=== PATIENT | female | born 2005 | race Caucasian/White ===

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

== ENCOUNTER → 2023-01-13 | Outpatient (CLI) | payer OTHER, SELFPAY ==
[2023-01-15 22:06] LABS: Chlamydia By Nucleic Acid AMP Negative (Negative); Gonococcus By Nucleic Acid AMP Negative (Negative)
== END | disposition home or self-care (01) ==
LOC: LABSPEC 16:55
PROVIDERS: PCP Pediatrics; Referring Provider Registered Nurse; Visit Provider Registered Nurse
DX: Z11.3 Encounter for screening for infections with a predominantly sexual mode of transmission (principal)
CPT/HCPCS: 87491; 87591

== ENCOUNTER → 2023-06-30 | Outpatient (CLI) | payer OTHER, SELFPAY ==
[2023-06-30 18:19] LABS: Absolute Lymphocyte Count 2.79 X10^3/uL (0.83-4.51); Absolute Neutrophil Count 5.4 X10^3/uL (2.0-7.7); Basophil# 0.02 X10^3/uL; Basophil% 0.2 % (0-1); Eosinophil# 0.02 X10^3/uL; Eosinophils% 0.2 % (0-5); Hematocrit 41.2 % (37-47); Hemoglobin 13.7 g/dL (12.0-15.0); Lymphocyte # 2.79 X10^3/ul (0.83-4.51); Lymphocyte % 32.4 % (19-41); Mean Corp Hgb Conc 33.3 g/dL (32-36); Mean Corpuscular Hgb 28.1 pg (27.0-32.0); Mean Corpuscular Volume 84.4 fL (81-99); Mean Platelet Vol. 9.2 fl (6.2-12.0); Monocyte# 0.38 X10^3/uL; Monocyte% 4.4 % (0-10); NRBC Flagged by Analyzer 0 % (0-5); Neutrophil # 5.37 X10^3/uL (2.7-7.7); Neutrophil % 62.6 % (47-70); Platelet Count 373 K/mm3 (150-450); RBC Distribution Width CV 13.7 % (11.6-14.6); RBC Distribution Width SD 42.1 fl (35.1-43.9); Red Blood Count 4.88 M/mm3 (4.2-5.4); White Blood Count 8.6 K/mm3 (4.4-11.0)
[2023-06-30 18:39] LABS: Vitamin B12 352 pg/mL (211-911); Vitamin D,25 Hydroxy 32.5 ng/mL
[2023-06-30 18:41] LABS: ALB/GLOB Ratio 0.9 RATIO (0.9-2.4); AST(SGOT) 11 U/L (15-37); Alanine Aminotransfer ALT/SGPT 14 U/L (13-56); Albumin, Serum 3.8 g/dL (3.2-5.0); Alkaline Phosphatase 48 U/L (45-117); Anion Gap 8 (5-15); BUN 13 mg/dL (7-18); BUN/Creat Ratio 18.2 RATIO (10-20); CRP 4.33 mg/L (0.0-3.0); Calcium,Total 9.2 mg/dL (8.5-10.1); Chloride 104 mmol/L (98-107); Creatinine, Serum 0.72 mg/dL (0.55-1.02); EST Glomerular Filtration Rate 110 mL/min (>60); Est Glom Filt Rate - Afr Amer 133 mL/min (>60); Ferritin 40 ng/mL (8-252); Globulin 4.1 g/dL (2.2-4.2); Glucose 89 mg/dL (74-106); Potassium 4.3 mmol/L (3.5-5.1); Protein, Total 7.9 g/dL (6.4-8.2); Rheumatoid Factor < 10.0 IU/mL (<15); Sodium Level 138 mmol/L (136-145); Thyroid Stim Hormone (TSH) 1.68 uIU/mL (0.358-3.74); Uric Acid 4.2 mg/dL (2.6-6.0)
[2023-06-30 18:44] LABS: Erythrocyte Sedimentation Rate 7 mm/hr (0-30)
[2023-07-02 12:09] LABS: ANTINUCLEAR ANTIBODIES DIRECT Negative (Negative)
== END | disposition home or self-care (01) ==
LOC: MTLAB 15:16
PROVIDERS: PCP Family Medicine; Referring Provider Family Medicine; Visit Provider Family Medicine
DX: M79.10 Myalgia, unspecified site (principal)
CPT/HCPCS: 36415; 80053; 82306; 82607; 82728; 83735; 84443; 84550; 85025; 85652; 86038; 86140; 86431

== ENCOUNTER → 2023-07-22 | Outpatient (CLI) | payer OTHER, SELFPAY ==
[2023-07-22 08:36] VITALS: PULSE 102; PULSE 103; PULSE 106; PULSE 108; PULSE 109; PULSE 110; PULSE 84; O2SAT 96; O2SAT 97; O2SAT 98
--- NOTE | 2023-07-23 13:16 | PCM.PSN.6M ---
PSN 6 Minute Walk Test 6 Minute Walk Test 6 Minute Walk Test: 6 Minute Walk Test PSN:6-Minute Walk Test Start: 07/22/23 08:36 Freq: Status: Active Protocol: [id number] Document 07/22/23 08:36 EW (Rec: 07/22/23 08:38 EW Desktop) 6 Minute Walk Test Date Performed 07/22/23 Time Performed 08:15 Height 5 ft 3 in Weight: 127 lb Weight in Pounds 127.0 lbs Assistive device used: None Pre-test Oxygen Delivery Method Room Air Pulse Ox 98 Pulse Rate (60-100) 84 Dyspnea Shirin Scale (0-10) 0 Exertion Shirin Scale (6-20) 6 1st minute Oxygen Delivery Method Room Air Pulse Ox 97 Pulse Rate (60-100) 109 H 2nd minute Oxygen Delivery Method Room Air Pulse Ox 96 Pulse Rate (60-100) 110 H 3rd minute Oxygen Delivery Method Room Air Pulse Ox 96 Pulse Rate (60-100) 106 H 4th minute Oxygen Delivery Method Room Air Pulse Ox 98 Pulse Rate (60-100) 102 H 5th minute Oxygen Delivery Method Room Air Pulse Ox 97 Pulse Rate (60-100) 108 H 6th minute Oxygen Delivery Method Room Air Pulse Ox 97 Pulse Rate (60-100) 109 H Post-test Oxygen Delivery Method Room Air Pulse Ox 98 Pulse Rate (60-100) 103 H Dyspnea Shirin Scale (0-10) 2 Exertion Shirin Scale (6-20) 7 Full Laps Walked 21 Partial Lap, Number of Tiles Walked 0 Total Distance Walked (ft) 1239 Interpretation Interpretation: The patient ambulated 1239 feet over the course of 6 minutes beginning on room air without assistive devices. Pretesting oxygen saturation was noted to be 98% on room air. With ambulation, the karin oxygen saturation was 96%. There was no significant exertional oxygen desaturation. Recommendations Recommendations: There is no indication for the use of supplemental oxygen at this time.
== END | disposition home or self-care (01) ==
LOC: PSN 08:18
PROVIDERS: PCP Family Medicine; Referring Provider Nurse Practitioner Acute Care; Visit Provider Nurse Practitioner Acute Care
DX: R06.02 Shortness of breath (principal)
CPT/HCPCS: 94618

== ENCOUNTER → 2023-07-24 | Outpatient (CLI) | payer OTHER, SELFPAY ==
--- NOTE | 2023-07-24 12:57 | PFT ---
INTRODUCTION: The patient is a 18-year-old female who presents for pulmonary function studies secondary to a diagnosis of shortness of breath. Respiratory therapy reported good patient effort. Bronchodilators were used during testing. INTERPRETATION: Forced expiration spirometry demonstrates no evidence of a large airways obstructive ventilatory defect. There was no significant response to aerosolized bronchodilators. Body plethysmography was performed and revealed lung volumes to be within normal limits. Diffusing capacity by single breath CO is also within normal limits. IMPRESSION: Grossly normal pulmonary function studies.
== END | disposition home or self-care (01) ==
LOC: SL 10:39
PROVIDERS: PCP Family Medicine; Referring Provider Nurse Practitioner Acute Care; Visit Provider Nurse Practitioner Acute Care
DX: G47.10 Hypersomnia, unspecified (principal); R06.02 Shortness of breath
CPT/HCPCS: 94060; 94726; 94729; 95810

== ENCOUNTER → 2023-12-05 | Outpatient (CLI) | payer OTHER, SELFPAY | END | disposition home or self-care (01) | PROVIDERS: PCP Family Medicine; Referring Provider Nurse Practitioner; Visit Provider Nurse Practitioner | DX: N39.0 Urinary tract infection, site not specified (principal) | CPT/HCPCS: 87086; 87088 ==

== ENCOUNTER → 2023-12-12 | Outpatient (CLI) | payer OTHER, SELFPAY | END | disposition home or self-care (01) | LOC: LAB 14:06 | PROVIDERS: Referring Provider Otolaryngology; Visit Provider Otolaryngology | DX: T78.40XA Allergy, unspecified, initial encounter (principal) | CPT/HCPCS: 36415; 82785; 86003 ==

== ENCOUNTER 2024-01-27 05:02 | Emergency (ER) | payer OTHER, SELFPAY ==
[2024-01-27 05:04] VITALS: BP 130/97; PULSE 89; RESP 25; TEMP 36.3; O2SAT 98; BMI 23.6
--- NOTE | 2024-01-27 05:24 | RAD_ITS ---
INDICATION: cough EXAMINATION/TECHNIQUE: X-RAY - XR Chest 2 Views COMPARISON: 09/26/2018 FINDINGS: LINES/DEVICES: None. LUNGS: No consolidation. No pneumothorax. MEDIASTINUM: Unremarkable. CARDIAC SILHOUETTE: Not enlarged. BONES AND SOFT TISSUES: No acute abnormalities. RAD/Chest PA and Lateral IMPRESSION: No evidence of active intrathoracic disease. Electronically Signed: Rola Daley MD at 7:14 EDT ,
[2024-01-27 05:40] LABS: Absolute Lymphocyte Count 3.47 X10^3/uL (0.83-4.51); Absolute Neutrophil Count 4.8 X10^3/uL (2.0-7.7); Basophil# 0.02 X10^3/uL; Basophil% 0.2 % (0-1); Eosinophil# 0.16 X10^3/uL; Eosinophils% 1.7 % (0-5); Hematocrit 35.6 % (37-47); Hemoglobin 11.9 g/dL (12.0-15.0); Lymphocyte # 3.47 X10^3/ul (0.83-4.51); Lymphocyte % 37.4 % (19-41); Mean Corp Hgb Conc 33.4 g/dL (32-36); Mean Corpuscular Hgb 27.3 pg (27.0-32.0); Mean Corpuscular Volume 81.7 fL (81-99); Mean Platelet Vol. 8.7 fl (6.2-12.0); Monocyte# 0.85 X10^3/uL; Monocyte% 9.1 % (0-10); NRBC Flagged by Analyzer 0 % (0-5); Neutrophil # 4.77 X10^3/uL (2.7-7.7); Neutrophil % 51.4 % (47-70); Platelet Count 300 K/mm3 (150-450); RBC Distribution Width CV 13.2 % (11.6-14.6); RBC Distribution Width SD 39.3 fl (35.1-43.9); Red Blood Count 4.36 M/mm3 (4.2-5.4); White Blood Count 9.3 K/mm3 (4.4-11.0)
[2024-01-27 05:57] LABS: Anion Gap 9 (5-15); BUN 9 mg/dL (7-18); BUN/Creat Ratio 14.1 RATIO (10-20); Calcium,Total 9.5 mg/dL (8.5-10.1); Chloride 105 mmol/L (98-107); Creatinine, Serum 0.64 mg/dL (0.55-1.02); EST Glomerular Filtration Rate 125 mL/min (>60); Est Glom Filt Rate - Afr Amer 151 mL/min (>60); Estimated Creatinine Clearance 115.99 ml/min; Glucose 106 mg/dL (74-106); Magnesium 1.6 mg/dL (1.6-2.6); Potassium 3.5 mmol/L (3.5-5.1); Sodium Level 136 mmol/L (136-145)
[2024-01-27] MEDS: dexAMETHasone 10 MG/ML Vial IV (06:10)
[2024-01-27] MEDS: 0.9% Normal Saline (1000mL) 1,000 ML 999 ML IV (06:10)
[2024-01-27] MEDS: Ketorolac 30 MG/ML Syringe IV (06:11)
[2024-01-27] MEDS: Orphenadrine 60 MG/2 ML Ampul IV (06:12)
--- NOTE | 2024-01-27 06:23 | EX.ED.DYSGE1 ---
HPI History of Present Illness Chief Complaint: Cough Informant: patient and family Narrative Narrative: Patient is a 18-year-old female with past medical history of asthma and anxiety. She states her asthma is relatively well-controlled with just an occasional albuterol inhaler and she states she was only admitted 1 time in her life and that was when she was a young child almost 19 years ago. 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 She reports over the last 3 days she has had nasal congestion with sore throat cough and shortness of breath sensation. She states that she feels symptoms are worsening and secondary to this comes in for evaluation [facility] Medical History ADHD Generalized anxiety disorder Depression BPPV (benign paroxysmal positional vertigo) Angioedema Earache, left Contraceptive management Sinusitis, acute, maxillary Acute otitis media, right Nausea & vomiting Abdominal pain URI (upper respiratory infection) Encounter for screening for COVID-19 GERD (gastroesophageal reflux disease) Anxiety Asthma Environmental allergies Home Medications ?Medication ?Instructions ?Recorded ?Last Taken ?Type ondansetron HCl 8 mg tablet 8 mg PO Q8H PRN nausea and 04/18/23 Unknown Rx vomiting #30 tabs clonazepam 0.5 mg tablet 0.5 mg PO DAILY PRN anxiety 07/17/23 Unknown History albuterol 90 mcg-budesonide 80 2 inh inhalation ONCE #10.7 grams 11/11/23 Unknown Rx mcg/actuation HFA aerosol inhaler (Airsupra) pantoprazole 40 mg tablet,delayed 40 mg PO BID 11/11/23 Unknown History release propranolol 20 mg tablet 20 mg PO BID 11/11/23 Unknown History sucralfate 1 gram tablet 1 g PO TID 11/11/23 Unknown History fluconazole 150 mg tablet 150 mg PO ONCE #1 TAB 12/05/23 Unknown Rx escitalopram oxalate 20 mg tablet 20 mg PO DAILY 30 days #30 tabs 12/22/23 Unknown Rx azelastine 137 mcg (0.1 %) nasal 2 spray intranasal BID #30 mL 01/27/24 Unknown Rx spray hydrocodone-homatropine 5 mg-1.5 5 ml PO 4X/DAY PRN cough 7 days 01/27/24 Unknown Rx mg/5 mL (5 mL) oral syrup (Hycodan) #140 mL prednisone 20 mg tablet 40 mg (2 x 20 mg) PO DAILY 5 days 01/27/24 Unknown Rx #10 tabs Allergy/AdvReac Type Severity Reaction Status Date / Time cyclobenzaprine (From Allergy Hives Verified 01/27/24 05:08 Flexeril) sulfamethoxazole (From Allergy Hives Verified 01/27/24 05:08 Bactrim) trimethoprim (From Bactrim) Allergy Hives Verified 01/27/24 05:08 amoxicillin (From Augmentin) AdvReac Diarrhea Verified 01/27/24 05:08 clavulanic acid (From AdvReac Diarrhea Verified 01/27/24 05:08 Augmentin) Family History Other Breast cancer Hypertension Thyroid disorder Social History Smoking Status: Never smoker alcohol intake: never substance use type: does not use what type of physical activity do you participate in: none ROS ROS ED Constitutional Constitutional ED: Reports chills, fever(s) and subjective Eyes Eyes: Denies change in vision ENT ENT ED: Reports rhinorrhea and sore throat; Denies ear pain Cardiovascular Cardiovascular: Denies chest pain Respiratory/Chest Respiratory/Chest: Reports cough and dyspnea Gastrointestinal Gastrointestinal: Denies abdominal pain, diarrhea, nausea or vomiting Genitourinary Genitourinary ED: Denies dysuria Musculoskeletal Musculoskeletal: Reports myalgias Integumentary Denies rash Neurologic Neurologic: Reports headache(s) Psychiatric Psychiatric: Reports anxiety Hematologic/Lymphatic Hematologic/Lymphatic: Denies easy bleeding or easy bruising Allergic/Immunologic Allergic/Immunologic ED: Denies mouth swelling, tongue swelling or urticaria EXAM Physical Exam Const Vital Signs: 01/27/24 05:04 01/27/24 05:08 01/27/24 07:04 Temperature 97.3 F L Temperature Source Temporal Pulse Rate 89 85 Respiratory Rate 25 H 20 H Respiratory Effort Normal Blood Pressure 130/97 H 124/91 H Blood Pressure Mean 108 102 Pulse Ox 98 98 Oxygen Delivery Method Room Air Positive well nourished and well developed General Appearance ED: well developed; Negative for pallor HEENT Reports moist mucous membranes HEENT Narrative: No tongue or lip swelling no oral lesions no airway edema or compromise Nasal mucosa is hyperemic and boggy There is cobblestoning noted in the posterior pharynx consistent with sinus drainage Eyes PERRL and EOMs intact bilaterally General Eye ED: Negative for scleral icterus Neck supple Neck Narrative: No nuchal rigidity or meningeal signs Chest Wall Chest Narrative: No bony deformity or crepitance of the chest wall but patient does have diffuse chest wall pain on palpation that she states is the same pain she has been experiencing Resp normal respiratory effort Resp Narrative: Breath sounds are slight diminished throughout with faint rhonchi in the lower lobes without nasal flaring retractions tachypnea or accessory muscle use Cardio regular rate and regular rhythm Rate: other Other Details: Heart is regular rate and rhythm without murmurs rubs or gallops Radial and carotid pulses are equal and symmetric GI normal to inspection, nondistended, normoactive bowel sounds, non-tender, non-distended and no masses Auscultation: normoactive bowel sounds Palpation: soft Extremity normal to inspection Extremity Narrative: No asymmetric edema no pitting edema negative Homans' sign bilaterally Neuro oriented x3, CN's II-XII intact bilaterally and no sensory deficits noted Sensorium / Orientation: alert Motor Exam: strength 5/5 throughout Psych Psych Narrative: Patient has a nervous/anxious affect Skin no rashes or lesions noted and no wounds General Skin Exam: Negative for jaundice or pallor MDM MDM MDM Narrative Medical decision making narrative: Patient arrived to the ER mildly tachypneic and hypertensive but was sobbing and emotional. Once her anxiety was under control her blood pressure and breathing rate improved. Differential diagnosis is for upper respiratory tract infection versus pneumonia versus pneumothorax versus acute blood loss anemia versus electrolyte abnormality. Secondary to this a chest x-ray and basic blood work was obtained. Labs revealed no clinically significant findings and chest x-ray revealed no acute lung pathology such as pneumonia pneumothorax or pneumomediastinum. After she was hydrated and given Toradol and Norflex as well as Robitussin AC she did have moderate improvement of her symptoms and vitals were improved. As she is not requiring supplemental oxygen and she is not in respiratory distress and workup does not reveal any clinically significant findings I feel she can be placed on symptomatic medication and is otherwise safe for discharge History & Record Review Discussion w/independent historian: Patient and Family Lab Data Attestation: I reviewed the patient's lab results. Labs: Laboratory Results - last 24 hr 01/27/24 05:35 WBC 9.3 RBC 4.36 Hgb 11.9 L Hct 35.6 L MCV 81.7 MCH 27.3 MCHC 33.4 RDW Std Deviation 39.3 RDW Coeff of Rene 13.2 Plt Count 300 MPV 8.7 Immature Gran % (Auto) 0.200 Neut % (Auto) 51.4 Lymph % (Auto) 37.4 [place] % (Auto) 9.1 Eos % (Auto) 1.7 Baso % (Auto) 0.2 Absolute Neuts (auto) 4.8 Absolute Lymphs (auto) 3.47 Nucleated RBC % 0 Sodium 136 Potassium 3.5 Chloride 105 Carbon Dioxide 22.0 Anion Gap 9 BUN 9 Creatinine 0.64 Estim Creat Clear Calc 115.99 Est GFR (MDRD) Af Amer 151 Est GFR (MDRD) Non-Af 125 BUN/Creatinine Ratio 14.1 Glucose 106 Calcium 9.5 Magnesium 1.6 Radiography Diagnostic Testing: Clinical Impression(s) from Imaging Studies Chest X-Ray 01/27/24 05:24 IMPRESSION: No evidence of active intrathoracic disease. Electronically Signed: Rola Daley MD at 7:14 EDT , 2 view chest x-ray as interpreted by the emergency medicine physician reveals no acute infiltrate pneumothorax or pleural effusion Discharge Plan Triage Chief Complaint: Cough ED Provider: Rafael Juárez Dx/Rx/DC Orders Clinical Impression: Viral upper respiratory tract infection with cough, Generalized anxiety disorder Instructions: ED URI, Viral, No Abx (Adult) Prescriptions: New prednisone 20 mg tablet 40 mg PO DAILY 5 Days Qty: 10 0RF azelastine 137 mcg (0.1 %) spray,non-aerosol 2 spray intranasal BID Qty: 30 0RF Rx Instructions: administer into each nostril hydrocodone-homatropine [Hycodan] 5-1.5 mg/5 mL (5 mL) syrup 5 ml PO 4X/DAY PRN (Reason: cough) 7 Days Qty: 140 0RF No Action clonazepam 0.5 mg tablet 0.5 mg PO DAILY PRN (Reason: anxiety) propranolol 20 mg tablet 20 mg PO BID sucralfate 1 gram tablet 1 g PO TID pantoprazole 40 mg tablet,delayed release (DR/EC) 40 mg PO BID Airsupra 90-80 mcg/actuation HFA aerosol inhaler 2 inh inhalation ONCE Qty: 10.7 11RF Rx Instructions: as a single dose; may repeat up to 6 doses per day (12 inhalations) escitalopram oxalate 20 mg tablet 20 mg PO DAILY 30 Days Qty: 30 2RF fluconazole 150 mg tablet 150 mg PO ONCE Qty: 1 0RF Rx Instructions: as a single dose ondansetron HCl 8 mg tablet 8 mg PO Q8H PRN (Reason: nausea and vomiting) Qty: 30 0RF Stand Alone Forms: ED Work / School Excuse Primary Care Provider: Lynda Pepper Referrals: [facility] Lynda Ramos [Primary Care Provider] - Activity Restrictions/Additional Instructions: Your symptoms are consistent with a viral upper respiratory tract infection which will take on average 2 to 3 weeks to resolve. Take the medication as directed to control symptoms and return to the ER should you have any further concerns Print Language: Slovak Disposition Disposition: Home, Self Care
[2024-01-27] MEDS: guaiFENesin/Codeine 5 ML UDC 10 ML PO (07:03)
[2024-01-27 07:04] VITALS: BP 124/91; PULSE 85; RESP 20; O2SAT 98
== END 2024-01-27 07:37 | disposition home or self-care (01) ==
PROVIDERS: Emergency Provider Emergency Medicine; Visit Provider Emergency Medicine
DX: J06.9 Acute upper respiratory infection, unspecified (principal); F41.1 Generalized anxiety disorder; R05.9 Cough, unspecified; K21.9 Gastro-esophageal reflux disease without esophagitis; F32.A Depression, unspecified; Z79.899 Other long term (current) drug therapy
CPT/HCPCS: 71046; 80048; 83735; 85025; 96361; 96374; 96375; 99282; A4216

== ENCOUNTER → 2024-03-16 | Outpatient (CLI) | payer OTHER, SELFPAY ==
--- NOTE | 2024-03-16 13:50 | RAD_ITS ---
STUDY: X-RAY - LEFT FOOT CLINICAL: Female, 19 years old. Medial foot pain with bruising and swelling. TECHNIQUE: 3 view(s) of the foot. COMPARISON: None. FINDINGS: Normal talus, calcaneus, and tarsal bones. Normal visualized subtalar, talonavicular, calcaneocuboid, tarsal and tarsometatarsal articulations. Normal metatarsi. Normal metatarsophalangeal joint of the great toe. Normal tibial and fibular sesamoid bones. Normal interphalangeal joint of the great toe. Normal phalanges of the great toe. Normal second through fifth metatarsophalangeal joints. Normal interphalangeal joints and phalanges of the lesser toes. The soft tissue structures are unremarkable. RAD/Foot min 3 Views IMPRESSION: Normal x-ray examination of the foot. Electronically Signed: Ellis Jurado MD at 14:58 EDT ,
--- NOTE | 2024-03-16 13:50 | RAD_ITS ---
STUDY: X-RAY - LEFT ANKLE REASON FOR EXAM: Female, 19 years old. Pain and swelling. No known injury. TECHNIQUE: 3 view(s) of the ankle. COMPARISON: None. FINDINGS: Normal visualized distal tibia and fibula. Normal medial and lateral malleoli. Normal tibiotalar articulation and ankle mortise. Normal visualized talus and calcaneus. The visualized subtalar, talonavicular, calcaneocuboid and tarsal articulations are normal. The soft tissue structures are unremarkable. RAD/Ankle min 3 Views IMPRESSION: Normal x-ray examination of the ankle. Electronically Signed: Ellis Jurado MD at 14:58 EDT ,
== END | disposition home or self-care (01) ==
LOC: MTRAD 13:50
PROVIDERS: Referring Provider Physician Assistant; Visit Provider Physician Assistant
DX: T14.8XXA Other injury of unspecified body region, initial encounter (principal)
CPT/HCPCS: 73610; 73630

== ENCOUNTER → 2024-03-25 | Outpatient (CLI) | payer OTHER, SELFPAY ==
[2024-03-29 03:06] LABS: Chlamydia By Nucleic Acid AMP Negative (Negative); Gonococcus By Nucleic Acid AMP Negative (Negative)
[2024-03-31 16:26] LABS: HPV Reflexed? NOT INDICATED
== END | disposition home or self-care (01) ==
LOC: LABSPEC 15:35
PROVIDERS: Referring Provider Nurse Practitioner Family; Visit Provider Nurse Practitioner Family
DX: Z12.4 Encounter for screening for malignant neoplasm of cervix (principal); N89.8 Other specified noninflammatory disorders of vagina; Z20.2 Contact with and (suspected) exposure to infections with a predominantly sexual mode of transmission; N91.2 Amenorrhea, unspecified
CPT/HCPCS: 87070; 87205; 87491; 87591; 88175; G0145

== ENCOUNTER → 2024-04-06 | Outpatient (CLI) | payer OTHER, SELFPAY ==
--- NOTE | 2024-04-06 14:58 | US_ITS ---
STUDY: ULTRASOUND OF THE FEMALE PELVIS - COMPLETE REASON FOR EXAM: Female, 19 years old. pelvic pain LMP: 02/28/2024 TECHNIQUE: Transabdominal and Transvaginal TECHNICAL QUALITY: Adequate. COMPARISON: None. FINDINGS: The uterus is retroflexed and is in a midline position. The uterus measures 6.8 x 4.5 x 3.4 cm. Normal uterine cervix. The endometrium measures 10 mm in thickness, and is hyperechoic. There is no demonstrated endometrial mass. There is no demonstrated myometrial mass. I.U.D. - The patient does not have an I.U.D. The right ovary is visualized. The right ovary measures 2.2 x 1.8 x 1.9 cm. There is no right ovarian cyst or ovarian mass. There is no visualized right adnexal mass or complex lesion. There is normal arterial and normal venous vascularity. The left ovary is visualized. The left ovary measures 1.4 x 1.2 x 2.7 cm. There is no left ovarian cyst or ovarian mass. There is no visualized left adnexal mass or complex lesion. There is normal arterial and normal venous vascularity. There is no fluid in the cul-de-sac. The pre void volume of the bladder was 383 ml. Polycystic ovary disease: No. US/Pelvic w/ Transvaginal IMPRESSION: Normal female pelvis. Electronically Signed: Danny Zurita MD at 22:46 EDT ,
== END | disposition home or self-care (01) ==
LOC: US 14:56
PROVIDERS: Referring Provider Obstetrics & Gynecology; Visit Provider Obstetrics & Gynecology
DX: R10.2 Pelvic and perineal pain (principal)
CPT/HCPCS: 76830; 76856

== ENCOUNTER 2024-07-07 15:37 | Emergency (ER) | payer OTHER, SELFPAY ==
[2024-07-07 15:37] VITALS: BP 144/113; PULSE 113; RESP 20; TEMP 37.3; O2SAT 99; BMI 26.4
--- NOTE | 2024-07-07 16:02 | US_ITS ---
EXAM: US PELVIS TRANSABDOMINAL, COMPLETE CLINICAL INDICATION: RLQ pain, hx of cyst TECHNIQUE: Transabdominal pelvic ultrasound was performed with grayscale and color Doppler imaging. COMPARISON: April 06, 2024. FINDINGS: UTERUS/CERVIX: 8 cm x 4.7 cm x 2.4 cm. Anteverted. There is no uterine mass. Normal 1.6 mm endometrial stripe thickness. RIGHT OVARY: Unremarkable. 2.7 cm x 1.8 cm x 2.2 cm. Non-enlarged, normal echogenicity. Blood flow is present in the right ovary. LEFT OVARY: Unremarkable. 3.7 cm x 2.3 cm x 1.5 cm Non-enlarged, normal echogenicity. Blood flow is present in the left ovary. FREE FLUID: None. BLADDER: Unremarkable as visualized. 9.3 cm x 7.6 cm x 9.1 cm. Wall is normal thickness for degree of distention. Calculated volume 337 cc. US/Pelvic (Non ) IMPRESSION: Unremarkable pelvic ultrasound. Electronically Signed: Mariah Griffin MD at 17:15 EST ,
--- NOTE | 2024-07-07 16:09 | EDS_ITS ---
HPI History of Present Illness Chief Complaint: Nausea/Vomiting Informant: patient Narrative Narrative: Patient is a 19-year-old female with history of generalized anxiety disorder, ADHD and GERD presenting for abdominal pain. Patient states that started rather suddenly about an hour ago. She states for she had pain in her epigastric region but it quickly radiated down her right lower quadrant. She notes that she was drinking a smoothie when this started. She notes it radiates slightly from her right lower quadrant to her suprapubic region. She had a bowel movement about 40 minutes ago that was diarrhea. She thought that maybe she had a bowel movement her pain would help but it is not. The pain has been constant but oscillates in intensity. She notes it is worse if she sits upright or takes a deep breath. She does have a history of ovarian cysts and is also been having abnormal menstrual cycles. She states has been having menstrual bleeding for the past 4 weeks. She states she follows with [facility] and they wanted to do a repeat pelvic ultrasound but she has not done it. She states she did vomit twice and it looked like brown mashed potatoes. She is worried there is blood in there. She has previously been on Protonix but ran out about 3 weeks ago has not been taking it. She denies any black or blood in her stool. She notes that she did just get the medication refilled today. Did not take any of her symptoms prior to arrival. No other complaints or concerns reported at this time. She has had prior endoscopy but never had any abdominal surgeries. 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 She denies any GI bugs going around at this time. She denies any sick contacts. [facility] Medical History URI (upper respiratory infection) Sprain of left foot Left ankle sprain ADHD Generalized anxiety disorder Depression BPPV (benign paroxysmal positional vertigo) Angioedema Earache, left Contraceptive management Sinusitis, acute, maxillary Acute otitis media, right Abdominal pain Encounter for screening for COVID-19 GERD (gastroesophageal reflux disease) Anxiety Asthma Environmental allergies Home Medications ?Medication ?Instructions ?Recorded ?Last Taken ?Type clonazepam 0.5 mg tablet 0.5 mg PO DAILY PRN anxiety 07/17/23 Unknown History pantoprazole 40 mg tablet,delayed 40 mg PO BID 11/11/23 Unknown History release propranolol 20 mg tablet 20 mg PO BID 11/11/23 Unknown History escitalopram oxalate 20 mg tablet 20 mg PO DAILY 30 days #30 tabs 02/25/24 Unknown Rx diphenhydramine HCl 25 mg capsule 25 mg PO TID PRN 03/25/24 Unknown History (Benadryl) viloxazine 200 mg capsule,extended 200 mg PO DAILY #30 caps 04/13/24 Unknown Rx release 24 hr drospirenone 3 mg-ethinyl 1 tab PO QDAY #84 tabs 06/07/24 Unknown Rx estradiol 0.02 mg tablet (Jaimie (28)) dicyclomine 10 mg capsule 20 mg (2 x 10 mg) PO TID PRN 07/07/24 Unknown Rx abdominal discomfort #20 CAPSULES doxepin 10 mg capsule 10 mg PO QHS PRN sleep #30 caps 07/07/24 Unknown Rx ondansetron 4 mg disintegrating 4 mg PO Q8H PRN PRN Nausea #15 tabs 07/07/24 Unknown Rx tablet polyethylene glycol 3350 17 17 g PO DAILY #119 grams 07/07/24 Unknown Rx gram/dose oral powder (Miralax) sennosides 8.6 mg capsule (senna) 8.6 mg PO BID PRN constipation #10 07/07/24 Unknown Rx caps simethicone 80 mg chewable tablet 80 mg PO TID PRN abdominal 07/07/24 Unknown Rx distention #20 tabs Allergy/AdvReac Type Severity Reaction Status Date / Time cyclobenzaprine (From Allergy Hives Verified 07/07/24 15:37 Flexeril) Sulfa (Sulfonamide Allergy Hives Verified 07/07/24 15:37 Antibiotics) sulfamethoxazole (From Allergy Hives Verified 07/07/24 15:37 Bactrim) trimethoprim (From Bactrim) Allergy Hives Verified 07/07/24 15:37 amoxicillin (From Augmentin) AdvReac Diarrhea Verified 07/07/24 15:37 clavulanic acid (From AdvReac Diarrhea Verified 07/07/24 15:37 Augmentin) Family History Father Afib Other Breast cancer Hypertension Thyroid disorder Social History Smoking Status: Never smoker alcohol intake: current alcohol intake frequency: a few times a week Alcohol type: wine substance use type: does not use what type of physical activity do you participate in: none ROS ROS ED Constitutional Constitutional ED: Denies chills or fever(s) Cardiovascular Cardiovascular: Denies chest pain Respiratory/Chest Respiratory/Chest: Denies cough or dyspnea Gastrointestinal Gastrointestinal: Reports abdominal pain, diarrhea, nausea and vomiting Genitourinary Genitourinary ED: Reports other Details: Abnormal vaginal bleeding ; Denies dysuria, hematuria or urinary frequency Musculoskeletal Musculoskeletal: Denies arthralgias, back pain or myalgias Integumentary Denies rash Neurologic Neurologic: Denies headache(s) Psychiatric Psychiatric: Reports anxiety Hematologic/Lymphatic Hematologic/Lymphatic: Denies easy bleeding or easy bruising EXAM Physical Exam Const Vital Signs: 07/07/24 15:37 07/07/24 17:37 07/07/24 19:00 Temperature 99.1 F Temperature Source Oral Pulse Rate 113 H 94 69 Respiratory Rate 20 H 18 16 Blood Pressure 144/113 H 138/99 H 112/78 Blood Pressure Mean 123 112 89 Pulse Ox 99 95 99 Oxygen Delivery Method Room Air Room Air 07/07/24 20:38 Temperature 97.9 F Temperature Source Pulse Rate 70 Respiratory Rate 18 Blood Pressure 110/60 Blood Pressure Mean 76 Pulse Ox 98 Oxygen Delivery Method Positive well nourished and well developed General Appearance ED: well developed and NAD HEENT Reports moist mucous membranes Eyes PERRL Neck supple Chest Wall inspection of chest normal and palpation of chest normal Resp normal respiratory effort and clear to auscultation bilaterally Cardio regular rate and regular rhythm GI Inspection: Negative for abdominal distention Auscultation: normoactive bowel sounds Palpation: soft and tender RLQ and suprapubic; Negative for guarding Extremity normal to inspection Neuro oriented x3 Sensorium / Orientation: alert Motor Exam: Negative for general weakness Psych Mood & Affect: anxious and tearful Skin no rashes or lesions noted and no wounds MDM MDM MDM Narrative Medical decision making narrative: Patient evaluated for sudden onset of abdominal pain that quickly localized to the right lower quadrant. Patient is quite anxious upon arrival. She reports associated vomiting and episode of diarrhea. Vital signs are significant for low-grade temperature by 9.1, tachycardia with a heart rate of 113 and mild hypertension with a blood pressure of 144/113. Differential includes acute appendicitis, colitis, small bowel obstruction, volvulus, intussusception, renal colic, ovarian torsion and ruptured ovarian cyst Patient is given a dose of IV Haldol she is incredibly anxious as well as nauseous and a dose of morphine for pain control. Will reevaluate for response. Patient does have improvement. She did start to complain of more pain and is given Toradol. Her lab work is incredibly normal with a normal white blood cell count, normal lactate, normal CMP and normal urinalysis. Serum is negative. Pelvic ultrasound is obtained which does not show any acute abnormali ty. Given her normal lab work and workup so far but continued pain we discussed further imaging, x-ray versus CT abdomen and pelvis. Shared decision making used and we will perform an x-ray as I do question of this could be more constipation or gas pains causing her symptoms. She is given simethicone in the emergency room. Abdominal x-ray viewed by myself as well as radiology shows moderate colonic gas but no abnormal dilation or concern for air-fluid levels. Patient does feel further improved on repeat evaluation. Is comfortable discharge home. Is given return precautions. Is given prescription for senna as well as MiraLAX for constipation, simethicone and Bentyl for abdominal pain and also prescription for Zofran. Given return precautions. Patient and her mother verbalized agreement understand this plan. Patient discharged home in stable and improved condition. Lab Data Attestation: I reviewed the patient's lab results. Labs: Laboratory Results - last 24 hr 07/07/24 07/07/24 16:11 17:00 WBC 9.0 RBC 4.57 Hgb 12.2 Hct 37.7 MCV 82.5 MCH 26.7 L MCHC 32.4 RDW Std Deviation 42.5 RDW Coeff of Rene 14.0 Plt Count 343 MPV 8.8 Immature Gran % (Auto) 0.300 Neut % (Auto) 56.5 Lymph % (Auto) 36.3 Scott % (Auto) 5.9 Eos % (Auto) 0.7 Baso % (Auto) 0.3 Absolute Neuts (auto) 5.1 Absolute Lymphs (auto) 3.27 Nucleated RBC % 0 Sodium 138 Potassium 3.5 Chloride 106 Carbon Dioxide 26.0 Anion Gap 6 BUN 13 Creatinine 0.64 Estim Creat Clear Calc 123.57 Est GFR (MDRD) Af Amer 150 Est GFR (MDRD) Non-Af 124 BUN/Creatinine Ratio 20.2 H Glucose 95 Lactic Acid 1.8 Calcium 9.1 Total Bilirubin 0.60 AST 14 L ALT 18 Alkaline Phosphatase 63 Total Protein 7.4 Albumin 3.6 Globulin 3.8 Albumin/Globulin Ratio 0.9 Serum , Qual NEGATIVE Urine Color Straw Urine Clarity Clear Urine pH 7.0 Ur Specific [place] 1.010 Urine Protein Negative Urine Glucose (UA) Normal Urine Ketones Negative Urine Occult Blood 10 H Urine Nitrite Negative Urine Bilirubin Negative Urine Urobilinogen Normal Ur Leukocyte Esterase Negative Urine RBC 0 SEEN Urine WBC 0 SEEN Ur Squamous Epith Cells 0-5 SEEN Urine Bacteria 0 SEEN Urine Mucus 0 SEEN Radiography Diagnostic Testing: Clinical Impression(s) from Imaging Studies Pelvis Ultrasound 07/07/24 16:02 IMPRESSION: Unremarkable pelvic ultrasound. Electronically Signed: Mariah Griffin MD at 17:15 EST Reading Location ID and State: [facility] / [place] Tel , Service support , Abdomen X-Ray 07/07/24 17:54 IMPRESSION: Nonspecific findings. Moderate colon gas. No suspicious dilated small bowel. Electronically Signed: Mariah Griffin MD at 20:01 EST Reading Location ID and State: [facility] / [place] Tel , Service support , Discharge Plan Triage Chief Complaint: Nausea/Vomiting ED Provider: Monserrat Baeza Dx/Rx/DC Orders Clinical Impression: Abdominal pain, Constipation Instructions: ED Abdominal Pain Unkn Cause Fem, ED Constipation (Adult) Prescriptions: New ondansetron 4 mg tablet,disintegrating 4 mg PO Q8H PRN PRN (Reason: Nausea) Qty: 15 0RF dicyclomine 10 mg capsule 20 mg PO TID PRN (Reason: abdominal discomfort) Qty: 20 0RF simethicone 80 mg tablet,chewable 80 mg PO TID PRN (Reason: abdominal distention) Qty: 20 0RF senna 8.6 mg capsule 8.6 mg PO BID PRN (Reason: constipation) Qty: 10 0RF polyethylene glycol 3350 [Miralax] 17 gram/dose powder 17 g PO DAILY Qty: 119 0RF No Action clonazepam 0.5 mg tablet 0.5 mg PO DAILY PRN (Reason: anxiety) propranolol 20 mg tablet 20 mg PO BID pantoprazole 40 mg tablet,delayed release (DR/EC) 40 mg PO BID escitalopram oxalate 20 mg tablet 20 mg PO DAILY 30 Days Qty: 30 2RF viloxazine 200 mg capsule,extended release 24hr 200 mg PO DAILY Qty: 30 2RF diphenhydramine HCl [Benadryl] 25 mg capsule 25 mg PO TID PRN drospirenone-ethinyl estradiol [Jaimie (28)] 3-0.02 mg tablet 1 tab PO QDAY Qty: 84 1RF Rx Instructions: BINH- Brand only no generic. doxepin 10 mg capsule 10 mg PO QHS PRN (Reason: sleep) Qty: 30 0RF Stand Alone Forms: ED Work / School Excuse Primary Care Provider: Gini Rodríguez Referrals: Gini Rodríguez, DO [Primary Care Provider] - Activity Restrictions/Additional Instructions: Your lab work was normal today. Your ultrasound was normal. Your x-ray showed a decent amount of stool and I suspect your pain is constipation/gas pain related. You been prescribed medications to help with this. You may alternate ibuprofen and Tylenol for pain control. If you develop fever, worsening pain or worsening vomiting please return the emergency room for repeat evaluation Print Language: Hebrew Disposition Disposition: Home, Self Care Discharge Date/Time: 07/07/24 20:38
[2024-07-07] MEDS: Haloperidol Lactate 5 MG/ML Vial 1 MG IV (16:11)
[2024-07-07] MEDS: Morphine 4 MG/ML Syringe IV (16:12)
[2024-07-07 16:21] LABS: Absolute Lymphocyte Count 3.27 X10^3/uL (0.83-4.51); Absolute Neutrophil Count 5.1 X10^3/uL (2.0-7.7); Basophil# 0.03 X10^3/uL; Basophil% 0.3 % (0-1); Eosinophil# 0.06 X10^3/uL; Eosinophils% 0.7 % (0-5); Hematocrit 37.7 % (37-47); Hemoglobin 12.2 g/dL (12.0-15.0); Lymphocyte # 3.27 X10^3/ul (0.83-4.51); Lymphocyte % 36.3 % (19-41); Mean Corp Hgb Conc 32.4 g/dL (32-36); Mean Corpuscular Hgb 26.7 pg (27.0-32.0); Mean Corpuscular Volume 82.5 fL (81-99); Mean Platelet Vol. 8.8 fl (6.2-12.0); Monocyte# 0.53 X10^3/uL; Monocyte% 5.9 % (0-10); NRBC Flagged by Analyzer 0 % (0-5); Neutrophil % 56.5 % (47-70); Platelet Count 343 K/mm3 (150-450); RBC Distribution Width SD 42.5 fl (35.1-43.9); Red Blood Count 4.57 M/mm3 (4.2-5.4)
[2024-07-07 16:36] LABS: Internal QC Validated? YES +Cl - CLEAR BKGD; Pregnancy, Serum, hCG Quali. NEGATIVE Negative
[2024-07-07 16:45] LABS: ALB/GLOB Ratio 0.9 RATIO (0.9-2.4); AST(SGOT) 14 U/L (15-37); Alanine Aminotransfer ALT/SGPT 18 U/L (13-56); Albumin, Serum 3.6 g/dL (3.2-5.0); Alkaline Phosphatase 63 U/L (45-117); Anion Gap 6 (5-15); BUN 13 mg/dL (7-18); BUN/Creat Ratio 20.2 RATIO (10-20); Calcium,Total 9.1 mg/dL (8.5-10.1); Chloride 106 mmol/L (98-107); Creatinine, Serum 0.64 mg/dL (0.55-1.02); EST Glomerular Filtration Rate 124 mL/min (>60); Est Glom Filt Rate - Afr Amer 150 mL/min (>60); Estimated Creatinine Clearance 123.57 ml/min; Globulin 3.8 g/dL (2.2-4.2); Glucose 95 mg/dL (74-106); Potassium 3.5 mmol/L (3.5-5.1); Protein, Total 7.4 g/dL (6.4-8.2); Sodium Level 138 mmol/L (136-145)
[2024-07-07 16:48] LABS: Lactic Acid 1.8 mmol/L (0.4-1.9)
[2024-07-07 17:07] LABS: Bacteria 0 SEEN /hpf (None Seen); Mucous, Urine 0 SEEN /hpf (<or=2+); Red Blood Cells-Urine 0 SEEN /hpf (0-5); White Blood Cells 0 SEEN /hpf (0-5)
[2024-07-07 17:37] VITALS: BP 138/99; PULSE 94; RESP 18; O2SAT 95
[2024-07-07 17:37] LABS: Color, Urine Straw (Yellow); Glucose, Dipstick Normal (Normal); Ketone-Dipstick Negative (Negative); Leukocyte Esterase-Dipstick Negative /ul (Negative); Nitrite-Dipstick Negative (Negative); Occult Blood-Urine 10 /ul (Negative); Protein-Dipstick Negative (Negative); Urine Bilirubin Dipstick Negative (Negative); Urine Clarity Clear (Clear); Urine Urobilinogen Normal (Normal)
--- NOTE | 2024-07-07 17:54 | RAD_ITS ---
EXAM: XR ABDOMEN, 2 VIEWS CLINICAL INDICATION: abd pain TECHNIQUE: Frontal view of the abdomen/pelvis with upright view of the abdomen. COMPARISON: January 27, 2024 chest radiograph. FINDINGS: LOWER THORAX: No acute pathology. INTRAPERITONEAL SPACE: No free air. GASTROINTESTINAL TRACT: Moderate gas in the colon. Mild gastric air bubble. Minimal if any small bowel gas. Mild intracolonic stool. Non-obstructive. No bowel or stomach distention. ORGANS: Unremarkable as visualized. No organomegaly. No abnormal calcifications. BONES/JOINTS: A lucency consistent with tampon is noted over the lower pelvis. SOFT TISSUES: No acute pathology. OTHER FINDINGS: No visible appendicolith. RAD/Abd Inc Decub and/or Erect IMPRESSION: Nonspecific findings. Moderate colon gas. No suspicious dilated small bowel. Electronically Signed: Mariah Griffin MD at 20:01 EST ,
[2024-07-07 18:09] LABS: Squamous Epithelial Cells - UA 0-5 SEEN /hpf (5-10)
[2024-07-07 19:00] VITALS: BP 112/78; PULSE 69; RESP 16; O2SAT 99
[2024-07-07] MEDS: Ketorolac 15 MG/ML Vial IV (19:11)
[2024-07-07] MEDS: SimETHICONE 80 MG Chewable Tablet PO (19:12)
[2024-07-07 20:38] VITALS: BP 110/60; PULSE 70; RESP 18; TEMP 36.6; O2SAT 98
== END 2024-07-07 20:38 | disposition home or self-care (01) ==
PROVIDERS: Emergency Provider Emergency Medicine; PCP Family Medicine; Visit Provider Emergency Medicine
DX: R10.9 Unspecified abdominal pain (principal); K59.00 Constipation, unspecified; I10 Essential (primary) hypertension; R11.2 Nausea with vomiting, unspecified; K21.9 Gastro-esophageal reflux disease without esophagitis; J45.909 Unspecified asthma, uncomplicated
CPT/HCPCS: 74019; 76856; 80053; 81001; 83605; 84703; 85025; 93976; 96374; 96375; 99282; A4216

== ENCOUNTER → 2024-08-17 | Outpatient (CLI) | payer OTHER, SELFPAY | END | disposition home or self-care (01) | LOC: RAD 13:04 | PROVIDERS: PCP Family Medicine; Referring Provider Nurse Practitioner Acute Care; Visit Provider Nurse Practitioner Acute Care | DX: K59.00 Constipation, unspecified (principal); R13.10 Dysphagia, unspecified; K21.9 Gastro-esophageal reflux disease without esophagitis; R10.84 Generalized abdominal pain | CPT/HCPCS: 74230 ==

== ENCOUNTER → 2024-08-23 | Outpatient (CLI) | payer OTHER, SELFPAY ==
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
--- NOTE | 2024-08-23 09:08 | RAD_ITS ---
STUDY: X-RAY - ESOPHAGUS (BARIUM SWALLOW) WITH FLUOROSCOPY REASON FOR EXAM: Female, 19 years old. Dysphagia, choking TECHNIQUE: 66 fluoroscopic view(s) of the esophagus were obtained following swallowing of barium. FLUOROSCOPY TIME (if supplied): (32 seconds) minutes/seconds. 34 mGy. COMPARISON: None. FINDINGS: There is no demonstrated esophageal foreign body. There is no demonstrated stricture or mucosal abnormality. Normal gastroesophageal junction, without a demonstrated hiatal hernia. The patient ingested a 12 mm tablet of barium without any difficulty. Normal visualized aortic arch and descending thoracic aorta. Normal visualized pulmonary parenchyma. Normal visualized osseous structures of the thorax. RAD/Esophagus Dual Contrast IMPRESSION: Normal plain film x-ray examination (barium swallow) of the esophagus. Electronically Signed: Ellis Jurado MD at 12:12 EST ,
== END | disposition home or self-care (01) ==
LOC: RAD 09:04
PROVIDERS: PCP Family Medicine; Referring Provider Nurse Practitioner Acute Care; Visit Provider Nurse Practitioner Acute Care
DX: K59.00 Constipation, unspecified (principal); R13.10 Dysphagia, unspecified; K21.9 Gastro-esophageal reflux disease without esophagitis; R10.84 Generalized abdominal pain

== ENCOUNTER 2024-09-16 10:03 | Day surgery (SDC) | payer OTHER, SELFPAY ==
[2024-09-16] VITALS (9 sets, daily range): BP systolic 98–177; BP diastolic 66–153; PULSE 74–96; RESP 16–18; TEMP 36.4–36.8; O2SAT 95–100; BMI 24.5
[2024-09-16 10:40] LABS: Internal QC Validated? YES +Cl - CLEAR BKGD; Pregnancy, Urine Negative Negative
--- NOTE | 2024-09-16 10:48 | PRE.ANES_ITS ---
ASA Classification* ASA Classification ASA Classification: 2 Assessment & Plan Anesthesia* Anesthesia Assessment Anesthesia Assessment: Discussed sedation and/or anesthesia options, risks, benefits, and alternatives with patient/parents/legal guardian/POA. Questions invited. The patient/parents/legal guardian/POA seems to understand and agrees to proceed with anesthesia plan. Reviewed the physical assessment, medical history, allergy history and patient home medications list prior to surgery/procedure/anesthetic and documented any changes. Performed airway and anesthesia risk assessments. Anesthesia Type Anesthesia Type: MAC History Source History Obtained from:: Patient and Chart Anesthesia Focused Assessment* Temperature: 97.5 F Pulse Rate: 96 Blood Pressure: 121/91 Respiratory Rate: 18 Pulse Ox: 98 Oxygen Delivery Method: Room Air Airway Assessment Mouth opens: >3 cm Mallampati Score: II Teeth Condition: Intact Neck Range of motion (ROM): Full ROM Focused Labs Anesthesia Preop lab: CBC WBC 9.0 K/mm3 (4.4-11.0) 07/07/24 16:11 07/07/24 RBC 4.57 M/mm3 (4.2-5.4) 07/07/24 16:11 07/07/24 Hgb 12.2 g/dL (12.0-15.0) 07/07/24 16:11 07/07/24 Hct 37.7 % (37-47) 07/07/24 16:11 07/07/24 Plt Count 343 K/mm3 (150-450) 07/07/24 16:11 07/07/24 CHEMISTRY Potassium 3.5 mmol/L (3.5-5.1) 07/07/24 16:11 07/07/24 Sodium 138 mmol/L (136-145) 07/07/24 16:11 07/07/24 Magnesium 1.6 mg/dL (1.6-2.6) 01/27/24 05:35 01/27/24 BUN 13 mg/dL (7-18) 07/07/24 16:11 07/07/24 Creatinine 0.64 mg/dL (0.55-1.02) 07/07/24 16:11 07/07/24 Glucose 95 mg/dL (74-106) 07/07/24 16:11 07/07/24 TSH 1.68 uIU/mL (0.358-3.74) 06/30/23 15:18 COAG Urine Test Negative Negative 09/16/24 10:15 09/16/24 Tst Clinic Negative 03/25/24 14:32 03/25/24 Pre-Assessment Diagnosis/Proposed Procedure Planned Operative Procedure(s): COLONOSCOPY Anesthesia History Anesthesia History - travel occupational therapist: Anesthesia History - travel occupational therapist Hx Hospitalization No 09/15/24 12:41 Any Problems With Anesthesia No 09/15/24 12:41 Cholinesterase deficiency No 09/15/24 12:41 You/Your Family Experience No 09/15/24 12:41 fever (hyperthermia) with Relationship Recent Exposure to Contagious Yes 09/16/24 10:28 Disease Does patient have nerve No 09/15/24 12:41 stimulator Patient instructed to have device shut off --Does patient have Pacemaker No 09/16/24 10:28 or ICD? When Was Last Pacemaker Check QUESTION #4 FULL TEXT: You/Your Family Experience fever (hyperthermia) with Anesthesia Last Oral Intake Last Oral intake: Last Oral Intake NPO since 05:00 09/16/24 10:28 Meds taken in AM with sips of No 09/16/24 10:28 water? Meds patient instructed to take am of surgery Any additional information?: Yes NPO since: 05:00 (Patient had water at 5 AM.) PONV PONV - travel occupational therapist: PONV - travel occupational therapist Female Yes 09/15/24 12:41 HX of Motion Sickness No 09/15/24 12:41 HX of N/V After Surgery No 09/15/24 12:41 Non-Smoker Yes 09/15/24 12:41 Duration of Surgery greater No 09/15/24 12:41 than 60 minutes Number of Risk Factors 2 09/15/24 12:41 PONV Score Moderate Risk 09/15/24 12:41 Height & Weight Height & Weight: Anesthesia: Height & Weight Height 5 ft 2 in 09/16/24 10:28 Weight: 61 kg 09/16/24 10:28 Body Mass Index (BMI) 24.5 09/16/24 10:28 Respiratory Assessment Respiratory Assessment - travel occupational therapist: Respiratory Tract Infection Hx - travel occupational therapist Hx Respiratory Tract Infection No 09/15/24 12:41 STOP Sleep Apnea STOP Sleep Apnea - travel occupational therapist: STOP Sleep Apnea - travel occupational therapist Hx Hypertension No 09/15/24 12:41 Hx Sleep Apnea No 09/15/24 12:41 CPAP BIPAP Do you snore loudly (louder No 09/15/24 12:41 than talking or can be heard Do you often feel tired/ No 09/15/24 12:41 fatigued/ sleepy during daytime? Has anyone observed you stop No 09/15/24 12:41 breathing during sleep? STOP Results Negative 09/15/24 12:41 QUESTION #5 FULL TEXT : Do you snore loudly (louder than talking or can be heard through closed doors)? 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 Specify any problems Hx of Preganancy in last 3 No 09/15/24 12:41 Months Nurse Filling Out Transfusion [facility] 09/15/24 12:41 & Questions: Date: 09/15/24 09/15/24 12:41 Time: 12:50 09/15/24 12:41 Patient unable to answer at this time (ie. confused, unrespo /Reproduction History /Reproductive History - travel occupational therapist: /Reproductive Hx- travel occupational therapist Hx Now No 09/15/24 12:41 Gestational Age (in weeks): EDC: Hx Hx Para Hx Section SAB No 09/15/24 12:41 PFSH Medical History Wears glasses ADHD Depression Anxiety Migraine headache Gastric reflux Non-smoker Asthma History of Holter monitoring Hypertension Sprain of left foot Left ankle sprain ADHD Generalized anxiety disorder Depression BPPV (benign paroxysmal positional vertigo) Angioedema Earache, left Contraceptive management Constipation Sinusitis, acute, maxillary Acute otitis media, right Abdominal pain URI (upper respiratory infection) Encounter for screening for COVID-19 GERD (gastroesophageal reflux disease) Anxiety Asthma Environmental allergies Home Medications ?Medication ?Instructions ?Recorded ?Last Taken ?Type clonazepam 0.5 mg tablet 0.5 mg PO DAILY PRN anxiety 07/17/23 09/15/24 History propranolol 20 mg tablet 20 mg PO BID 11/11/23 History diphenhydramine HCl 25 mg capsule 25 mg PO TID PRN itc missy 03/25/24 Unknown History (Benadryl) drospirenone 3 mg-ethinyl 1 tab PO QDAY #84 tabs 06/07 Unknown Rx estradiol 0.02 mg tablet (Jaimie (28)) ondansetron 4 mg disintegrating 4 mg PO Q8H PRN PRN Na usea #15 tabs 07/07/24 Unknown Rx tablet linaclotide 145 mcg capsule 145 mcg PO .COMPLEX #90 ca ps 07/15/24 Unknown Rx (Linzess) dextroamphetamine-amphetamine 5 mg 5 mg PO BID 30 days #60 tabs 09/07/24 09/15/24 Rx tablet (Adderall) escitalopram oxalate 20 mg tablet 20 mg PO DAILY 30 da ys #30 tabs 09/07/24 Unknown Rx Allergy/AdvReac Type Severity Reaction Status Date / Time cyclobenzaprine (From Allergy Hives Verified 09/16/24 10:26 Flexeril) pineapple Allergy Hives Verified 09/16/24 10:26 Sulfa (Sulfonamide Allergy Hives Verified 09/16/24 10:26 Antibiotics) sulfamethoxazole (From Allergy Hives Verified 09/16/24 10:26 Bactrim) trimethoprim (From Bactrim) Allergy Hives Verified 09/16/24 10:26 amoxicillin (From Augmentin) AdvReac Diarrhea Verified 09/16/24 10:26 clavulanic acid (From AdvReac Diarrhea Verified 09/16/24 10:26 Augmentin) Family History Father Afib Other Breast cancer Hypertension Thyroid disorder Surgical History History of esophagogastroduodenoscopy (EGD) Social History Smoking Status: Never smoker alcohol intake: current alcohol intake frequency: a few times a week Alcohol type: wine substance use type: does not use what type of physical activity do you participate in: none Review of Systems (Anesthesia) ROS Narrative System reviewed and no additional complaints, except as documented.
--- NOTE | 2024-09-16 11:02 | PCM.HP.STD ---
HPI - General General Date of Admission: 09/16/24 Date of Service: 09/16/24 Chief Complaint: abdominal pain and diarrhea HPI Narrative CHER ANTONIO, is a 19 F who presents for endoscopic evaluation of abdominal pain and diarrhea - seen in the office with mom today - pain was sharp and stabbing, sudden onset, generalized, but started in lower abdomen- changed to dull stabbing pain in ED - constant pain - she was having diarrhea prior to pain - this is unusual for her - she took a magnesium liquid liquid yesterday - took all night to work - finds that she has to take something to have a BM - denies any family h/o IBD - reports a family h/o IBS - she is seen in the office today with her mom - reports she wakes up every day and something else wrong - she has quite a bit of anxiety - c/o chronic fatigue - reports everyone thinks it is all in her head - feels like providers do not listen to her - reports she has been suffering with pain since she was a child - c/o pain every where, joints ache constantly - has never seen rheumatology - reports she breaks out in hives after every meal and they itch terribly - food allergy panel - negative but reports she knows she is allergic to pineapple - she is not taking Senna - ED prescribed Ondansetron, dicyclomine, miralax, senna - she is not taking miralax or senna - rpeorts they do not work - carafate TID and pantoprazole BID - reports reflux is an issue - reports she is unable to belch - has a fear of vomiting - has been on PPI BID for a while - EGD 5-6 years ago - normal - BM fluctuate - longest she has gone up to 2 weeks without a BM - bowels can change with dietary changes - denies any bleeding - skin prick as a child negative per patient - hives itching all over after eating - weight is fluctuating - currently in a gaining spiral B: coffee with cream L: yogurt bowl, chick-marlon-a D: rice, protein, vegetable - very little water intake - very little fiber intake [facility] Medical History Wears glasses ADHD Depression Anxiety Migraine headache Gastric reflux Non-smoker Asthma History of Holter monitoring Hypertension Sprain of left foot Left ankle sprain ADHD Generalized anxiety disorder Depression BPPV (benign paroxysmal positional vertigo) Angioedema Earache, left Contraceptive management Constipation Sinusitis, acute, maxillary Acute otitis media, right Abdominal pain URI (upper respiratory infection) Encounter for screening for COVID-19 GERD (gastroesophageal reflux disease) Anxiety Asthma Environmental allergies Home Medications ?Medication ?Instructions ?Recorded ?Last Taken ?Type clonazepam 0.5 mg tablet 0.5 mg PO DAILY PRN anxiety 07/17/23 09/15/24 History propranolol 20 mg tablet 20 mg PO BID 11/11/23 09/15/24 History diphenhydramine HCl 25 mg capsule 25 mg PO TID PRN itching 03/25/24 Unknown History (Benadryl) drospirenone 3 mg-ethinyl 1 tab PO QDAY #84 tabs 06/07/24 Unknown Rx estradiol 0.02 mg tablet (Jaimie (28)) ondansetron 4 mg disintegrating 4 mg PO Q8H PRN PRN Nausea #15 tabs 07/07/24 Unknown Rx tablet linaclotide 145 mcg capsule 145 mcg PO .COMPLEX #90 caps 07/15/24 Unknown Rx (Linzess) dextroamphetamine-amphetamine 5 mg 5 mg PO BID 30 days #60 tabs 09/07/24 09/15/24 Rx tablet (Adderall) escitalopram oxalate 20 mg tablet 20 mg PO DAILY 30 days #30 tabs 09/07/24 Unknown Rx Allergy/AdvReac Type Severity Reaction Status Date / Time cyclobenzaprine (From Allergy Hives Verified 09/16/24 10:26 Flexeril) pineapple Allergy Hives Verified 09/16/24 10:26 Sulfa (Sulfonamide Allergy Hives Verified 09/16/24 10:26 Antibiotics) sulfamethoxazole (From Allergy Hives Verified 09/16/24 10:26 Bactrim) trimethoprim (From Bactrim) Allergy Hives Verified 09/16/24 10:26 amoxicillin (From Augmentin) AdvReac Diarrhea Verified 09/16/24 10:26 clavulanic acid (From AdvReac Diarrhea Verified 09/16/24 10:26 Augmentin) Family History Father Afib Other Breast cancer Hypertension Thyroid disorder Surgical History History of esophagogastroduodenoscopy (EGD) Social History Smoking Status: Never smoker alcohol intake: current alcohol intake frequency: a few times a week Alcohol type: wine substance use type: does not use what type of physical activity do you participate in: none ROS Constitutional Constitutional: Denies fatigue, fever(s), poor appetite, weight gain or weight loss Gastrointestinal Gastrointestinal: Denies belching, bloating, change in bowel habits, change in stool character, chewing difficulty, coffee ground emesis, constipation, cramping, diarrhea, dyspepsia, dysphagia, early satiety, excessive flatus, fecal incontinence, heartburn, hematemesis, hematochezia, hemorrhoids, loose stools, melena, nausea, odynophagia, rectal bleeding, tenesmus, vomiting or weight changes Vital Signs Vital Signs Vital Signs: 09/16/24 10:28 09/16/24 10:28 09/16/24 10:55 Temperature 97.5 F L 97.5 F L Temperature Source Temporal Pulse Rate 96 96 Respiratory Rate 18 18 Respiratory Pattern Normal Blood Pressure 121/91 H 121/91 H Blood Pressure Mean 101 Blood Pressure Source Monitor Blood Pressure Position Semi-Fowlers Blood Pressure Location Right Arm Pulse Ox 98 98 Oxygen Delivery Method Room Air Room Air Weight Weight: 134 lb 7.712 oz Body Mass Index (BMI) 24.5 Physical Exam Const alert, oriented x3, no apparent distress and healthy appearing General Appearance: cooperative GI normal to inspection, nondistended, normoactive bowel sounds, soft to palpation, non-tender and non-distended Percussion: normal to percussion Rectal Exam: deferred Results Lab / Micro Data Labs: Laboratory Results - last 24 hr 09/16/24 10:15: Urine Test Negative Assessment & Plan Assessment/Plan (1) Dysphagia: (2) Constipation: (3) Diarrhea: PLAN: Plan Assessment and Plan Assessment and Plan (1) Constipation: Status: Acute (2) GERD (gastroesophageal reflux disease): Status: Acute (3) Abdominal pain: Status: Acute Qualifiers: Abdominal location: generalized Qualified Code(s): R10.84 - Generalized abdominal pain (4) Dysphagia: Status: Acute Orders: Orders Esophagus Dual Contrast 07/15/24 K21.9 - Gastro-esophageal reflux disease without esophagitis, K59.00 - Constipation, unspecified, R10.84 - Generalized abdominal pain, R13.10 - Dysphagia, unspecified Swallowing Function w/Video 07/15/24 K21.9 - Gastro-esophageal reflux disease without esophagitis, K59.00 - Constipation, unspecified, R10.84 - Generalized abdominal pain, R13.10 - Dysphagia, unspecified Colonoscopy 6 Weeks K21.9 - Gastro-esophageal reflux disease without esophagitis, K59.00 - Constipation, unspecified, R10.84 - Generalized abdominal pain, R13.10 - Dysphagia, unspecified Medications: New sucralfate (Carafate) 1 g orally dissolve in 5cc of water and drink once a daily before lunch; 90 tabs 1RF vonoprazan (Voquezna) 20 mg PO QDAY 30 tabs 3RF sod sulf-pot chloride-mag sulf 1.479-0.188- 0.225 gram (Sutab) orally Take as directed for split dose bowel prep. DO NOT follow instructions on box; PO PER PKG DIR 24 tabs 0RF linaclotide (Linzess) 145 mcg orally once daily 30 minutes before breakfast; 90 caps 2RF K59.00 - Constipation, unspecified Discontinued pantoprazole Discontinued Reason: Order Changed 40 mg PO BID sucralfate (Carafate) Discontinued Reason: Order Changed 1 g PO QAC Plan 19y/o female presents for initial consultation with complaints of abdominal pain and constipation. She was seen in the ED on 07/07/2024. CBC. CMP and UA were unremarkable in the ED. ABD x-ray revealed moderate gas. Pelvic US was unremarkable. She has quite a bit of anxiety and reports chronic generalized pain with negatiuve work-up, hives with any PO intake with previous negative allergy testing, reflux despite BID PPI and TID sucralfate, dysphagia, belching, and emetophobia. She reports a family history of IBS, denies any family h/o IBD. She reports an EGD revealed gastritis 5-6 years ago. I have made recommendations as outlined below. She will follow-up in the office post procedure. 1. Increase water intake 2. Start a probiotic (Align, Culturelle or [facility]) 3. Dissolve Carafate in 5cc of water and take 30 minutes before lunch 4. Discontinue pantoprazole 5. Start Voquezna 20mg once daily with our without food (samples provided and RX sent to [facility]) 6. Start Linzess 145mcg once daily, take on an empty stomach 30 minute before breakfast every day. Call with symptom update in 3 weeks 7. Increase dietary fiber 8. Start daily fiber supplement either Benefiber 2tsp once daily or Fibercon tablets 2 tablets once daily. 9. Follow-up with PCP for rheumatology referral 10. Schedule Cookie Swallow, Esophagram and Colonoscopy 11. Follow-up in office 2 weeks post procedure MODIFIED BOWEL PREP --WHAT YOU NEED: Mirlax 7 dose bottle, Dulcolax laxative tablets (2 tablets), Gas-X (4 tablets), Sutab prep (sent to pharmacy) 2 days before your procedure You may have a light breakfast and light lunch At 1 pm start a clear liquid diet and take 2 Gas-X tablets At 130pm take 2 Dulcolax tablets and Mix 7 dose bottle of Miralax with 32 ounces of Gatorade and put in fridge to chill At 5pm take 2 Gas-X and begin drinking Miralax at a rat eof 8 ounces every 30 minutes until gone You may continue clear liquids until bed DAY PRIOR to your procedure - follow instructions as outlined on Sutab prep instructions provided today Patient Instructions: 1. Increase water intake 2. Start a probiotic (Align, Culturelle or [facility] [facility]) 3. Dissolve Carafate in 5cc of water and take 30 minutes before lunch 4. Discontinue pantoprazole 5. Start Voquezna 20mg once daily with or without food (samples provided and RX sent to [facility]) 6. Start Linzess 145mcg once daily, take on an empty stomach 30 minute before breakfast every day. Call with symptom update in 3 weeks 7. Increase dietary fiber 8. Start daily fiber supplement either Benefiber 2tsp once daily or Fibercon tablets 2 tablets once daily. 9. Follow-up with PCP for rheumatology referral 10. Schedule Cookie Swallow, Esophagram and Colonoscopy 11. Follow-up in office 2 weeks post procedure MODIFIED BOWEL PREP --WHAT YOU NEED: Mirlax 7 dose bottle, Dulcolax laxative tablets (2 tablets), Gas-X (4 tablets), Sutab prep (sent to pharmacy) 2 days before your procedure You may have a light breakfast and light lunch At 1 pm start a clear liquid diet and take 2 Gas-X tablets At 130pm take 2 Dulcolax tablets and Mix 7 dose bottle of Miralax with 32 ounces of Gatorade and put in fridge to chill At 5pm take 2 Gas-X and begin drinking Miralax at a rat eof 8 ounces every 30 minutes until gone You may continue clear liquids until bed DAY PRIOR to your procedure - follow instructions as outlined on Sutab prep instructions provided today Plan Details Follow Up: 6 Weeks
--- NOTE | 2024-09-16 11:15 | COLBX_PTH ---
PATIENT: CHER ANTONIO LOC: EN U#:[id number] AGE/SX: 19/F ROOM: RE09/16/[address]: Dr. Colt Jackson DO : 2005 BED: DIS: 09/16/2024 SPEC #: [id number] RECD: 09/16/24 13:35 STATUS: KEANU SMITH #: [id number] AKASH: 09/16/24 11:[address]: Colt Jackson DEPT: SURGICAL PATHOLOGY RECD BY: Amish Perez ENTERED: 09/16/24 13:51 SP TYPE: COLON BX OTHR DR: Gini Rodríguez, [facility], DO Tissues: A - Ileum, NOS B - COLON BIOPSY Procedures: Surgery Specimen Level IV HEADER OPERATION: Colonoscopy, biopsy PRE-OP DIAGNOSIS: Dysphagia, constipation, diarrhea TISSUE SUBMITTED: A- Terminal ileum biopsy, B- Random colonic biopsy MICROSCOPIC DIAGNOSIS A. Terminal ileum, biopsy: Fragments of small intestinal mucosa, no pathologic diagnosis. B. 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 SJ.mr 09/17/2024 MICROSCOPIC DESCRIPTION Slides are reviewed. GROSS DESCRIPTION A. Received in fixative is one container labeled with the patient's name and designated Terminal ileum biopsy. The specimen consists of one irregular fragment of light young soft tissue that measures 0.5 x 0.3 x 0.1 cm. The specimen is totally submitted in one cassette. B. Received in fixative is one container labeled with the patient's name and designated Random colonic biopsy. The specimen consists of multiple irregular fragments of light young soft tissue that in aggregate measure 1.5 x 0.5 x 0.1 cm. The specimen is totally submitted in one cassette. mr 09/16/2024 [id number]
--- NOTE | 2024-09-16 11:31 | OP.COLON_ITS ---
Patient Name: Nona Brownlee Procedure Date: 09/16/2024 11:05 AM Date of : 2005 Age: 19 Procedure: Colonoscopy Indications: Abdominal pain in the left lower quadrant, Periumbilical abdominal pain, Abdominal pain in the right lower quadrant, Suspected irritable bowel syndrome Providers: Colt Jackson DO Referring MD: Gini Rodríguez Do Medicines: Monitored Anesthesia Care Patient Profile: This is a 19 year old female. Refer to note in patient chart for documentation of history and physical. Last Colonoscopy: none. The patient's first colonoscopy is today. Complications: No immediate complications. Procedure: Pre-Anesthesia Assessment: - Prior to the procedure, a History and Physical was performed, and patient medications and allergies were reviewed. The patient is competent. The risks and benefits of the procedure and the sedation options and risks were discussed with the patient. All questions were answered and informed consent was obtained. Patient identification and proposed procedure were verified by the physician in the pre-procedure area. Mental Status Examination: alert and oriented. Airway Examination: normal oropharyngeal airway and neck mobility. Respiratory Examination: clear to auscultation. CV Examination: normal. Prophylactic Antibiotics: The patient does not require prophylactic antibiotics. Prior Anticoagulants: The patient has taken no anticoagulant or antiplatelet agents except for NSAID medication. ASA Grade Assessment: II - A patient with mild systemic disease. After reviewing the risks and benefits, the patient was deemed in satisfactory condition to undergo the procedure. The anesthesia plan was to use monitored anesthesia care (MAC). Immediately prior to administration of medications, the patient was re-assessed for adequacy to receive sedatives. The heart rate, respiratory rate, oxygen saturations, blood pressure, adequacy of pulmonary ventilation, and response to care were monitored throughout the procedure. The physical status of the patient was re-assessed after the procedure. After I obtained informed consent, the scope was passed under direct vision. Throughout the procedure, the patient's blood pressure, pulse, and oxygen saturations were monitored continuously. The Colonoscope was introduced through the anus and advanced to the cecum, identified by appendiceal orifice and ileocecal valve. The colonoscopy was performed without difficulty. The patient tolerated the procedure well. The quality of the bowel preparation was adequate. The terminal ileum, ileocecal valve, appendiceal orifice, and rectum were photographed. Scope In: 11:14:51 AM Scope Withdrawal Time 0 hours 6 minutes 47 seconds Scope Out: 11:28:13 AM Total Procedure Duration Time 0 hours 13 minutes 22 seconds Findings: The perianal and digital rectal examinations were normal. The colon (entire examined portion) appeared normal. Biopsies were taken with a cold forceps for histology. Verification of patient identification for the specimen was done. Estimated blood loss was minimal. The terminal ileum appeared normal. Biopsies were taken with a cold forceps for histology. Verification of patient identification for the specimen was done. Estimated blood loss was minimal. Impression: - The entire examined colon is normal. Biopsied. - The examined portion of the ileum was normal. Biopsied. Recommendation: - Discharge patient to home. - Resume previous diet. - Continue present medications. - Await pathology results. - Repeat colonoscopy at age 43 for screening purposes. Procedure Code(s): --- Professional --- 41999, Colonoscopy, flexible; with biopsy, single or multiple CPT copyright 2021 [employer]. All rights reserved. The codes documented in this report are preliminary and upon medical insurance coder review may be revised to meet current compliance requirements. Colt Jackosn DO 09/16/2024 11:31:10 AM This report has been signed electronically. Number of Addenda: 0 Note Initiated On: 09/16/2024 11:05 AM
--- NOTE | 2024-09-16 11:32 | OP.CCLET_ITS ---
09/16/2024 Gini Rodríguez Do Re : Colonoscopy procedure for Nona Brownlee Dear Marcos This procedure was performed on September. My impressions and recommendations are as follows: Impressions : - The entire examined colon is normal. Biopsied. - The examined portion of the ileum was normal. Biopsied. Recommendations : - Discharge patient to home. - Resume previous diet. - Continue present medications. - Await pathology results. - Repeat colonoscopy at age 43 for screening purposes. My findings are described in the full procedure note, which is enclosed. If I can be of further assistance, please feel free to contact me at . Sincerely, Colt Jackson DO 09/16/2024 11:31:10 AM This report has been signed electronically.
--- NOTE | 2024-09-16 11:34 | PCM.POST.ANE ---
Anesthesia: Postop Eval I Current Vital Signs Temperature: 98.2 F Pulse Rate: 80 Blood Pressure: 112/68 Respiratory Rate: 16 Pulse Ox: 100 Oxygen Delivery Method: Room Air Assessment Airway patent: Yes Spontaneous unlabored respirations: Yes Mental status: Asleep nausea: No Vomiting: No Anesthesia Complication: No Fluid Hydration Crystalloid volume administer (ml): 10 Total IV fluid infused: 10 Progress Note Anesthesia document: Postop Eval 1 completed: Yes
--- NOTE | 2024-09-16 11:51 | POSTOPAN2_ITS ---
Anesthesia Postop Eval I Sum Postop Eval Completion status Anesthesia document: Postop Eval 1 completed: Yes Anesthesia Postop Eval I Summary Anesthesia Postop Eval I Summary: Anesthesia Postop Eval I: Assessment Summary Airway patent Yes 09/16/24 11:36 PLASTIC SHEETING CUTTER.[email or web address] Spontaneous unlabored Yes 09/16/24 11:36 PLASTIC SHEETING CUTTER.JSWI respirations Mental status Asleep 09/16/24 11:36 PLASTIC SHEETING CUTTER.JSWI nausea No 09/16/24 11:36 PLASTIC SHEETING CUTTER.JSWI Vomiting No 09/16/24 11:36 PLASTIC SHEETING CUTTER.JSWI Anesthesia Postop Eval I: Fluid Summary Crystalloid volume administer 10 09/16/24 11:36 PLASTIC SHEETING CUTTER.JSWI (ml) Colloids volume administered ( ml) Blood Product volume administered (ml) Total IV fluid infused 10 09/16/24 11:36 PLASTIC SHEETING CUTTER.JSWI Anesthesia Postop Eval I: Summary Notes Anesthesia Complication No 09/16/24 11:36 PLASTIC SHEETING CUTTER.JSWI Anesthesia Complication Comment: Post-operative progress note Anesthesia: Postop Eval II Evaluation Mental status: Calm and Asleep Pain Level: 0 nausea: No Vomiting: No
--- NOTE | 2024-09-16 11:51 | PCM.POSTANE2 ---
Anesthesia Postop Eval I Sum Postop Eval Completion status Anesthesia document: Postop Eval 1 completed: Yes Anesthesia Postop Eval I Summary Anesthesia Postop Eval I Summary: Anesthesia Postop Eval I: Assessment Summary Airway patent Yes 09/16/24 11:36 SPONGE PACKER.[email or web address] Spontaneous unlabored Yes 09/16/24 11:36 SPONGE PACKER.JSWI respirations Mental status Asleep 09/16/24 11:36 SPONGE PACKER.JSWI nausea No 09/16/24 11:36 SPONGE PACKER.JSWI Vomiting No 09/16/24 11:36 SPONGE PACKER.JSWI Anesthesia Postop Eval I: Fluid Summary Crystalloid volume administer 10 09/16/24 11:36 SPONGE PACKER.JSWI (ml) Colloids volume administered ( ml) Blood Product volume administered (ml) Total IV fluid infused 10 09/16/24 11:36 SPONGE PACKER.JSWI Anesthesia Postop Eval I: Summary Notes Anesthesia Complication No 09/16/24 11:36 SPONGE PACKER.JSWI Anesthesia Complication Comment: Post-operative progress note Anesthesia: Postop Eval II Evaluation Mental status: Calm and Asleep Pain Level: 0 nausea: No Vomiting: No
--- NOTE | 2024-09-16 15:39 | POSTOPAN2_ITS ---
Anesthesia Postop Eval I Sum Postop Eval Completion status Anesthesia document: Postop Eval 1 completed: Yes Anesthesia Postop Eval I Summary Anesthesia Postop Eval I Summary: Anesthesia Postop Eval I: Assessment Summary Airway patent Yes 09/16/24 11:36 CREDENTIALING MANAGER.JSWI Spontaneous unlabored Yes 09/16/24 11:36 CREDENTIALING MANAGER.JSWI respirations Mental status Calm,Asleep 09/16/24 11:51 CREDENTIALING MANAGER.CSIR nausea No 09/16/24 11:51 CREDENTIALING MANAGER.CSIR Vomiting No 09/16/24 11:51 CREDENTIALING MANAGER.CSIR Anesthesia Postop Eval I: Fluid Summary Crystalloid volume administer 10 09/16/24 11:36 CREDENTIALING MANAGER.JSWI (ml) Colloids volume administered ( ml) Blood Product volume administered (ml) Total IV fluid infused 10 09/16/24 11:36 CREDENTIALING MANAGER.JSWI Anesthesia Postop Eval I: Summary Notes Anesthesia Complication No 09/16/24 11:36 CREDENTIALING MANAGER.JSWI Anesthesia Complication Comment: Post-operative progress note Anesthesia: Postop Eval II Evaluation Mental status: Awake and Calm Pain Level: 0 nausea: No Vomiting: No Complications Anesthesia Complication: No
--- NOTE | 2024-09-16 15:39 | PCM.POSTANE2 ---
Anesthesia Postop Eval I Sum Postop Eval Completion status Anesthesia document: Postop Eval 1 completed: Yes Anesthesia Postop Eval I Summary Anesthesia Postop Eval I Summary: Anesthesia Postop Eval I: Assessment Summary Airway patent Yes 09/16/24 11:36 WORDPRESS DEVELOPER.[email or web address] Spontaneous unlabored Yes 09/16/24 11:36 WORDPRESS DEVELOPER.JSWI respirations Mental status Calm,Asleep 09/16/24 11:51 WORDPRESS DEVELOPER.CSIR nausea No 09/16/24 11:51 WORDPRESS DEVELOPER.CSIR Vomiting No 09/16/24 11:51 WORDPRESS DEVELOPER.CSIR Anesthesia Postop Eval I: Fluid Summary Crystalloid volume administer 10 09/16/24 11:36 WORDPRESS DEVELOPER.JSWI (ml) Colloids volume administered ( ml) Blood Product volume administered (ml) Total IV fluid infused 10 09/16/24 11:36 WORDPRESS DEVELOPER.JSWI Anesthesia Postop Eval I: Summary Notes Anesthesia Complication No 09/16/24 11:36 WORDPRESS DEVELOPER.JSWI Anesthesia Complication Comment: Post-operative progress note Anesthesia: Postop Eval II Evaluation Mental status: Awake and Calm Pain Level: 0 nausea: No Vomiting: No Complications Anesthesia Complication: No
== END 2024-09-16 12:32 | disposition home or self-care (01) ==
LOC: EN 10:03 → AC 10:04
PROVIDERS: Anesthesiology; PCP Family Medicine; Referring Provider Family Medicine; Visit Provider Internal Medicine Gastroenterology
PROC: 0DJD8ZZ Inspection of Lower Intestinal Tract, Via Natural or Artificial Opening Endoscopic (ICD-10-PCS; CPT 45378; principal; 2024-09-16 11:10)
DX: K59.00 Constipation, unspecified (principal); R10.84 Generalized abdominal pain; K21.9 Gastro-esophageal reflux disease without esophagitis; R19.7 Diarrhea, unspecified; I10 Essential (primary) hypertension; R13.10 Dysphagia, unspecified; Z79.899 Other long term (current) drug therapy; F90.9 Attention-deficit hyperactivity disorder, unspecified type; F32.A Depression, unspecified
CPT/HCPCS: 45380; 81025; 88305; A4216

== ENCOUNTER → 2025-02-01 | Outpatient (CLI) | payer OTHER, SELFPAY ==
[2025-02-01 12:33] LABS: Erythrocyte Sedimentation Rate 11 mm/hr (0-30)
[2025-02-01 12:36] LABS: Absolute Lymphocyte Count 3.16 X10^3/uL (0.83-4.51); Basophil# 0.04 X10^3/uL; Basophil% 0.5 % (0-1); Eosinophil# 0.12 X10^3/uL; Eosinophils% 1.4 % (0-5); Hematocrit 36.8 % (37-47); Hemoglobin 12.7 g/dL (12.0-15.0); Lymphocyte # 3.16 X10^3/ul (0.83-4.51); Lymphocyte % 35.8 % (19-41); Mean Corp Hgb Conc 34.5 g/dL (32-36); Mean Corpuscular Hgb 28.3 pg (27.0-32.0); Mean Corpuscular Volume 82.1 fL (81-99); Mean Platelet Vol. 9.5 fl (6.2-12.0); Monocyte# 0.46 X10^3/uL; Monocyte% 5.2 % (0-10); NRBC Flagged by Analyzer 0 % (0-5); Neutrophil # 5.03 X10^3/uL (2.7-7.7); Neutrophil % 56.9 % (47-70); Platelet Count 372 K/mm3 (150-450); RBC Distribution Width CV 14.2 % (11.6-14.6); Red Blood Count 4.48 M/mm3 (4.2-5.4); White Blood Count 8.8 K/mm3 (4.4-11.0)
[2025-02-01 12:54] LABS: Hemoglobin A1c 5.1 % (<=5.6)
[2025-02-01 13:32] LABS: ALB/GLOB Ratio 1.3 RATIO (0.9-2.4); AST(SGOT) 13 U/L (<=31); Alanine Aminotransfer ALT/SGPT 7 U/L (<=34); Alkaline Phosphatase 58 U/L (35-104); Anion Gap 13 (5-15); BUN 13 mg/dL (4-19); BUN/Creat Ratio 21.4 RATIO (10-20); CRP 6.37 mg/L (0.0-3.0); Calcium,Total 9.3 mg/dL (7.6-11.0); Carbon Dioxide 20.9 mmol/L (21.0-32.0); Chloride 104 mmol/L (98-108); EST Glomerular Filtration Rate 130 (>60); Ferritin 38 ng/mL (22-378); Globulin 3.1 g/dL (2.2-4.2); Glucose 92 mg/dL (70-99); Magnesium 1.9 mg/dL (1.5-2.2); Potassium 3.9 mmol/L (3.3-5.1); Sodium Level 137 mmol/L (133-145); Vitamin B12 661 pg/mL (180-914)
[2025-02-02 10:08] LABS: ANTINUCLEAR ANTIBODIES DIRECT Negative (Negative)
== END | disposition home or self-care (01) ==
LOC: VSLAB 08:52
PROVIDERS: PCP Family Medicine; Visit Provider Family Medicine
DX: R73.09 Other abnormal glucose (principal); M79.10 Myalgia, unspecified site
CPT/HCPCS: 36415; 80053; 81374; 82306; 82533; 82607; 82728; 83036; 83525; 83735; 84439; 84443; 85025; 85652; 86038; 86140

== ENCOUNTER → 2025-02-02 | Outpatient (CLI) | payer OTHER, SELFPAY ==
--- NOTE | 2025-02-02 07:59 | NM_ITS ---
PROCEDURE: GASTRIC EMPTYING STUDY - 4 HR 02/02/2025 REASON FOR EXAM: NAUSEA, ABDOMINAL PAIN TECHNIQUE: The patient ingested a standard meal of 1 ache sandwich with butter and water.. There was no vomiting postprandially. Anterior and posterior planar images of the upper abdomen were obtained for 1 minute immediately following the meal at 1h, 2h and 4h if more than 10% of the activity persisted within the stomach. Regions of interest were drawn, and a geometric mean was used to calculate a [id number]. RADIOPHARMACEUTICAL: Sulfur colloid DOSE 1.2mCi FINDINGS: Percent activity remaining in stomach: 1 hour 100 % (normal 37-90%) 2 hours: 73 % (normal 30-60%) 4 hours: 1 % (normal 0-10%) NM/Gastric Emptying Study - 4 HR IMPRESSION: Normal delayed gastric emptying examination. Reading Location: [id number]
== END | disposition home or self-care (01) ==
LOC: NM 07:57
PROVIDERS: PCP Family Medicine; Referring Provider Nurse Practitioner Acute Care; Visit Provider Nurse Practitioner Acute Care
DX: K58.9 Irritable bowel syndrome, unspecified (principal); K59.04 Chronic idiopathic constipation; R11.0 Nausea
CPT/HCPCS: 78264; A9541

== ENCOUNTER → 2025-03-28 | Outpatient (CLI) | payer OTHER, SELFPAY ==
--- NOTE | 2025-03-28 09:02 | NM_ITS ---
PROCEDURE: HEPATOBILLIARY IMG W/PHARM INT 03/28/2025 REASON FOR EXAM: NAUSEA, ABD PAIN TECHNIQUE: Intravenous Choletec with planar imaging of the abdomen. RADIOPHARMACEUTICAL: Intravenous administration of 5.6 mCi technetium 99 M mebrofenin. Following this, for gallbladder ejection fraction, intravenous administration of 1.2 mcg cholecystokinin was also administered. COMPARISON: Ultrasound examination 03/28/2025 FINDINGS: There is satisfactory hepatic uptake and excretion.. Normal gallbladder visualization with the gallbladder identified by 10 minutes. Small bowel activity is not seen on the initial 60 minutes, presumably due to preferential filling of the gallbladder. Small bowel activity is seen by 10 minutes following cholecystokinin administration. Following cholecystokinin administration, a normal gallbladder ejection fraction of 57% is seen at 30 minutes. NM/Hepatobilliary Img w/Pharm Int IMPRESSION: 1. Negative hepatobiliary scan. 2. Normal gallbladder ejection fraction of 57% at 30 minutes. Reading Location: [place] [id number]
--- NOTE | 2025-03-28 09:02 | US_ITS ---
PROCEDURE: ABDOMEN LIMITED 03/28/2025 REASON FOR EXAM: ABD PAIN, NAUSEA COMPARISON: None FINDINGS: Liver: Grossly normal size and echotexture. Gallbladder: No stones, sludge, wall thickening or tenderness. Common bile duct: Normal measuring 4 mm . Pancreas: Normal Other: Visualized portions of the right kidney are unremarkable. No right upper quadrant ascites. US/Abdomen Limited IMPRESSION: NORMAL RIGHT UPPER QUADRANT ULTRASOUND. Reading Location: [id number]
== END | disposition home or self-care (01) ==
PROVIDERS: PCP Family Medicine; Referring Provider Nurse Practitioner Acute Care; Visit Provider Nurse Practitioner Acute Care
DX: R11.0 Nausea (principal); R10.84 Generalized abdominal pain
CPT/HCPCS: 76705; 78227; A9537; J2805

== ENCOUNTER 2025-04-08 05:35 | Day surgery (SDC) | payer OTHER, SELFPAY ==
--- NOTE | 2025-04-07 16:00 | PAT.ANESEVAL ---
Pre-Assessment Diagnosis/Proposed Procedure Planned Operative Procedure(s): egd Anesthesia History Anesthesia History - stockroom helper: Anesthesia History - stockroom helper Hx Hospitalization No 04/07/25 12:37 Any Problems With Anesthesia No 04/07/25 12:37 Cholinesterase deficiency No 04/07/25 12:37 You/Your Family Experience No 04/07/25 12:37 fever (hyperthermia) with Relationship Recent Exposure to Contagious Yes 09/16/24 10:28 Disease Does patient have nerve No 04/07/25 12:37 stimulator Patient instructed to have device shut off --Does patient have Pacemaker or ICD? When Was Last Pacemaker Check QUESTION #4 FULL TEXT: You/Your Family Experience fever (hyperthermia) with Anesthesia Last Oral Intake Last Oral intake: Last Oral Intake NPO since Meds taken in AM with sips of water? Meds patient instructed to take am of surgery PONV PONV - stockroom helper: PONV - stockroom helper Female Yes 04/07/25 12:37 HX of Motion Sickness No 04/07/25 12:37 HX of N/V After Surgery No 04/07/25 12:37 Non-Smoker Yes 04/07/25 12:37 Duration of Surgery greater No 04/07/25 12:37 than 60 minutes Number of Risk Factors 2 04/07/25 12:37 PONV Score Moderate Risk 04/07/25 12:37 Height & Weight Height & Weight: Anesthesia: Height & Weight Height 5 ft 2 in 01/06/25 07:02 Respiratory Assessment Respiratory Assessment - stockroom helper: Respiratory Tract Infection Hx - stockroom helper Hx Respiratory Tract Infection No 04/07/25 12:37 STOP Sleep Apnea STOP Sleep Apnea - stockroom helper: STOP Sleep Apnea - stockroom helper Hx Hypertension No 04/07/25 12:37 Hx Sleep Apnea No 04/07/25 12:37 CPAP BIPAP Do you snore loudly (louder No 04/07/25 12:37 than talking or can be heard Do you often feel tired/ No 04/07/25 12:37 fatigued/ sleepy during daytime? Has anyone observed you stop No 04/07/25 12:37 breathing during sleep? STOP Results Negative 04/07/25 12:37 QUESTION #5 FULL TEXT : Do you snore loudly (louder than talking or can be heard through closed doors)? Tobacco Use History Tobacco Use History - stockroom helper: Tobacco Use History - stockroom helper Tobacco Use Smoking Status Never smoker 04/07/25 12:37 Hx Tobacco Use No 04/07/25 12:37 Years Smoking Packs Smoked per Day Smoking Cessation Date was within the last 15 years Hx Smoking Cessation Date Hx Smoking Cessation Counseling Hematologic Medial History Hematologic Hx - stockroom helper: Hematologic Medical Hx - materials management supervisor Hx of Blood Transfusion No 04/07/25 12:37 Hx of Transfusion in last 3 No 04/07/25 12:37 Months Date of Last Transfusion (if within last 3 months) Ever experience any problems No 04/07/25 12:37 with transfusion(s)? Specify any problems Hx of Preganancy in last 3 No 04/07/25 12:37 Months Nurse Filling Out Transfusion JZOLLINGE 04/07/25 12:37 & Questions: Date: 04/07/25 04/07/25 12:37 Time: 12:38 04/07/25 12:37 Patient unable to answer at this time (ie. confused, unrespo /Reproduction History /Reproductive History - stockroom helper: /Reproductive Hx- stockroom helper Hx Now No 04/07/25 12:37 Gestational Age (in weeks): EDC: Hx Hx Para Hx Section SAB No 04/07/25 12:37 [facility] Medical History (Updated 04/07/25 @ 12:37 by Jocelyne Browne) Alcohol use Wears glasses ADHD Depression Anxiety Migraine headache Gastric reflux Non-smoker History of Holter monitoring Hypertension Sprain of left foot Left ankle sprain ADHD Generalized anxiety disorder Depression BPPV (benign paroxysmal positional vertigo) Angioedema Earache, left Contraceptive management Constipation Sinusitis, acute, maxillary Acute otitis media, right Abdominal pain URI (upper respiratory infection) Encounter for screening for COVID-19 GERD (gastroesophageal reflux disease) Anxiety Environmental allergies Home Medications ?Medication ?Instructions ?Recorded ?Last Taken ?Type linaclotide 145 mcg capsule 145 mcg PO .qd PRN constipation 09/30/24 Unknown History (Linzess) propranolol 20 mg tablet 20 mg PO .QD 09/30/24 Unknown History escitalopram oxalate 20 mg tablet 30 mg (1.5 x 20 mg) PO DAILY 30 01/06/25 Unknown Rx days #45 tabs clonazepam 0.5 mg tablet 0.5 mg PO DAILY PRN anxiety #30 02/15/25 Unknown Rx tabs famotidine 40 mg tablet (Pepcid) 40 mg PO QHS #90 tabs 02/16/25 Unknown Rx ondansetron 4 mg disintegrating 4 mg PO Q8H PRN PRN Nausea #30 tabs 02/16/25 Unknown Rx tablet pantoprazole 40 mg tablet,delayed 40 mg PO QDAY #90 tabs 02/16/25 Unknown Rx release drospirenone 3 mg-ethinyl 1 tab PO QDAY #84 tabs 03/31/25 Unknown Rx estradiol 0.02 mg tablet (Jaimie (28)) dextroamphetamine-amphetamine 5 mg 10 mg PO .qd 04/07/25 Unknown History tablet Allergy/AdvReac Type Severity Reaction Status Date / Time cyclobenzaprine (From Allergy Hives Verified 04/07/25 08:25 Flexeril) pineapple Allergy Hives Verified 04/07/25 08:25 Sulfa (Sulfonamide Allergy Hives Verified 04/07/25 08:25 Antibiotics) sulfamethoxazole (From Allergy Hives Verified 04/07/25 08:25 Bactrim) trimethoprim (From Bactrim) Allergy Hives Verified 04/07/25 08:25 amoxicillin (From Augmentin) AdvReac Diarrhea Verified 04/07/25 08:25 clavulanic acid (From AdvReac Diarrhea Verified 04/07/25 08:25 Augmentin) Family History Father Afib Other Breast cancer Hypertension Thyroid disorder Surgical History (Updated 04/07/25 @ 12:37 by Jocelyne Browne) Hx of colonoscopy History of esophagogastroduodenoscopy (EGD) Social History Smoking Status: Never smoker alcohol intake: current alcohol intake frequency: a few times a week Alcohol type: wine substance use type: does not use what type of physical activity do you participate in: none Audit: Pertinent Findings Pertinent Findings Additional pertinent findings: Holter monitor. 11/08/2022. Baseline heart rate was normal sinus rhythm. 3 PSVC's. No runs. No atrial fibrillation. Patient kept a diary with multiple symptoms of feeling shortness of breath or out of breath, which did not correlate with the scan. She did note symptom of feeling rapid heart rate which did correlate with a heart rate of 90-103. Recommendation Anesthesia Recommendation Anesthesia recommendation: OPTIMIZED for anesthesia
[2025-04-08] VITALS (8 sets, daily range): BP systolic 100–110; BP diastolic 61–74; PULSE 61–73; RESP 16–18; TEMP 36.2–37; O2SAT 99–100; BMI 24.0
--- OUTSIDE RECORDS SUMMARY | 2025-04-08 05:40 | XMS RPT_ITS | CCD ---
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 Micky Gamino Primary Care Provider Dr. Micky Gamino Referring Provider Dr. Saloni Roberts Attending Provider [phone] Dr. José nAtonio Feliciano Referring Provider Dr. José Antonio Feliciano Emergency Provider [phone] DAY Dotson Attending Provider DANILO Wadsworth Attending Provider Dr. Micky Gamino Primary Care Provider Dr. Micky Gamino Referring Provider Eligio ESTATE AND TRUST TAX PRINCIPAL, ESTATE AND TRUST TAX PRINCIPAL-C Rosana Castanon Attending Provider Micky Gamino MD Primary Care Provider Dr. Micky Gamino Primary Care Provider Dr. Micky Gamino Referring Provider Eligio ESTATE AND TRUST TAX PRINCIPAL, ESTATE AND TRUST TAX PRINCIPAL-C Rosana Castanon Attending Provider [phone] JESUS Newberry Attending Provider Dr. Samantha Gutierrez Attending Provider DANILO Wyman Attending Provider [phone] Micky Gamino Primary Care Provider Dr. Micky Gamino Referring Provider [phone] MICKY GAMINO Primary Care Unavailable MICKY GAMINO Referring Unavailable HANNY, MICKY Mcbride Primary Care Unavailable MICKY GAMINO Attending Unavailable HANNY, MICKY Mcbride Primary Care Unavailable MICKY GAMINO Referring Unavailable HANNY, MICKY Mcbride Primary Care Unavailable MICKY GAMINO Attending Unavailable Dr. Micky Gamino Primary Care Provider Dr. Micky Gamino Referring Provider [phone] Samantha Gutierrez Attending Provider [phone] DANILO Wyman Attending Provider Hanny LOYA, Micky Mcbride Primary Care Provider MICKY GAMINO Primary Care Unavailable EVER MAGANA Attending Unavailable Kevin Ang NP Attending Unavailable [facility], [facility] Referring Unavailable [facility], [facility] Primary Care Unavailable Santi Jensen Attending Unavailable [facility], [facility] Primary Care Unavailable Lo Couch Attending Unavailabl e Marcos VSC, Gini Primary Care Unavailable [facility] Referring Unavailable Ileana Hess Referring Unavailable Ileana Hess Attending Unavailable Marcos VSC, Gini Primary Care Unavailable Marcos VSC, Gini Referring Unavailable Lo Goode Attending Unavailable Marcos VSC, Gini Primary Care Unavailable Lo Goode Attending Unavailable Marcos VSC, Gini Primary Care Unavailable Urssel Lo Referring Unavailable RusselLo kraft Attending Unavailable Marcos VSC, Gini Primary Care Unavailable Russel Lo Referring Unavailable Marcos VSC, Gini Referring Unavailable Colt Jackson Attending Unavailable Marcos VSC, Gini Primary Care Unavailable Samantha Gutierrez Referring Unavailable Samantha Gutierrez Attending Unavailable [facility], [facility] Primary Care Unavailable Marcos VSC, Gini Attending Unavailable Marcos VSC, Gini Primary Care Unavailable Santi Jensen Attending Unavailable Marcos VSC, Gini Primary Care Unavailable Marcos VSC, Gini Referring Unavailable Lo Goode Attending Unavailable Marcos VSC, Gini Primary Care Unavailable Marcos VSC, Gini Referring Unavailable Ileana Hess Attending Unavailable Marcos VS, Gini Primary Care Unavailable Marcos VS, Gini Primary Care Unavailable Santi Jensen Attending Unavailable Marcos VS, Gini Primary Care Unavailable Marcos VS, Gini Referring Unavailable FriendColt Attending Unavailable Friend, Colt Consulting Unavailable Marcos VS, Gini Primary Care Unavailable Santi Jensen Attending Unavailable Marcos VS, Gini Primary Care Unavailable Santi Jensen Attending Unavailable Lo Goode Referring Unavailable Marcos VS, Gini Primary Care Unavailable Lo Goode Attending Unavailable Monserrat Baeza Attending Unavailable Marcos VS, Gini Primary Care Unavailable Lo Goode Referring Unavailable Marcos VS, Gini Primary Care Unavailable Lo Goode [facility] Referring Unavailable FriendColt Attending Un[facility] Unavailable Marcos [facility], Gini Referring Unavailable Marcos [facility], Gini Primary Care Unavailable Lo Goode Attending Unavailable Allergies Allergy Classification Reported Allergen(s) Allergy Type Date of Onset Reaction(s) Facility (4 sources) amoxicillin / clavulanate Drug Allergy diarrhea [facility] Now Clinic Work Phone: (6 sources) Amoxicillin Drug Allergy 2 Diarrhea [facility] (6 sources) Clavulanate Drug Allergy 2 Diarrhea [facility] (13 sources) cyclobenzaprine; Translations: [CYCLOBENZAPRINE] Drug Allergy 0 [facility] (13 sources) Sulfamethoxazole; Translations: [SULFAMETHOXAZOLE] Drug Allergy 0 [facility] (6 sources) Trimethoprim Drug Allergy 2 [facility] (7 sources) Amoxicillin / Clavulanate; Translations: [AMOXICILLIN-POT CLAVULANATE] Drug Allergy 8 Diarrhea [facility] (1 source) Amoxicillin Drug Allergy 5 [facility] (1 source) Clavulanate Drug Allergy 5 [facility] (1 source) cyclobenzaprine Drug Allergy 5 [facility] (1 source) Sulfamethoxazole Drug Allergy 5 [facility] (1 source) Sulfonamides (Antibiotic) Drug allergy (disorder) 5 [facility] (1 source) Trimethoprim Drug Allergy 5 [facility] (1 source) pineapple Drug allergy (disorder) 5 [facility] Medications Current Medications Medication Drug Class(es) Dates Sig (Normalized) Sig (Original) 24 hr buPROPion hydrochloride 150 mg extended release oral tablet (7 sources) Aminoketone Start: 08-22-2022 take 1 tablet by mouth once daily in the morning Bupropion Hcl (Wellbutrin Xl) 150 mg tablet extended release 24 hr Active 150 MG PO EVERY MORNING August 22, 2022 1:00am Start: 11-16-2019 buPROPion XL ( WELLBUTRIN XL) 150 mg 24 hr tablet 150 tablets. 11/16/2019 Active Comment on above: 150 tablets. Esomeprazole (5 sources) Proton Pump Inhibitor esomeprazo le magnesium (NEXIUM 24HR ORAL) Take by mouth once daily. Active esomeprazole mag nesium (NEXIUM 24HR ORAL) Take by mouth once daily. 0 Active Comment on above: Take by mouth once d aily. predniSONE 20 mg oral tablet (1 source) Start: 07-12-2022 End: 07-15-2022 take 2 tablets by mouth once daily predniSONE (DELTASONE) 20 mg tablet Take 2 tablets by mouth once daily for 3 days. 6 tablet 0 07/12/2022 07/15/2022 Active Comment on above: Take 2 tablets by [facility] once daily for 3 days. sertraline 100 mg oral tablet (20 sources) Serotonin Reuptake Inhibitor Start: 08-17-2019 take 100 mg by mouth once daily Sertraline Active 100 MG PO DAILY August 17, 2019 1:00am Start: 08-17-2019 take 50 mg by mouth once daily Sertraline Active 50 MG PO DAILY August 17, 2019 1:00am Start: 09-23-2016 ZOLOFT TABS as directed SERTRALINE HCL TABS [id number] Laure Whelan LPN End: 10-16-2022 sertraline (ZOLOFT) 100 mg t ablet Take 1.5 mg by mouth. 150 mg 0 10/16/2022 Discontinued Comment on above: Take 1.5 mg by mouth . 150 mg tiZANidine 2 mg oral capsule (1 source) Central alpha-2 Adrenergic Agonist Start: 09-20-2022 take 1 capsule by mouth every eight hours Tizanidine (Zanaflex) 2 mg capsule Active 2 MG PO Q8H September 20, 2022 1:00am Completed/Discontinued Medications Medication Drug Class(es) Dates Sig (Normalized) Sig (Original) [id number] 200 actuat albuterol 0.09 mg/actuat metered dose inhaler (4 sources) beta2-Adrenergic Agonist Start: 07-09-2022 End: 10-16-2022 take 2 puff(s) by inhalation every four hours as needed for wheezing albuterol HFA (PROVENTIL HFA, VENTOLIN HFA) 90 mcg/actuation inhaler Inhale 2 Puffs as instructed every 4 hours as needed for wheezing/shortness of breath. 1 Each 0 07/09/2022 10/16/2022 Discontinued Comment on above: Inhale 2 Puffs as in structed every 4 hours as needed for wheezing/shortness of breath. amoxicillin 500 mg oral capsule (14 sources) Penicillin-class Antibacterial Start: 01-09-2020 End: 02-07-2020 take 500 mg by mouth twice daily Amoxicillin Discontinued 500 MG PO TWICE A DAY January 09, 2020 12:00am February 07, 2020 9:27am Start: 08-03-2018 End: 08-13-2018 take 500 mg by mouth twice daily Amoxicillin Discontinued 500 MG PO TWICE A DAY 30 05August 03, 2018 1:00am August 13, 2018 1:10am Start: 06-10-2017 End: 06-20-2017 AMOXICILLIN 500 MG TABS Take two tab every 12 hours AMOXICILLIN [id number] Dane CARRASCO azithromycin 250 mg oral tablet (20 sources) Macrolide Antimicrobial Start: 12-13-2021 End: 03-22-2022 Azithromycin Discontinued 250 MG PO daily December 13, 2021 12:00am March 22, 2022 4:08pm 2 tablets today, then 1 tablet daily on days 2 through 5 Start: 09-28-2018 End: 12-22-2018 Azithromycin Discontinued 0 PO .COMPLEX 6 September 28, 2018 1:00am December 22, 2018 9:56am take 500 mg today (day 1), then 250 mg for 4 days (days 2-5) PO Start: 10-18-2016 End: 10-23-2016 ZITHROMAX Z-JAMES 250 MG TABS per package instructions AZITHROMYCIN [id number] Dane CARRASCO Start: 09-23-2016 ZITHROMAX Z-PA K 250 MG TABS per package instructions AZITHROMYCIN [id number] Santi CARRASCO clindamycin 150 mg oral capsule (6 sources) Lincosamide Antibacterial Start: 03-05-2019 End: 06-22-2019 take 300 mg by mouth three times daily Clindamycin Hcl Discontinued 300 MG PO THREE TIMES A DAY 60 March 05, 2019 12:00am June 22, 2019 11:04am clomiPRAMINE hydrochloride 50 mg oral capsule (1 source) Tricyclic Antidepressant Start: 09-26-2018 End: 10-16-2022 clomiPRAMINE (ANAFRANIL) 50 mg capsule 125 mg. 0 09/26/2018 10/16/2022 Discontinued Comment on above: 125 mg. clonazePAM 0.5 mg oral tablet (17 sources) Benzodiazepine Start: 08-17-2019 End: 05-31-2022 take 0.5 mg by mouth once daily as needed Clonazepam Discontinued 0.5 MG PO DAILY NEEDED August 17, 2019 1:00am May 31, 2022 9:53am Start: 09-26-2018 End: 06-22-2019 Clonazepam Discontinued 0.5 MG PO NEEDED September 26, 2018 1:00am June 22, 2019 11:04am take 1 tablet by rios every twelve hours as needed clonazePAM (KLONOPIN) 0.5 mg tablet Take 0.5 mg by mouth twice daily as needed. can take 1-2 tablets Active Comment on above: Take 0.5 mg by mouth twice daily as needed. can take 1-2 tablets dexmethylphenidate hydrochloride 10 mg oral tablet (8 sources) Central Nervous System Stimulant Start: 015 End: 017 FOCALIN 10 MG TABS twice daily DEXMETHYLPHENIDATE HCL [id number] Laure Wehlan LPN doxycycline hyclate 100 mg oral capsule (6 sources) Tetracycline-cla ss Drug Start: End: take 100 mg by mouth twice daily Doxycycline Hyclate Discontinued 100 MG PO TWICE A DAY 30 05February 07, 2020 12:00am February 17, 2020 12:02am 168 hr ethinyl estradiol 0.30121 mg/hr / norelgestromin 0.90078 mg/hr transdermal system (3 sources) Progestin, Estrogen Start: XULANE 150-35 mcg/24 hr patch Start: 08-22-2022 Norelgestromin -Ethin.Estradiol (Xulane) 150-35 mcg/24 hr patch weekly Active 1 PATCH TD Q7D August 22, 2022 1:00am Etonogestrel (Nexplanon) 68 mg implant (4 sources) Start: 06-07-2022 End: 08-22-2022 Etonogestrel (Nexplanon) 68 mg implant Discontinued 1 IMPLANT subdermal ONCE June 07, 2022 12:00am August 22, 2022 3:21pm as a single dose Start: 06-07-2022 End: 08-22-2022 Etonogestrel (Nexplanon) 68 mg implant Discontinued 1 IMPLANT subdermal ONCE June 06, 2022 11:00pm August 22, 2022 2:21pm as a single dose Start: 06-07-2022 Etonogestrel ( Nexplanon) 68 mg implant Active 1 IMPLANT subdermal ONCE June 06, 2022 11:00pm as a single dose 60 actuat fluticasone propionate 0.1 mg/actuat dry powder inhaler (8 sources) Corticosteroid Start: 05-24-2015 End: 09-23-2016 FLOVENT DISKUS 100 MCG/BLIST AEPB daily FLUTICASONE PROPIONATE (INHAL) [id number] Chalino Fuentes 24 hr guanFACINE 2 mg extended release oral tablet (13 sources) Central alpha-2 Adrenergic Agonist Start: 06-22-2019 End: 08-22-2022 take 1 tablet by mouth once daily Guanfacine (Intuniv Er) 2 mg tablet extended release 24 hr Discontinued 4 MG PO DAILY June 22, 2019 1:00am August 22, 2022 3:21pm Start: 09-26-2018 End: 06-22-2019 take 2 mg by mouth once daily Guanfacine Discontinued 2 MG PO DAILY September 26, 2018 1:00am June 22, 2019 11:04am End: 07-09-2022 take 1 tablet by mouth once daily guanFACINE (INTUNIV) 1 mg ER 24 hr tablet(s) Take 2 mg by mouth once daily. 0 07/09/2022 Discontinued Comment on above: Take 2 mg by mouth o nce daily. levalbuterol 0.103 mg/ml inhalant solution (8 sources) beta2-Adrenergic Agonist Start : 05-24 End: 09-23 XOPENEX 0.31 MG/3ML NEBU as needed LEVALBUTEROL HCL [id number] Laure Whelan [employer] meclizine hydrochloride 12.5 mg oral tablet (7 sources) Antiemetic Start : 05-23 End: 10-16 take 12.5 mg by mouth three times daily Meclizine Discontinued 12.5 MG PO THREE TIMES A DAY May 23, 2021 12:00am August 22, 2022 3:21pm Comment on above: Take 12.5 mg by mout h. methylPREDNISolone 4 mg oral tablet (1 source) Corticosteroid Start : 09-20 End: 09-26 take 1 tablet by mouth once Methylprednisolone (Medrol (James)) 4 mg tablets,dose pack Discontinued 4 MG PO per package directions 29 01September 20, 2022 1:00am September 26, 2022 1:04am nitrofurantoin, macrocrystals 25 mg / nitrofurantoin, monohydrate 75 mg oral capsule (11 sources) Nitrofuran Antibacterial Start : 04-30 End: 06-07 take 1 capsule by mouth twice daily at mealtime Nitrofurantoin Monohyd/M-Cryst (Macrobid) 100 mg capsule Discontinued 100 MG PO TWICE A DAY April 30, 2022 12:00am June 07, 2022 12:02pm must administer with a meal/food Start: 10-04-2020 End: 10-09-2020 take 1 capsule by mouth every twelve hours at mealtime Nitrofurantoin Monohyd/M-Cryst (Macrobid) 100 mg capsule Discontinued 100 MG PO Q12H 10 October 04, 2020 1:00am October 09, 2020 1:03am must administer with a meal/food ondansetron 4 mg disintegrating oral tablet (6 sources) Serotonin-3 Receptor Antagonist Start: 10-16-2021 End: 06-07-2022 take 4 mg by mouth every eight hours Ondansetron Discontinued 4 MG PO Q8H October 16, 2021 1:00am June 07, 2022 12:02pm oseltamivir 75 mg oral capsule (6 sources) Neuraminidase Inhibitor Start: 10-13-2019 End: 10-18-2019 take 75 mg by mouth twice daily Oseltamivir Discontinued 75 MG PO TWICE A DAY 05 15October 13, 2019 1:00am October 18, 2019 12:09am sulfamethoxazole 800 mg / trimethoprim 160 mg oral tablet (6 sources) Dihydrofolate Reductase Inhibitor Antibacterial, Sulfonamide Antimicrobial Start: 12-22-2018 End: 12-29-2018 take 1 tablet by mouth every twelve hours Sulfamethoxazole- Trimethoprim (Bactrim Ds) 800-160 mg tablet Discontinued 1 TABLET PO Q12H 14 December 22, 2018 12:00am December 29, 2018 12:06am traZODone hydrochloride 50 mg oral tablet (4 sources) Serotonin Reuptake Inhibitor Start: 05-24-2015 TRAZODONE HCL 50 MG TABS every night TRAZODONE HCL [id number] Chalino Fuentes Problems Active Problems Problem Classification Problem Date Documented Da te Episodic/Chronic Acute bronchitis (6 sources) Acute bronchitis; Translations: [Acute bronchitis, unspecified] 09-28-2018 Episodic Allergic reactions (6 sources) Allergic disorder of skin; Translations: [Allergic contact dermatitis, unspecified cause] 08-17-2019 Episodic Anxiety disorders (6 sources) Anxiety neurosis ; Translations: [Generalized anxiety disorder] Onset: 8 06-17-2018 Chronic Attention-deficit, conduct, and disruptive behavior disorders (5 sources) Attention deficit hyperactivity disorder; Translations: [Attention-deficit hyperactivity disorder, unspecified type] Onset: 2 11-28-2011 Chronic Attention-deficit, conduct, and disruptive behavior disorders (1 source) Attention-deficit hyperactivity disorder, unspecified type; Translations: [Attention-deficit hyperactivity disorder, unspecified type] Onset: 5 Chronic Cardiac dysrhythmias (2 sources) Tachycardia; Translations: [Tachycardia, unspecified] Onset: 3 Episodic Diabetes mellitus without complication (1 source) Other abnormal glucose; Translations: [Other abnormal glucose] Onset: 5 Episodic Disorders of teeth and jaw (6 sources) Temporomandibular joint disorder; Translations: [Unspecified temporomandibular joint disorder, unspecified side] 08-17-2019 Episodic Esophageal disorders (1 source) Gastro-esophageal reflux disease without esophagitis; Translations: [Gastro-esophageal reflux disease without esophagitis] Onset: 4 Chronic Headache; including migraine (1 source) Headache; including migraine; Translations: [Acute nonintractable headache, unspecified headache type] Onset: 5 Immunizations and screening for infectious disease (20 sources) Patient encounter status; Translations: [Encounter for screening for COVID-19] Episodic Influenza (13 sources) Influenza; Translations: [Influenza due to unidentified influenza virus with other respiratory manifestations] Episodic Intracranial injury (1 source) Concussion without loss of consciousness, initial encounter; Translations: [Concussion without loss of consciousness, initial encounter] Onset: 5 Episodic Lymphadenitis (2 sources) Finding of lymph node; Translations: [Enlarged lymph nodes, unspecified] Onset: 3 Episodic Malaise and fatigue (8 sources) Fatigue; Translations: [Other fatigue] Episodic Nausea and vomiting (10 sources) Nausea and vomiting; Translations: [Nausea with vomiting, unspecified] Onset: 5 Episodic Other bone disease and musculoskeletal deformities (20 sources) Segmental and somatic dysfunction; Translations: [Segmental and somatic dysfunction of cervical region] 08-17-2019 Episodic Other bone disease and musculoskeletal deformities (1 source) Segmental and somatic dysfunction of cervical region; Translations: [Nonallopathic lesions, cervical region] Episodic Other bone disease and musculoskeletal deformities (1 source) Segmental and somatic dysfunction of lumbar region; Translations: [Nonallopathic lesions, lumbar region] Episodic Other bone disease and musculoskeletal deformities (1 source) Segmental and somatic dysfunction of pelvic region; Translations: [Nonallopathic lesions, pelvic region] Episodic Other bone disease and musculoskeletal deformities (1 source) Segmental and somatic dysfunction of thoracic region; Translations: [Nonallopathic lesions, thoracic region] Episodic Other eye disorders (6 sources) Dilated pupil; 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-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 Other eye disorders (6 sources) Bilateral fixed dilatation of pupil; 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] 08-17-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 Other gastrointestinal disorders (1 source) Irritable bowel syndrome without diarrhea; Translations: [Irritable bowel syndrome, unspecified] Onset: 5 Chronic Other gastrointestinal disorders (1 source) Chronic idiopathic constipation; Translations: [Chronic idiopathic constipation] Onset: 5 Chronic Other injuries and conditions due to external causes (6 sources) Closed injury of head; Translations: [Unspecified injury of head, initial encounter] 08-17-2019 Episodic Other lower respiratory disease (1 source) Cough; Translations: [Acute cough] Episodic Other lower respiratory disease (1 source) Cough; Translations: [Acute cough] 07-09-2022 Episodic Other upper respiratory infections (20 sources) Acute sinusitis; Translations: [Pharyngitis] Onset: 7 10-18-2016 Episodic Otitis media and related conditions (11 sources) Otitis media; Translations: [Acute right otitis media] Onset: 7 09-23-2016 Episodic Residual codes; unclassified (5 sources) Generalized aches and pains; Translations: [Pain, unspecified] 03-22-2022 Episodic Residual codes; unclassified (3 sources) Pain, unspecified; Translations: [Generalized pain] Episodic Spondylosis; intervertebral disc disorders; other back problems (9 sources) Acute thoracic back pain; Translations: [Pain in thoracic spine] Episodic Sprains and strains (2 sources) Strain of neck muscle; Translations: [Strain of muscle, fascia and tendon at neck level, initial encounter] 09-21-2022 Episodic Urinary tract infections (5 sources) Urinary tract infectious disease; Translations: [Urinary tract infection, site not specified] 05-08-2022 Episodic Past or Other Problems Problem Classification Problem Date Documented Da te Episodic/Chronic Abdominal pain (20 sources) Abdominal pain; Translations: [Unspecified abdominal pain] Onset: 06-05-2017 06-05-2017 Episodic Contraceptive and procreative management (14 sources) Encounter for other general counseling and advice on contraception; Translations: [Other general counseling and advice on contraceptive management] Onset: 06-22-2024 Episodic Fracture of lower limb (4 sources) Salter-Reyes Type I physeal fracture of lower end of right tibia, initial encounter for closed fracture; Translations: [Salter-Reyes Type I physeal fracture of lower end of right tibia, initial encounter for closed fracture] Onset: 05-24-2015 05-28-2015 Episodic Impulse control disorders, NEC (1 source) Trichotillomania; 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: 04-01-2018 04-01-2018 Chronic Other connective tissue disease (1 source) Pain in limb; Translations: [Pain in unspecified limb] Onset: 04-13-2008 Resolved: 04-02-2021 04-02-2021 Episodic Other ear and sense organ disorders (4 sources) Otalgia, unspecified ear; Translations: [Otalgia, unspecified ear] Onset: 06-05-2017 06-05-2017 Episodic Other gastrointestinal disorders (9 sources) Constipation; Translations: [Constipation, unspecified] Onset: 06-17-2018 06-17-2018 Episodic Other gastrointestinal disorders (5 sources) Constipation, unspecified; Translations: [Constipation, unspecified] Onset: 10-01-2024 Episodic Other gastrointestinal disorders (2 sources) Dysphagia, unspecified; Translations: [Dysphagia, unspecified] Onset: 07-15-2024 Episodic Other gastrointestinal disorders (2 sources) Diarrhea, unspecified; Translations: [Diarrhea, unspecified] Onset: 07-15-2024 Episodic Other non-traumatic joint disorders (4 sources) Ankle pain; Translations: [Pain in right ankle and joints of right foot] Onset: 05-24-2015 05-24-2015 Episodic Other upper respiratory disease (4 sources) Pain in throat; Translations: [Acute pharyngitis, unspecified] Onset: 09-23-2016 09-23-2016 Episodic Results Test Name Value Interpretation Reference Range Facility [facility] Office Visit Reporton 03-31-2025 [facility] Office Visit Report [facility]'[address], [address] [place] [address] OFFICE VISIT Date of Service: 03/31/25 MR#: [id number] Acct: [id number] Name: NONA ANTONIO Rep #: [id number] [birth year] : 2005 Provider: JEANNINE Huffman Age/Sex: 20/F Location: [facility] Status: Signed Intake Vital Signs 11/04/24 07:03 01/06/25 07:02 03/31/25 08:12 03/31/25 08:12 Height 5 ft 2 in 5 ft 2 in 5 ft 2 in 5 ft 2 in Weight: 129 lb 6 oz BMI 23.6 BP 101/73 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) Chief Complaint: Annual Office Automation Clerk Required: No Is patient in pain?: No Allergies cyclobenzaprine (From Flexeril) Allergy (Verified 03/31/25 08:11) Hives pineapple Allergy (Verified 03/31/25 08:11) Hives Sulfa (Sulfonamide Antibiotics) Allergy (Verified 03/31/25 08:11) Hives sulfamethoxazole (From Bactrim) Allergy (Verified 03/31/25 08:11) Hives trimethoprim (From Bactrim) Allergy (Verified 03/31/25 08:11) Hives amoxicillin (From Augmentin) Adverse Reaction (Verified 03/31/25 08:11) Diarrhea clavulanic acid (From Augmentin) Adverse Reaction (Verified 03/31/25 08:11) Diarrhea Medications ???Medication ???Instructions ???Recorded ???Confirmed ???Type linaclotide 145 mcg capsule 145 mcg PO .COMPLEX PRN 09/30/24 0 03/31/25 History (Linzess) propranolol 20 mg tablet 20 mg PO .QD 09/30/24 03/31/25 His tory escitalopram oxalate 20 mg tablet 30 mg (1.5 x 20 mg) PO DAILY 30 0 01/06/25 03/31/25 Rx days #45 tabs clonazepam 0.5 mg tablet 0.5 mg PO DAILY PRN anxiety #30 03/31/25 Rx tabs famotidine 40 mg tablet (Pepcid) 40 mg PO QHS #90 tabs 02/16/25 Rx ondansetron 4 mg disintegrating 4 mg PO Q8H PRN PRN Nausea #30 tab s 02/16/25 03/31/25 Rx tablet pantoprazole 40 mg tablet,delayed 40 mg PO QDAY #90 tabs 02/16/25 0 03/31/25 Rx release drospirenone 3 mg-ethinyl 1 tab PO QDAY #84 tabs 03/31/25 Rx estradiol 0.02 mg tablet (Jaimie (28)) Is last menstrual period known: No Post menopausal: No Patient : No : No Control Method: OCP [facility] Medical History Wears glasses ADHD Depression Anxiety Migraine headache Gastric reflux Non-smoker Asthma History of Holter monitoring Hypertension Sprain of left foot Left ankle sprain ADHD Generalized anxiety disorder Depression BPPV (benign paroxysmal positional vertigo) Angioedema Earache, left Contraceptive management Constipation Sinusitis, acute, maxillary Acute otitis media, right Abdominal pain URI (upper respiratory infection) Encounter for screening for COVID-19 GERD (gastroesophageal reflux disease) Anxiety Asthma Environmental allergies Surgical History History of esophagogastroduodenoscopy (EGD) Family History Father Afib Other Breast cancer Hypertension Thyroid disorder Social History Smoking Status: Never smoker alcohol intake: current alcohol intake frequency: a few times a week Alcohol type: wine substance use type: does not use what type of physical activity do you participate in: none HPI Encounter for routine gynecological examination Details: NONA ANTONIO is a 20 year old who presents for annual exam. She reports she has noted bursts of emotions--missed her most recent virocytsch appt with Dr. Jensen. Patient reports she is unsure when her last period was-- last month sometime. Reports she is taking her OCP compliantly and would like a refill. Last PAP: 2023; normal History of abnormal PAP: none Last mammogram: none History of abnormal mammogram: none Colon cancer screening: Colonoscopy--2 months ago. Other preventative health care screenings: Dr. Rodríguez--Lynda Us Female Reproductive History Questions: metrorrhagia: No, sexually active: Yes, dyspareunia: No and PCB: No ROS Const Constitutional: Reports fatigue; Denies chills, fever(s), headache(s) or weight loss Eyes Eyes: Denies change in vision ENT ENT: Denies dizziness Cardio Card: Denies chest pain at rest or palpitations Resp Resp: Denies cough or dyspnea GI GI: Denies abdominal pain, constipation or nausea : Denies difficulty voiding, dysuria, hematuria, nipple discharge, pelvic pain, prolapse symptoms, urinary incontinence, vaginal discharge, vaginal dryness, vaginal odor or vaginal pruritus Skin Skin/Breast: Denies alopecia, rash, breast mass, breast pain, breast skin changes or nipple discharge Neuro Neuro: Denies dizziness Psych Psych: Reports other (tearful last night. ); Denies anxiety, depression, homicidal ideati (more content not included)... Normal [facility] Abdomen Limitedon 03-28-2025 Abdomen [address] [facility] Imaging Services [address] [place] [id number] Abdomen Limited MR#: [id number] Acct: [id number] Name: NONA ANTONIO Rep #: [id number] : 2005 F 20 From: Ellis altman MD PCP: Gini Rodríguez DO Status: REG CLI Study: Abdomen Limited Date of Exam: 03/28/25 Exam# [id number] Ordering Dr: Lo Goode PROCEDURE: ABDOMEN LIMITED 03/28/2025 REASON FOR EXAM: ABD PAIN, NAUSEA COMPARISON: None FINDINGS: Liver: Grossly normal size and echotexture. Gallbladder: No stones, sludge, wall thickening or tenderness. Common bile duct: Normal measuring 4 mm . Pancreas: Normal Other: Visualized portions of the right kidney are unremarkable. No right upper quadrant ascites. US/Abdomen Limited IMPRESSION: NORMAL RIGHT UPPER QUADRANT ULTRASOUND. Reading Location: [id number] CC: [employer]INC[employer]AL-Reed Goode; Gini Rodríguez DO Transmission Design Engineer: Signed Normal [facility] Hepatobilliary Img w/Pharm I nton 03-28-2025 Hepatobilliary Img w/Pharm Int [facility] Imaging Services [address] [place], [place] [address] Hepatobilliary Img w/Pharm Int MR#: [id number] Acct: [id number] Name: NONA ANTONIO Rep #: [id number] : 2005 F 20 From: Anil Baum PCP: Gini Rodríguez DO Status: REG CLI Study: Hepatobilliary Img w/Pharm Int Date of Exam: 0 03/28/25 Exam# [id number] Ordering Dr: Lo Goode PROCEDURE: HEPATOBILLIARY IMG W/PHARM INT 03/28/2025 REASON FOR EXAM: NAUSEA, ABD PAIN TECHNIQUE: Intravenous Choletec with planar imaging of the abdomen. RADIOPHARMACEUTICAL: Intravenous administration of 5.6 mCi technetium 99 M mebrofenin. Following this, for gallbladder ejection fraction, intravenous administration of 1.2 mcg cholecystokinin was also administered. COMPARISON: Ultrasound examination 03/28/2025 FINDINGS: There is satisfactory hepatic uptake and excretion.. Normal gallbladder visualization with the gallbladder identified by 10 minutes. Small bowel activity is not seen on the initial 60 minutes, presumably due to preferential filling of the gallbladder. Small bowel activity is seen by 10 minutes following cholecystokinin administration. Following cholecystokinin administration, a normal gallbladder ejection fraction of 57% is seen at 30 minutes. NM/Hepatobilliary Img w/Pharm Int IMPRESSION: 1. Negative hepatobiliary scan. 2. Normal gallbladder ejection fraction of 57% at 30 minutes. Reading Location: [place] [address] CC: JEANNIEN Goode; Gini Rodríguez DO Transmission Design Engineer: Signed Normal [facility] HLA B27on 02-08-2025 HLA B27 Negative Normal . [facility] Comment on above: Result Comment: HLA- B*27 Negative B27 allele interpretation for all loci based on IMGT/HLA database version 3.58 This test was developed and its performance characteristics determined by [employer]. It has not been cleared or approved by the Food and Drug Administration. The FDA has determined that such clearance or approval is not necessary. [facility] CLIA ID Number [id number] HISTOCOMPATIBILITY SECTION DIRECTOR: Annemarie Moon, PhD, F([facility]) This test was performed using Polymerase Chain Reaction (PCR) and Sequence Specific Oligonucleotide Probes (SSOP) technique. Sequence Based Typing (SBT) may be used as a supplemental method when necessary. If you have questions, please call HLA customer service at or email at [email or web address]. Performed By: #### L 101.9900, L100.0100, L501.9985, L500.4050, L501.5200, L501.6710, L501.9520, L503.0106, L503.6550, L506.0400, L506.1001, L509.6001, L3100.5475, L3300.3500, L3410.1400 ####[facility] [address] [facility] [place], [address] Insulin Levelon 02-08-2025 INSULIN,FASTING 23.6 uIU/mL Normal 2.6-24.9 [facility] Comment on above: Result Comment: Perf ormed at: [address] [id number] Core Setter: Kayleigh Beebe PhD, Phone: [phone] Performed at: [address] [id number] Core Setter: Chris Sotelo PhD, Phone: [phone] Performed By: #### L 101.9900, L100.0100, L501.9985, L500.4050, L501.5200, L501.6710, L501.9520, L503.0106, L503.6550, L506.0400, L506.1001, L509.6001, L3100.5475, L3300.3500, L3410.1400 ####[facility] [address] [facility], [address] ANTINUCLEAR ANTIBODIES DIREC Ton 02-02-2025 INOCENTE,DIRECT Negative Normal Negative [facility] Comment on above: Result Comment: Perf ormed at: - [facility] [address] [id number] Core Setter: Chris Sotelo PhD, Phone: [phone] Performed By: #### L 101.9900, L100.0100, L501.9985, L500.4050, L501.5200, L501.6710, L501.9520, L503.0106, L503.6550, L506.0400, L506.1001, L509.6001, L3100.5475, L3300.3500, L3410.1400 ####[facility] [address] [facility] [place], [address] Gastric Emptying Study - 4 H Sean 02-02-2025 Gastric Emptying Study - 4 HR [facility] Imaging Services [address] [place], [place] [address] Gastric Emptying Study - 4 HR MR#: [id number] Acct: [id number] Name: NONA ANTONIO Rep #: [id number] : 2005 F 20 From: Ellis altman MD PCP: Gini Rodríguez DO Status: REG CLI Study: Gastric Emptying Study - 4 HR Date of Exam: Exam# [id number] Ordering Dr: Lo Goode [employer]INC[employer]AL- C PROCEDURE: GASTRIC EMPTYING STUDY - 4 HR 02/02/2025 REASON FOR EXAM: NAUSEA, ABDOMINAL PAIN TECHNIQUE: The patient ingested a standard meal of 1 ache sandwich with butter and water.. There was no vomiting postprandially. Anterior and posterior planar images of the upper abdomen were obtained for 1 minute immediately following the meal at 1h, 2h and 4h if more than 10% of the activity persisted within the stomach. Regions of interest were drawn, and a geometric mean was used to calculate a qqjz-ggdsdmwa-zlwey. RADIOPHARMACEUTICAL: Sulfur colloid DOSE 1.2mCi FINDINGS: Percent activity remaining in stomach: 1 hour 100 % (normal 37-90%) 2 hours: 73 % (normal 30-60%) 4 hours: 1 % (normal 0-10%) NM/Gastric Emptying Study - 4 HR IMPRESSION: Normal delayed gastric emptying examination. Reading Location: [id number] CC: JEANNINE Goode; Gini Rodríguez DO Transmission Design Engineer: Signed Normal [facility] CBC W/Diff, Automatedon 01-10 Absolute Lymph 3.16 X10 3/uL Normal 0.83-4.51 [facility] Comment on above: Performed By: #### L 101.9900, L100.0100, L501.9985, L500.4050, L501.5200, L501.6710, L501.9520, L503.0106, L503.6550, L506.0400, L506.1001, L509.6001, L3100.5475, L3300.3500, L3410.1400 ####[facility] [address] [place], [place], [id number] Absolute Neut 5.0 X10 3/uL Normal 2.0-7.7 [facility] Comment on above: Performed By: #### L 101.9900, L100.0100, L501.9985, L500.4050, L501.5200, L501.6710, L501.9520, L503.0106, L503.6550, L506.0400, L506.1001, L509.6001, L3100.5475, L3300.3500, L3410.1400 ####[facility] [address] [place], [address] Basophils/100 WBC (Bld) 0.5 % Normal 0-1 [facility] Comment on above: Performed By: #### L 101.9900, L100.0100, L501.9985, L500.4050, L501.5200, L501.6710, L501.9520, L503.0106, L503.6550, L506.0400, L506.1001, L509.6001, L3100.5475, L3300.3500, L3410.1400 ####[facility] [address] [facility]. [place], [place], [phone](407) Eosinophils/100 WBC (Bld) 1.4 % Normal 0-5 [facility] Comment on above: Performed By: #### L 101.9900, L100.0100, L501.9985, L500.4050, L501.5200, L501.6710, L501.9520, L503.0106, L503.6550, L506.0400, L506.1001, L509.6001, L3100.5475, L3300.3500, L3410.1400 ####[facility] [address] [facility]. [place], [place], [phone] Erythrocyte distribution width (RBC) [Ratio] 14.2 % Normal 11.6-14.6 [facility] Comment on above: Performed By: #### L 101.9900, L100.0100, L501.9985, L500.4050, L501.5200, L501.6710, L501.9520, L503.0106, L503.6550, L506.0400, L506.1001, L509.6001, L3100.5475, L3300.3500, L3410.1400 ####[facility] [address] [facility]. [place], [place], [phone] Hematocrit (Bld) [Volume fraction] 36.8 % Low 37-47 [facility] Comment on above: Performed By: #### L 101.9900, L100.0100, L501.9985, L500.4050, L501.5200, L501.6710, L501.9520, L503.0106, L503.6550, L506.0400, L506.1001, L509.6001, L3100.5475, L3300.3500, L3410.1400 ####[facility] [address] [facility]. [place], [place], [phone] Hemoglobin (Bld) [Mass/Vol] 12.7 g/dL Normal 12.0-15.0 [facility] Comment on above: Performed By: #### L 101.9900, L100.0100, L501.9985, L500.4050, L501.5200, L501.6710, L501.9520, L503.0106, L503.6550, L506.0400, L506.1001, L509.6001, L3100.5475, L3300.3500, L3410.1400 ####[facility] [address] [facility] [place], [address] IG% 0.200 Normal 0.0-0.9 [facility] Comment on above: Result Comment: IG% - Immature Granulocytes (promyelocytes, myelocytes and metamyelocytes) > 1% indicates that a LEFT SHIFT is Present. Performed By: #### L 101.9900, L100.0100, L501.9985, L500.4050, L501.5200, L501.6710, L501.9520, L503.0106, L503.6550, L506.0400, L506.1001, L509.6001, L3100.5475, L3300.3500, L3410.1400 ####[facility] [address] [facility], [address] Lymphocytes/100 WBC (Bld) 35.8 % Normal 19-41 [facility] Comment on above: Performed By: #### L 101.9900, L100.0100, L501.9985, L500.4050, L501.5200, L501.6710, L501.9520, L503.0106, L503.6550, L506.0400, L506.1001, L509.6001, L3100.5475, L3300.3500, L3410.1400 ####[facility] [address] [place], [address] MCH (RBC) [Entitic mass] 28.3 pg Normal 27.0-32.0 [facility] Comment on above: Performed By: #### L 101.9900, L100.0100, L501.9985, L500.4050, L501.5200, L501.6710, L501.9520, L503.0106, L503.6550, L506.0400, L506.1001, L509.6001, L3100.5475, L3300.3500, L3410.1400 ####[facility] [address] [place], [address] MCHC (RBC) [Mass/Vol] 34.5 g/dL Normal 32-36 [facility] Comment on above: Performed By: #### L 101.9900, L100.0100, L501.9985, L500.4050, L501.5200, L501.6710, L501.9520, L503.0106, L503.6550, L506.0400, L506.1001, L509.6001, L3100.5475, L3300.3500, L3410.1400 ####[facility] [address] [place], [address] MCV (RBC) [Entitic vol] 82.1 fL Normal 81-99 [facility] Comment on above: Performed By: #### L 101.9900, L100.0100, L501.9985, L500.4050, L501.5200, L501.6710, L501.9520, L503.0106, L503.6550, L506.0400, L506.1001, L509.6001, L3100.5475, L3300.3500, L3410.1400 ####[facility] [address] [place], [address] Monocytes/100 WBC (Bld) 5.2 % Normal 0-10 [facility] Comment on above: Performed By: #### L 101.9900, L100.0100, L501.9985, L500.4050, L501.5200, L501.6710, L501.9520, L503.0106, L503.6550, L506.0400, L506.1001, L509.6001, L3100.5475, L3300.3500, L3410.1400 ####[facility] [address] [place], [place], [phone](479) Neutrophils/100 WBC (Bld) 56.9 % Normal 47-70 [facility] Comment on above: Performed By: #### L 101.9900, L100.0100, L501.9985, L500.4050, L501.5200, L501.6710, L501.9520, L503.0106, L503.6550, L506.0400, L506.1001, L509.6001, L3100.5475, L3300.3500, L3410.1400 ####[facility] [address] [place], [address] Nucleated RBC (Bld) [#/Vol] 0 10*3/uL Normal 0-5 [facility] Comment on above: Performed By: #### L 101.9900, L100.0100, L501.9985, L500.4050, L501.5200, L501.6710, L501.9520, L503.0106, L503.6550, L506.0400, L506.1001, L509.6001, L3100.5475, L3300.3500, L3410.1400 ####[facility] [address] [place], [place], [phone] Platelet mean volume (Bld) [Entitic vol] 9.5 fL Normal 6.2-12.0 [facility] Comment on above: Performed By: #### L 101.9900, L100.0100, L501.9985, L500.4050, L501.5200, L501.6710, L501.9520, L503.0106, L503.6550, L506.0400, L506.1001, L509.6001, L3100.5475, L3300.3500, L3410.1400 ####[facility] [address] [place], [place], [phone](957) Platelets (Bld) [#/Vol] 372 10*3/uL Normal 150-450 [facility] Comment on above: Performed By: #### L 101.9900, L100.0100, L501.9985, L500.4050, L501.5200, L501.6710, L501.9520, L503.0106, L503.6550, L506.0400, L506.1001, L509.6001, L3100.5475, L3300.3500, L3410.1400 ####[facility] [address] [place], [place], [phone](203) RBC (Bld) [#/Vol] 4.48 10*6/uL Normal 4.2-5.4 [facility] Comment on above: Performed By: #### L 101.9900, L100.0100, L501.9985, L500.4050, L501.5200, L501.6710, L501.9520, L503.0106, L503.6550, L506.0400, L506.1001, L509.6001, L3100.5475, L3300.3500, L3410.1400 ####[facility] [address] [place], [place], [phone](749) RDW SD 42.0 fl Normal 35.1-43.9 [facility] Comment on above: Performed By: #### L 101.9900, L100.0100, L501.9985, L500.4050, L501.5200, L501.6710, L501.9520, L503.0106, L503.6550, L506.0400, L506.1001, L509.6001, L3100.5475, L3300.3500, L3410.1400 ####[facility] [address] [place], [place], [phone] WBC (Bld) [#/Vol] 8.8 10*3/uL Normal 4.4-11.0 [facility] Comment on above: Performed By: #### L 101.9900, L100.0100, L501.9985, L500.4050, L501.5200, L501.6710, L501.9520, L503.0106, L503.6550, L506.0400, L506.1001, L509.6001, L3100.5475, L3300.3500, L3410.1400 ####[facility] [address] [place], [place], [phone] CRPon 02-01-2025 C-REACTIVE PROT 6.37 mg/L High 0.0-3.0 [facility] Comment on above: Performed By: #### L 101.9900, L100.0100, L501.9985, L500.4050, L501.5200, L501.6710, L501.9520, L503.0106, L503.6550, L506.0400, L506.1001, L509.6001, L3100.5475, L3300.3500, L3410.1400 ####[facility] [address] [place], [place], [phone] Comprehensive Metabolic Prof ilon 02-01-2025 Albumin [Mass/Vol] 4.0 g/dL Normal 3.5-5.0 [facility] Comment on above: Performed By: #### L 101.9900, L100.0100, L501.9985, L500.4050, L501.5200, L501.6710, L501.9520, L503.0106, L503.6550, L506.0400, L506.1001, L509.6001, L3100.5475, L3300.3500, L3410.1400 ####[facility] [address] [place], [place], [phone] Albumin/Globulin [Mass ratio] 1.3 {ratio} Normal 0.9-2.4 [facility] Comment on above: Performed By: #### L 101.9900, L100.0100, L501.9985, L500.4050, L501.5200, L501.6710, L501.9520, L503.0106, L503.6550, L506.0400, L506.1001, L509.6001, L3100.5475, L3300.3500, L3410.1400 ####[facility] [address] [place], [place], [phone] ALK PHOS 58 U/L Normal 35-104 [facility] Comment on above: Performed By: #### L 101.9900, L100.0100, L501.9985, L500.4050, L501.5200, L501.6710, L501.9520, L503.0106, L503.6550, L506.0400, L506.1001, L509.6001, L3100.5475, L3300.3500, L3410.1400 ####[facility] [address] [place], [place], [phone] ALT [Catalytic activity/Vol] 7 U/L Normal <=34 [facility] Comment on above: Performed By: #### L 101.9900, L100.0100, L501.9985, L500.4050, L501.5200, L501.6710, L501.9520, L503.0106, L503.6550, L506.0400, L506.1001, L509.6001, L3100.5475, L3300.3500, L3410.1400 ####[facility] [address] [place], [address] AST [Catalytic activity/Vol] 13 U/L Normal <=31 [facility] Comment on above: Performed By: #### L 101.9900, L100.0100, L501.9985, L500.4050, L501.5200, L501.6710, L501.9520, L503.0106, L503.6550, L506.0400, L506.1001, L509.6001, L3100.5475, L3300.3500, L3410.1400 ####[facility] [address] [place], [place], [phone](856) Bilirubin [Mass/Vol] 0.30 mg/dL Normal 0.00-1.30 [facility] Comment on above: Performed By: #### L 101.9900, L100.0100, L501.9985, L500.4050, L501.5200, L501.6710, L501.9520, L503.0106, L503.6550, L506.0400, L506.1001, L509.6001, L3100.5475, L3300.3500, L3410.1400 ####[facility] [address] [place], [place], [phone](101) BUN/CRE 21.4 RATIO High 10-20 [facility] Comment on above: Performed By: #### L 101.9900, L100.0100, L501.9985, L500.4050, L501.5200, L501.6710, L501.9520, L503.0106, L503.6550, L506.0400, L506.1001, L509.6001, L3100.5475, L3300.3500, L3410.1400 ####[facility] [address] [place], [address] Calcium [Mass/Vol] 9.3 mg/dL Normal 7.6-11.0 [facility] Comment on above: Performed By: #### L 101.9900, L100.0100, L501.9985, L500.4050, L501.5200, L501.6710, L501.9520, L503.0106, L503.6550, L506.0400, L506.1001, L509.6001, L3100.5475, L3300.3500, L3410.1400 ####[facility] [address] [place], [place], [phone](652) Chloride [Moles/Vol] 104 mmol/L Normal 98-108 [facility] Comment on above: Performed By: #### L 101.9900, L100.0100, L501.9985, L500.4050, L501.5200, L501.6710, L501.9520, L503.0106, L503.6550, L506.0400, L506.1001, L509.6001, L3100.5475, L3300.3500, L3410.1400 ####[facility] [address] [place], [place], [phone](531) CO2 [Moles/Vol] 20.9 mmol/L Low 21.0-32.0 [facility] Comment on above: Performed By: #### L 101.9900, L100.0100, L501.9985, L500.4050, L501.5200, L501.6710, L501.9520, L503.0106, L503.6550, L506.0400, L506.1001, L509.6001, L3100.5475, L3300.3500, L3410.1400 ####[facility] [address] [place], [place], [phone](856) Creatinine [Mass/Vol] 0.60 mg/dL Low 0.70-1.20 [facility] Comment on above: Performed By: #### L 101.9900, L100.0100, L501.9985, L500.4050, L501.5200, L501.6710, L501.9520, L503.0106, L503.6550, L506.0400, L506.1001, L509.6001, L3100.5475, L3300.3500, L3410.1400 ####[facility] [address] [place], [place], [phone] GAP 13 Normal 5-15 [facility] Comment on above: Performed By: #### L 101.9900, L100.0100, L501.9985, L500.4050, L501.5200, L501.6710, L501.9520, L503.0106, L503.6550, L506.0400, L506.1001, L509.6001, L3100.5475, L3300.3500, L3410.1400 ####[facility] [address] [place], [address] GFR/1.73 sq M.predicted among non-blacks MDRD (S/P/Bld) [Vol rate/Area] 130 mL/min/{1.73_m2} Normal >60 [facility] Comment on above: Result Comment: mL/m in/1.73m2 CKD-EPI Creatinine Equation (2020) Performed By: #### L 101.9900, L100.0100, L501.9985, L500.4050, L501.5200, L501.6710, L501.9520, L503.0106, L503.6550, L506.0400, L506.1001, L509.6001, L3100.5475, L3300.3500, L3410.1400 ####[facility] [address] [place], [address] Globulin (S) [Mass/Vol] 3.1 g/dL Normal 2.2-4.2 [facility] Comment on above: Performed By: #### L 101.9900, L100.0100, L501.9985, L500.4050, L501.5200, L501.6710, L501.9520, L503.0106, L503.6550, L506.0400, L506.1001, L509.6001, L3100.5475, L3300.3500, L3410.1400 ####[facility] [address] [place], [address] Glucose [Mass/Vol] 92 mg/dL Normal 70-99 [facility] Comment on above: Performed By: #### L 101.9900, L100.0100, L501.9985, L500.4050, L501.5200, L501.6710, L501.9520, L503.0106, L503.6550, L506.0400, L506.1001, L509.6001, L3100.5475, L3300.3500, L3410.1400 ####[facility] [address] [facility], [address] Potassium [Moles/Vol] 3.9 mmol/L Normal 3.3-5.1 [facility] Comment on above: Performed By: #### L 101.9900, L100.0100, L501.9985, L500.4050, L501.5200, L501.6710, L501.9520, L503.0106, L503.6550, L506.0400, L506.1001, L509.6001, L3100.5475, L3300.3500, L3410.1400 ####[facility] [address] [place], [address] Sodium [Moles/Vol] 137 mmol/L Normal 133-145 [facility] Comment on above: Performed By: #### L 101.9900, L100.0100, L501.9985, L500.4050, L501.5200, L501.6710, L501.9520, L503.0106, L503.6550, L506.0400, L506.1001, L509.6001, L3100.5475, L3300.3500, L3410.1400 ####[facility] [address] [place], [place], [id number] T PROT 7.0 g/dL Normal 5.9-8.4 [facility] Comment on above: Performed By: #### L 101.9900, L100.0100, L501.9985, L500.4050, L501.5200, L501.6710, L501.9520, L503.0106, L503.6550, L506.0400, L506.1001, L509.6001, L3100.5475, L3300.3500, L3410.1400 ####[facility] [address] [place], [address] Urea nitrogen [Mass/Vol] 13 mg/dL Normal 4-19 [facility] Comment on above: Performed By: #### L 101.9900, L100.0100, L501.9985, L500.4050, L501.5200, L501.6710, L501.9520, L503.0106, L503.6550, L506.0400, L506.1001, L509.6001, L3100.5475, L3300.3500, L3410.1400 ####[facility] [address] [place], [place], [id number] Erythrocyte Sed Rateon 02-01 SED RATE 11 mm/hr Normal 0-30 [facility] [facility] Comment on above: Performed By: #### L 101.9900, L100.0100, L501.9985, L500.4050, L501.5200, L501.6710, L501.9520, L503.0106, L503.6550, L506.0400, L506.1001, L509.6001, L3100.5475, L3300.3500, L3410.1400 #### [facility] [address] [place], [place], [id number] Ferritinon 02-01-2025 Ferritin [Mass/Vol] 38 ng/mL Normal 22-378 [facility] Comment on above: Performed By: #### L 101.9900, L100.0100, L501.9985, L500.4050, L501.5200, L501.6710, L501.9520, L503.0106, L503.6550, L506.0400, L506.1001, L509.6001, L3100.5475, L3300.3500, L3410.1400 ####[facility] [address] [place], [place], [id number] Hemoglobin A1con 02-01-2025 HbA1c (Bld) [Mass fraction] 5.1 % Normal <=5.6 [facility] Comment on above: Result Comment: Norm al < 5.7 % Prediabetic 5.7 - 6.4 % Diabetic >or= 6.5 % Please note range changes. Performed By: #### L 101.9900, L100.0100, L501.9985, L500.4050, L501.5200, L501.6710, L501.9520, L503.0106, L503.6550, L506.0400, L506.1001, L509.6001, L3100.5475, L3300.3500, L3410.1400 ####[facility] [address] [place], [place], [address] L509.6001on 02-01-2025 CORTISOL 44.80 ug/dL High 6.02-18.40 [facility] Comment on above: Performed By: #### L 101.9900, L100.0100, L501.9985, L500.4050, L501.5200, L501.6710, L501.9520, L503.0106, L503.6550, L506.0400, L506.1001, L509.6001, L3100.5475, L3300.3500, L3410.1400 ####[facility] [address] [place], [place], [id number] Magnesiumon 02-01-2025 Magnesium [Mass/Vol] 1.9 mg/dL Normal 1.5-2.2 [facility] Comment on above: Performed By: #### L 101.9900, L100.0100, L501.9985, L500.4050, L501.5200, L501.6710, L501.9520, L503.0106, L503.6550, L506.0400, L506.1001, L509.6001, L3100.5475, L3300.3500, L3410.1400 ####[facility] [address] [facility] [place], [place], [id number] T4 Free Directon 02-01-2025 T4 FREE DIRECT 1.00 ng/dL Normal 0.76-1.46 [facility] Comment on above: Performed By: #### L 101.9900, L100.0100, L501.9985, L500.4050, L501.5200, L501.6710, L501.9520, L503.0106, L503.6550, L506.0400, L506.1001, L509.6001, L3100.5475, L3300.3500, L3410.1400 ####[facility] [address] [facility] [place], [place], [id number] Thyroid Stim Hormone (TSH)on 02-01-2025 TSH 3.580 uIU/mL Normal 0.300-4.20 0 [facility] Comment on above: Performed By: #### L 101.9900, L100.0100, L501.9985, L500.4050, L501.5200, L501.6710, L501.9520, L503.0106, L503.6550, L506.0400, L506.1001, L509.6001, L3100.5475, L3300.3500, L3410.1400 ####[facility] [address] [facility] [place], [place], [id number] Vitamin B12on 02-01-2025 Cobalamin (Vitamin B12) [Mass/Vol] 661 pg/mL Normal 180-914 [facility] Comment on above: Performed By: #### L 101.9900, L100.0100, L501.9985, L500.4050, L501.5200, L501.6710, L501.9520, L503.0106, L503.6550, L506.0400, L506.1001, L509.6001, L3100.5475, L3300.3500, L3410.1400 ####[facility] [address] [place], [place], [id number] Vitamin D,25 Hydroxyon 02-01 Vitamin D 25-OH 51.0 ng/mL Normal 30-100 [facility] Comment on above: Result Comment: Dora min D Status Deficiency: <20 ng/mL (50nmol/L) Insufficiency: 20-30 ng/mL (50-75 nmol/L) Sufficiency: 30-100 ng/mL (75-250 nmol/L) Toxicity: >100 ng/mL (>250 nmol/L) Performed By: #### L 101.9900, L100.0100, L501.9985, L500.4050, L501.5200, L501.6710, L501.9520, L503.0106, L503.6550, L506.0400, L506.1001, L509.6001, L3100.5475, L3300.3500, L3410.1400 ####[facility] [address] [place], [place], [address] MR/Carlos 01-06-2025 MR/LUISA. [address], [address] [place] [address] OFFICE VISIT Date of Service: 01/06/25 MR#: [id number] Acct: [id number] Name: NONA ANTONIO Rep #: [id number] : 2005 Provider: Dr. Santi Kerr se, DO Age/Sex: 19/F Location: [facility] [place] Status: Signed Intake Vital Signs 11/04/24 07:03 12/30/24 08:12 01/06/25 07:02 Height 5 ft 2 in 5 ft 2 in 5 ft 2 in Weight: 132 lb 2 oz BMI 24.1 BP 109/78 107/74 Blood Pressure Location Lt brachial Position Sitting Respiration 16 Pulse 73 90 Pulse Source Monitor Temp 98.5 F Pulse Oximetry (%) 95 Oxygen Delivery Method room air BP Intake Visit Reasons: 2mfu Allergies cyclobenzaprine (From Flexeril) Allergy (Verified 12/30/24 08:10) Hives pineapple Allergy (Verified 12/30/24 08:10) Hives Sulfa (Sulfonamide Antibiotics) Allergy (Verified 12/30/24 08:10) Hives sulfamethoxazole (From Bactrim) Allergy (Verified 12/30/24 08:10) Hives trimethoprim (From Bactrim) Allergy (Verified 12/30/24 08:10) Hives amoxicillin (From Augmentin) Adverse Reaction (Verified 12/30/24 08:10) Diarrhea clavulanic acid (From Augmentin) Adverse Reaction (Verified 12/30/24 08:10) Diarrhea PFSH Medical History Wears glasses ADHD Depression Anxiety Migraine headache Gastric reflux Non-smoker Asthma History of Holter monitoring Hypertension Sprain of left foot Left ankle sprain ADHD Generalized anxiety disorder Depression BPPV (benign paroxysmal positional vertigo) Angioedema Earache, left Contraceptive management Constipation Sinusitis, acute, maxillary Acute otitis media, right Abdominal pain URI (upper respiratory infection) Encounter for screening for COVID-19 GERD (gastroesophageal reflux disease) Anxiety Asthma Environmental allergies Surgical History History of esophagogastroduodenoscopy (EGD) Family History Father Afib Other Breast cancer Hypertension Thyroid disorder Social History Smoking Status: Never smoker alcohol intake: current alcohol intake frequency: a few times a week Alcohol type: wine substance use type: does not use what type of physical activity do you participate in: none HPI History of Present Illness History provided by: patient HPI: Nona Antonio is a 19 year old female who presents today for follow up evaluation. Patient reports that she will be moving to [place] tomorrow to be closer to work. Will be moving in to an apartment by herself. Is still taking the Adderall, but doesn't feel like it doesn't work at well as it had before. Unsure if the house rn has changed. Does feel like her Lexapro has been helpful but was anxious last night. Did feel like she went several months without significant anxiety. Did break up with boyfriend after he didn't get his horse and wagon driver's license. Has already started talking to someone else, however they live in [place]. Has been enjoying her job despite it being busy. Does feel like she might be slightly more irritable with Adderall, but does feel like she is much better functional. 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 Sleep has been doing well. Has not been taking doxepin. Denies SI/HI or AVH. Review of Systems Constitutional Reports: fatigue; Denies: fever(s), chills or change in weight Eyes Denies: change in vision or blurry vision Ears, Nose, Mouth, Throat Denies: throat pain, neck pain or change in hearing Cardiovascular Denies: chest pain or dyspnea Respiratory Denies: dyspnea, cough or wheezing Gastrointestinal Reports: nausea; Denies: abdominal pain, diarrhea or constipation Genitourinary Denies: dysuria or urinary frequency Musculoskeletal Reports: extremity pain and joint pain; Denies: back pain, neck pain or muscle weakness Integumentary/Breast Reports: rash and acne; Denies: new lesions Neurological Reports: headache(s); Denies: dizziness or confusion Psychiatric Reports: irritability Endocrine Reports: fatigue; Denies: excessive sweating Hematologic/Lymphatic Denies: easy bruising or easy bleeding Allergic/Immunologic Denies: wheezing Exam Mental Status Exam - Psych Appearance casually dressed Attitude cooperative Activity/Motor Behavior MSE activity/motor behavior finding no adventitious movements Speech regular rate, regular volume and regular prosody Mood OK Affect full range Thought Process linear and coherent Thought Content no delusions, no hallucinations, obsessions and compulsions Suicidal Ideation none Homicidal Ideation none Attention (more content not included)... Normal [facility] Gastroenterology Visit Repor ton 12-30-2024 Gastroenterology Visit Report [facility] Gastroenterology [address] [place] [address] OFFICE VISIT Date of Service: 12/30/24 MR#: [id number] Acct: [id number] Name: NONA ANTONIO Rep #: [id number] : 2005 Provider: JEANNINE canales Age/Sex: 19/F Location: [facility] Status: Signed Intake Vital Signs 09/30/24 08:16 11/04/24 07:03 12/30/24 08:12 Height 5 ft 2 in 5 ft 2 in 5 ft 2 in Weight: 135 lb 132 lb 2 oz BMI 24.7 24.1 BP 106/75 107/74 Respiration 18 16 Pulse 74 90 Temp 98.5 F Pulse Oximetry (%) 97 95 Oxygen Delivery Method room air room air Intake Visit Reasons: 3 M FU Chief Complaint: nausea, vomiting, constipation Office Automation Clerk Required: No Accompanied by: Self Is patient in pain?: Yes Allergies cyclobenzaprine (From Flexeril) Allergy (Verified 12/30/24 08:10) Hives pineapple Allergy (Verified 12/30/24 08:10) Hives Sulfa (Sulfonamide Antibiotics) Allergy (Verified 12/30/24 08:10) Hives sulfamethoxazole (From Bactrim) Allergy (Verified 12/30/24 08:10) Hives trimethoprim (From Bactrim) Allergy (Verified 12/30/24 08:10) Hives amoxicillin (From Augmentin) Adverse Reaction (Verified 12/30/24 08:10) Diarrhea clavulanic acid (From Augmentin) Adverse Reaction (Verified 12/30/24 08:10) Diarrhea Medications ???Medication ???Instructions ???Recorded ???Confirmed ???Type clonazepam 0.5 mg tablet 0.5 mg PO DAILY PRN anxiety 12/30/24 History linaclotide 145 mcg capsule 145 mcg PO .COMPLEX PRN 09/30/24 0 12/30/24 History (Linzess) ondansetron 4 mg disintegrating 4 mg PO Q8H PRN PRN Nausea #15 tab s 09/30/24 12/30/24 Rx tablet pantoprazole 40 mg tablet,delayed 40 mg PO QDAY #90 tabs 09/30/24 0 12/30/24 Rx release propranolol 20 mg tablet 20 mg PO .QD 09/30/24 12/30/24 His tory escitalopram oxalate 20 mg tablet 30 mg (1.5 x 20 mg) PO DAILY 30 0 11/04/24 12/30/24 Rx days #45 tabs drospirenone 3 mg-ethinyl 1 tab PO QDAY #84 tabs 12/01/24 Rx estradiol 0.02 mg tablet (Jaimie (28)) dextroamphetamine-amphetamin e 20 20 mg PO BID 12/30/24 12/30/24 His tory mg tablet (Adderall) famotidine 40 mg tablet (Pepcid) 40 mg PO QHS #90 tabs 12/30/24 Rx PFSH Medical History Wears glasses ADHD Depression Anxiety Migraine headache Gastric reflux Non-smoker Asthma History of Holter monitoring Hypertension Sprain of left foot Left ankle sprain ADHD Generalized anxiety disorder Depression BPPV (benign paroxysmal positional vertigo) Angioedema Earache, left Contraceptive management Constipation Sinusitis, acute, maxillary Acute otitis media, right Abdominal pain URI (upper respiratory infection) Encounter for screening for COVID-19 GERD (gastroesophageal reflux disease) Anxiety Asthma Environmental allergies Surgical History History of esophagogastroduodenoscopy (EGD) Family History Father Afib Other Breast cancer Hypertension Thyroid disorder Social History Smoking Status: Never smoker alcohol intake: current alcohol intake frequency: a few times a week Alcohol type: wine substance use type: does not use what type of physical activity do you participate in: none HPI HPI Chief Complaint: nausea, vomiting, constipation Details: NONA ANTONIO, is a 19 F who presents to the office today for OV 09/30/2024 19y/o female presents for follow-up post procedure. Colonoscopy was unremarkable 09/16/2024, biopsies consistent with melanosis coli. She was initially seen in the office 07/19/2024 with complaints of abdominal pain and constipation. Esophagram was unremarkable. She is continuing to experience chronic nausea and occasional breakthrough reflux but has reduced use of ondansetron to once a week. She discontinued Voquezna and sucralfate, and resumed pantoprazole 20mg daily at HS. I have increased pantoprazole to 40mg daily and recommended she take every morning before breakfast. She recently started Adderall and has noted a 10lb weight loss. She reports resolution in constipation with Linzess, but has reduced dosing to QOD due to causing diarrhea. I have provided her samples of Linzess 72mcg to take daily. SHe will provide symptom update in one week and follow-up in three months. Patient Instructions: Take pantoprazole 40mg once every day in the morning 30 minutes before breakfast Linzess 72mcg samples provided, takes once daily in the morning at least 30 minutes before food Contact office in 1 week with symptom update, and will send in RX of Linzess pending update Continue daily probiotic F (more content not included)... Normal [facility] MR/BMS.BPon 11-04-2024 MR/BMS.BP [address], [address] [place] [address] OFFICE VISIT Date of Service: 11/04/24 MR#: [id number] Acct: [id number] Name: NONA ANTONIO Rep #: [id number] : 2005 Provider: Dr. Santi Kerr se, DO Age/Sex: 19/F Location: [facility] [place] Status: Signed Intake Vital Signs 09/30/24 08:16 11/04/24 07:03 Height 5 ft 2 in 5 ft 2 in Weight: 135 lb BMI 24.7 BP 106/75 109/78 Blood Pressure Location Lt brachial Position Sitting Respiration 18 Pulse 74 73 Pulse Source Monitor Pulse Oximetry (%) 97 Oxygen Delivery Method room air BP Intake Visit Reasons: Follow up Office Automation Clerk Required: No Accompanied by: Mother Is patient in pain?: Yes (body aches) Pain scale (1-10): 3 Allergies cyclobenzaprine (From Flexeril) Allergy (Verified 11/04/24 07:02) Hives pineapple Allergy (Verified 11/04/24 07:02) Hives Sulfa (Sulfonamide Antibiotics) Allergy (Verified 11/04/24 07:02) Hives sulfamethoxazole (From Bactrim) Allergy (Verified 11/04/24 07:02) Hives trimethoprim (From Bactrim) Allergy (Verified 11/04/24 07:02) Hives amoxicillin (From Augmentin) Adverse Reaction (Verified 11/04/24 07:02) Diarrhea clavulanic acid (From Augmentin) Adverse Reaction (Verified 11/04/24 07:02) Diarrhea Medications ???Medication ???Instructions ???Recorded ???Confirmed ???Type clonazepam 0.5 mg tablet 0.5 mg PO DAILY PRN anxiety 11/04/24 History drospirenone 3 mg-ethinyl 1 tab PO QDAY #84 tabs 06/07/24 Rx estradiol 0.02 mg tablet (Jaimie (28)) linaclotide 145 mcg capsule 145 mcg PO .COMPLEX PRN 09/30/24 0 11/04/24 History (Shashi) ondansetron 4 mg disintegrating 4 mg PO Q8H PRN PRN Nausea #15 tab s 09/30/24 11/04/24 Rx tablet pantoprazole 40 mg tablet,delayed 40 mg PO QDAY #90 tabs 09/30/24 0 11/04/24 Rx release propranolol 20 mg tablet 20 mg PO .QD 09/30/24 11/04/24 His tory dextroamphetamine-amphetamin e 5 mg 5 mg PO BID 14 days #28 tabs 11/04/24 Rx tablet (Adderall) dextroamphetamine-amphetamin e 10 10 mg PO BID 30 days #60 tabs 10/1011/04/24 Rx mg tablet (Adderall) escitalopram oxalate 20 mg tablet 30 mg (1.5 x 20 mg) PO DAILY 30 0 11/04/24 11/04/24 Rx days #45 tabs PFSH Medical History Wears glasses ADHD Depression Anxiety Migraine headache Gastric reflux Non-smoker Asthma History of Holter monitoring Hypertension Sprain of left foot Left ankle sprain ADHD Generalized anxiety disorder Depression BPPV (benign paroxysmal positional vertigo) Angioedema Earache, left Contraceptive management Constipation Sinusitis, acute, maxillary Acute otitis media, right Abdominal pain URI (upper respiratory infection) Encounter for screening for COVID-19 GERD (gastroesophageal reflux disease) Anxiety Asthma Environmental allergies Surgical History History of esophagogastroduodenoscopy (EGD) Family History Father Afib Other Breast cancer Hypertension Thyroid disorder Social History Smoking Status: Never smoker alcohol intake: current alcohol intake frequency: a few times a week Alcohol type: wine substance use type: does not use what type of physical activity do you participate in: none HPI History of Present Illness History provided by: patient HPI: Nona Antonio is a 19 year old female who presents today for follow up evaluation. Feels like adderall has been helpful in some degree, but feels like it does not last the entirety of the day. Does feel like she gets tired at around noon and then again around 4 which coincides which about 4 hours after she takes medication. Describes having significant anxiety in the last week where she was feeling out of her body. Has not been applying because of these symptoms. Sleep has been doing largely well. Irritability has been largely well controlled. Denies SI/HI or AVH. Review of Systems Constitutional Reports: fatigue; Denies: fever(s), chills or change in weight Eyes Denies: change in vision or blurry vision Ears, Nose, Mouth, Throat Denies: throat pain, neck pain or change in hearing Cardiovascular Reports: palpitations; Denies: chest pain or dyspnea Respiratory Denies: dyspnea, cough or wheezing Gastrointestinal Reports: nausea; Denies: abdominal pain, diarrhea or constipation Genitourinary Denies: dysuria or urinary frequency Musculoskeletal Reports: extremity pain and joint pain; Denies: back pain, neck pain or muscle weakness Integumentary/Breast Reports: rash and acne; Denies: new lesions Neurological Repo (more content not included)... Normal [facility] Gastroenterology Visit Repor ton 09-30-2024 Gastroenterology Visit Report [facility] Gastroenterology [address] [place] [address] OFFICE VISIT Date of Service: 09/30/24 MR#: [id number] Acct: [id number] Name: NONA ANTONIO Rep #: [id number] : 2005 Provider: JEANNINE canales Age/Sex: 19/F Location: [facility] [place] Status: Signed Intake Vital Signs 07/07/24 15:37 07/15/24 08:52 09/16/24 10:28 09/30/24 08:16 Height 5 ft 2 in 5 ft 2 in 5 ft 2 in 5 ft 2 in Weight: 135 lb BMI 24.7 BP 106/75 Respiration 18 Pulse 74 Pulse Oximetry (%) 97 Oxygen Delivery Method room air Intake Visit Reasons: Follow Up Chief Complaint: nausea, vomiting, constipation Office Automation Clerk Required: No Is patient in pain?: Yes Allergies cyclobenzaprine (From Flexeril) Allergy (Verified 09/30/24 08:09) Hives pineapple Allergy (Verified 09/30/24 08:09) Hives Sulfa (Sulfonamide Antibiotics) Allergy (Verified 09/30/24 08:09) Hives sulfamethoxazole (From Bactrim) Allergy (Verified 09/30/24 08:09) Hives trimethoprim (From Bactrim) Allergy (Verified 09/30/24 08:09) Hives amoxicillin (From Augmentin) Adverse Reaction (Verified 09/30/24 08:09) Diarrhea clavulanic acid (From Augmentin) Adverse Reaction (Verified 09/30/24 08:09) Diarrhea Medications ???Medication ???Instructions ???Recorded ???Confirmed ???Type clonazepam 0.5 mg tablet 0.5 mg PO DAILY PRN anxiety 09/30/24 History diphenhydramine HCl 25 mg capsule 25 mg PO TID PRN itching 03/25/24 09/30/24 History (Benadryl) drospirenone 3 mg-ethinyl 1 tab PO QDAY #84 tabs 06/07/24 Rx estradiol 0.02 mg tablet (Jaimie (28)) dextroamphetamine-amphetamin e 5 mg 5 mg PO BID 30 days #60 tabs 09/30/24 Rx tablet (Adderall) escitalopram oxalate 20 mg tablet 20 mg PO DAILY 30 days #30 tabs 0 09/07/24 09/30/24 Rx linaclotide 145 mcg capsule 145 mcg PO .COMPLEX PRN 09/30/24 History (Linzess) ondansetron 4 mg disintegrating 4 mg PO Q8H PRN PRN Nausea #15 tab s 09/30/24 09/30/24 Rx tablet pantoprazole 40 mg tablet,delayed 40 mg PO QDAY #90 tabs 09/30/24 0 09/30/24 Rx release propranolol 20 mg tablet 20 mg PO .QD 09/30/24 09/30/24 His tory PFSH Medical History Wears glasses ADHD Depression Anxiety Migraine headache Gastric reflux Non-smoker Asthma History of Holter monitoring Hypertension Sprain of left foot Left ankle sprain ADHD Generalized anxiety disorder Depression BPPV (benign paroxysmal positional vertigo) Angioedema Earache, left Contraceptive management Constipation Sinusitis, acute, maxillary Acute otitis media, right Abdominal pain URI (upper respiratory infection) Encounter for screening for COVID-19 GERD (gastroesophageal reflux disease) Anxiety Asthma Environmental allergies Surgical History History of esophagogastroduodenoscopy (EGD) Family History Father Afib Other Breast cancer Hypertension Thyroid disorder Social History Smoking Status: Never smoker alcohol intake: current alcohol intake frequency: a few times a week Alcohol type: wine substance use type: does not use what type of physical activity do you participate in: none HPI HPI Chief Complaint: nausea, vomiting, constipation Details: NONA ANTONIO, is a 19 F who presents to the office today for OV 07/19/2024 19y/o female presents for initial consultation with complaints of abdominal pain and constipation. She was seen in the ED on 07/07/2024. CBC. CMP and UA were unremarkable in the ED. ABD x-ray revealed moderate gas. Pelvic US was unremarkable. She has quite a bit of anxiety and reports chronic generalized pain with negatiuve work-up, hives with any PO intake with previous negative allergy testing, reflux despite BID PPI and TID sucralfate, dysphagia, belching, and emetophobia. She reports a family history of IBS, denies any family h/o IBD. She reports an EGD revealed gastritis 5-6 years ago. I have made recommendations as outlined below. She will follow-up in the office post procedure. 1. Increase water intake 2. Start a probiotic (Align, Culturelle or Keen IO) 3. Dissolve Carafate in 5cc of water and take 30 minutes before lunch 4. Discontinue pantoprazole 5. Start Voquezna 20mg once daily with our without food (samples provided and RX sent to [facility]) 6. Start Linzess 145mcg once daily, take on an empty stomach 30 minute before breakfast every day. Call with symptom update in 3 weeks 7. Increase dietary fiber 8. Start daily fiber supplement either Benefiber 2tsp once daily or Fibercon tablets 2 tablets once daily (more content not included)... Normal [facility] Colonoscopy Reporton 025 Colonoscopy Report [facility] Medical Records Department [address] [place] [address] Colonoscopy Report MR#: [id number] Acct: [id number] Name: NONA ANTONIO Rep #: [id number] : 2005 19 From: Colt Jackson DO PCP: Gini Rodríguez DO Status:REG [facility] [place] Patient Name: Nona Antonio Procedure Date: 09/16/2024 11:05 AM Date of : 2005 Age: 19 Procedure: Colonoscopy Indications: Abdominal pain in the left lower quadrant, Periumbilical abdominal pain, Abdominal pain in the right lower quadrant, Suspected irritable bowel syndrome Providers: Colt Jackson DO Referring MD: Gini Rodríguez Do Medicines: Monitored Anesthesia Care Patient Profile: This is a 19 year old female. Refer to note in patient chart for documentation of history and physical. Last Colonoscopy: none. The patient's first colonoscopy is today. Complications: No immediate complications. Procedure: Pre-Anesthesia Assessment: - Prior to the procedure, a History and Physical was performed, and patient medications and allergies were reviewed. The patient is competent. The risks and benefits of the procedure and the sedation options and risks were discussed with the patient. All questions were answered and informed consent was obtained. Patient identification and proposed procedure were verified by the physician in the pre-procedure area. Mental Status Examination: alert and oriented. Airway Examination: normal oropharyngeal airway and neck mobility. Respiratory Examination: clear to auscultation. CV Examination: normal. Prophylactic Antibiotics: The patient does not require prophylactic antibiotics. Prior Anticoagulants: The patient has taken no anticoagulant or antiplatelet agents except for NSAID medication. ASA Grade Assessment: II - A patient with mild systemic disease. After reviewing the risks and benefits, the patient was deemed in satisfactory condition to undergo the procedure. The anesthesia plan was to use monitored anesthesia care (MAC). Immediately prior to administration of medications, the patient was re-assessed for adequacy to receive sedatives. The heart rate, respiratory rate, oxygen saturations, blood pressure, adequacy of pulmonary ventilation, and response to care were monitored throughout the procedure. The physical status of the patient was re-assessed after the procedure. After I obtained informed consent, the scope was passed under direct vision. Throughout the procedure, the patient's blood pressure, pulse, and oxygen saturations were monitored continuously. The Colonoscope was introduced through the anus and advanced to the cecum, identified by appendiceal orifice and ileocecal valve. The colonoscopy was performed without difficulty. The patient tolerated the procedure well. The quality of the bowel preparation was adequate. The terminal ileum, ileocecal valve, appendiceal orifice, and rectum were photographed. Scope In: 11:14:51 AM Scope Withdrawal Time 0 hours 6 minutes 47 seconds Scope Out: 11:28:13 AM Total Procedure Duration Time 0 hours 13 minutes 22 seconds Findings: The perianal and digital rectal examinations were normal. The colon (entire examined portion) appeared normal. Biopsies were taken with a cold forceps for histology. Verification of patient identification for the specimen was done. Estimated blood loss was minimal. The terminal ileum appeared normal. Biopsies were taken with a cold forceps for histology. Verification of patient identification for the specimen was done. Estimated blood loss was minimal. Impression: - The entire examined colon is normal. Biopsied. - The examined portion of the ileum was normal. Biopsied. Recommendation: - Discharge patient to home. - Resume previous diet. - Continue present medications. - Await pathology results. - Repeat colonoscopy at age 43 for screening purposes. Procedure Code(s): --- Professional --- 69962, Colonoscopy, flexible; with biopsy, single or multiple CPT copyright 2021 [employer]. All rights reserved. The codes documented in this report are preliminary and upon jointer machine operator review may be revised to meet current compliance requirements. Colt Jackson DO 09/16/2024 11:31:10 AM This report has been signed electronically. Number of Addenda: 0 Note Initiated On: 09/16/2024 11:05 AM 09/16/24 1131 Date Colt Jackson DO Cosigner Signature: Date (if indicated) CC: Gini Rodríguez DO; Colt Jackson DO Date Dictated: 09/16/24 1105 Date Transcribed: Transmission Design Engineer: CHAVA Signed [facility] MR/POSTOP.[facility] 09-16-2024 MR/POSTOP.[facility] Medical Records Department [address] [place] [address] Anesthesia Postop Eval I 09/16/24 1134 MR#: [id number] Acct: [id number] Name: NONA ANTONIO Rep #: [id number] : 2005 19 From: Betty Villarreal CRNA PCP: Gini Rodríguez DO Status:REG SDC Y Race: C Location: [place] [address] Anesthesia: Postop Eval I Current Vital Signs Temperature: 98.2 F Pulse Rate: 80 Blood Pressure: 112/68 Respiratory Rate: 16 Pulse Ox: 100 Oxygen Delivery Method: Room Air Assessment Airway patent: Yes Spontaneous unlabored respirations: Yes Mental status: Asleep nausea: No Vomiting: No Anesthesia Complication: No Fluid Hydration Crystalloid volume administer (ml): 10 Total IV fluid infused: 10 Progress Note Anesthesia document: Postop Eval 1 completed: Yes 09/16/24 1136 Date Betty Villarreal CORPORATE GENERAL MANAGER Cosigner Signature: Date CC: Signed Normal [facility] MR/[id number] 09-16-2024 MR/POSTOPAN2 [facility] Medical Records Department [address] [place] [address] Anesthesia Postop Eval II 09/16/24 1539 MR#: [id number] Acct: [id number] Name: NONA ANTONIO Rep #: [id number] : 2005 19 From: Jose Hunt MD PCP: Gini Rodríguez DO Status:[facility] Y Race: C Location: [place] Anesthesia Postop Eval I Sum Postop Eval Completion status Anesthesia document: Postop Eval 1 completed: Yes Anesthesia Postop Eval I Summary Anesthesia Postop Eval I Summary: Anesthesia Postop Eval I: Assessment Summary Airway patent Yes 09/16/24 11:36 CORPORATE GENERAL MANAGER.JSWI Spontaneous unlabored Yes 09/16/24 11:36 CORPORATE GENERAL MANAGER.JSWI respirations Mental status Calm,Asleep 09/16/24 11:51 CORPORATE GENERAL MANAGER.CSIR nausea No 09/16/24 11:51 CORPORATE GENERAL MANAGER.CSIR Vomiting No 09/16/24 11:51 CORPORATE GENERAL MANAGER.CSIR Anesthesia Postop Eval I: Fluid Summary Crystalloid volume administer 10 09/16/24 11:36 CORPORATE GENERAL MANAGER.JSWI (ml) Colloids volume administered ( ml) Blood Product volume administered (ml) Total IV fluid infused 10 09/16/24 11:36 CORPORATE GENERAL MANAGER.JSWI Anesthesia Postop Eval I: Summary Notes Anesthesia Complication No 09/16/24 11:36 CORPORATE GENERAL MANAGER.JSWI Anesthesia Complication Comment: Post-operative progress note Anesthesia: Postop Eval II Evaluation Mental status: Awake and Calm Pain Level: 0 nausea: No Vomiting: No Complications Anesthesia Complication: No 09/16/24 1540 Date Jose Patiño Signature: Date CC: Signed Normal [facility] MR/POSTOPAN2 [facility] Medical Records Department [address] [place] [address] Anesthesia Postop Eval II 09/16/24 1151 MR#: [id number] Acct: [id number] Name: PACONONAVIKAS PLUNKETT Rep #: [id number] : 2005 19 From: Silvana Krishnan PCP: Gini Rodríguez DO Status:REG SDC Y Race: C Location: [place] [address] Anesthesia Postop Eval I Sum Postop Eval Completion status Anesthesia document: Postop Eval 1 completed: Yes Anesthesia Postop Eval I Summary Anesthesia Postop Eval I Summary: Anesthesia Postop Eval I: Assessment Summary Airway patent Yes 09/16/24 11:36 CORPORATE GENERAL MANAGER.JSWI Spontaneous unlabored Yes 09/16/24 11:36 CORPORATE GENERAL MANAGER.JSWI respirations Mental status Asleep 09/16/24 11:36 CORPORATE GENERAL MANAGER.JSWI nausea No 09/16/24 11:36 CORPORATE GENERAL MANAGER.JSWI Vomiting No 09/16/24 11:36 CORPORATE GENERAL MANAGER.JSWI Anesthesia Postop Eval I: Fluid Summary Crystalloid volume administer 10 09/16/24 11:36 CORPORATE GENERAL MANAGER.JSWI (ml) Colloids volume administered ( ml) Blood Product volume administered (ml) Total IV fluid infused 10 09/16/24 11:36 CORPORATE GENERAL MANAGER.JSWI Anesthesia Postop Eval I: Summary Notes Anesthesia Complication No 09/16/24 11:36 CORPORATE GENERAL MANAGER.JSWI Anesthesia Complication Comment: Post-operative progress note Anesthesia: Postop Eval II Evaluation Mental status: Calm and Asleep Pain Level: 0 nausea: No Vomiting: No 09/16/24 1152 Date Silvana Patiño Signature: Date CC: Signed Normal [facility] ,Urineon 09-16-2024 Beta HCG ( test) Ql (U) Negative Normal [facility] Comment on above: Result Comment: Very dilute urine specimens, as indicated by a low specific gravity, may not contain civil rights representative levels of hCG. If is still suspected, a first morning urine specimen should be collected 48 hours later and tested. Performed By: #### L [phone] #### [facility] [place], [address] Surgery Specimen Level Steven 09-16-2024 Surgery Specimen Level IV -------- Patient Age/Sex Location Account Attending Physician -------- NONA ANTONIO EN [id number] Colt Jackson DO -------- Specimen: [id number] Received: 09/16/24 Status: KEANU Welsh Num: [id number] Spec Type: COLON BX Subm Dr: Colt Jackson, HEADER OPERATION: Colonoscopy, biopsy PRE-OP DIAGNOSIS: Dysphagia, constipation, diarrhea TISSUE SUBMITTED: A- Terminal ileum biopsy, B- Random colonic biopsy -------- MICROSCOPIC DIAGNOSIS A. Terminal ileum, biopsy: Fragments of small intestinal mucosa, no pathologic diagnosis. B. 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 SJ. 09/17/2024 MICROSCOPIC DESCRIPTION Slides are reviewed. GROSS DESCRIPTION A. Received in fixative is one container labeled with the patient's name and designated Terminal ileum biopsy. The specimen consists of one irregular fragment of light young soft tissue that measures 0.5 x 0.3 x 0.1 cm. The specimen is totally submitted in one cassette. B. Received in fixative is one container labeled with the patient's name and designated Random colonic biopsy. The specimen consists of multiple irregular fragments of light young soft tissue that in aggregate measure 1.5 x 0.5 x 0.1 cm. The specimen is totally submitted in one cassette. . 09/16/2024 [id number] -------- Patient Age/Sex Location Account Attending Physician -------- NONA ANTONIO EN [id number] Colt Jackson DO -------- Signed (signature on file) Dr. Moris Lindsay MD 09/17/24 1158 -------- Normal [facility] Comment on above: Performed By: #### P JENNIFERIV ####[facility] [id number] [place], [address] MR/BMS.Adan 09-07-2024 MR/BMS.[address], [address] [address] OFFICE VISIT Date of Service: 09/07/24 MR#: [id number] Acct: [id number] Name: NONA ANTONIO Rep #: [id number] : 2005 Provider: Dr. Santi Kerr se, Age/Sex: 19/F Location: [facility] Status: Signed Intake Vital Signs 07/15/24 08:52 09/07/24 07:39 Height 5 ft 2 in 5 ft 2 in Weight: 139 lb BMI 25.4 BP 111/78 Blood Pressure Location Lt brachial Position Sitting Respiration 16 Pulse 70 Pulse Source Monitor BP Intake Visit Reasons: 6 M FU Accompanied by: Mother Allergies cyclobenzaprine (From Flexeril) Allergy (Verified 09/07/24 07:41) Hives Sulfa (Sulfonamide Antibiotics) Allergy (Verified 09/07/24 07:41) Hives sulfamethoxazole (From Bactrim) Allergy (Verified 09/07/24 07:41) Hives trimethoprim (From Bactrim) Allergy (Verified 09/07/24 07:41) Hives amoxicillin (From Augmentin) Adverse Reaction (Verified 09/07/24 07:41) Diarrhea clavulanic acid (From Augmentin) Adverse Reaction (Verified 09/07/24 07:41) Diarrhea Medications ???Medication ???Instructions ???Recorded ???Confirmed ???Type clonazepam 0.5 mg tablet 0.5 mg PO DAILY PRN anxiety 07/17/23 09/07/24 History propranolol 20 mg tablet 20 mg PO BID 11/11/23 09/07/24 History diphenhydramine HCl 25 mg capsule 25 mg PO TID PRN 03/25/24 09/07/24 History (Benadryl) drospirenone 3 mg-ethinyl 1 tab PO QDAY #84 tabs 06/07/24 09/07/24 Rx estradiol 0.02 mg tablet (Jaimie (28)) ondansetron 4 mg disintegrating 4 mg PO Q8H PRN PRN Nausea #15 tabs 07/07/24 09/07/24 Rx tablet linaclotide 145 mcg capsule 145 mcg PO .COMPLEX #90 caps 07/15/24 09/07/24 Rx (Linzess) dextroamphetamine-amphetamin e 5 mg 5 mg PO BID 30 days #60 tabs 01/28/25 01/28/25 Rx tablet (Adderall) escitalopram oxalate 20 mg tablet 20 mg PO DAILY 30 days #30 tabs 09/07/24 09/07/24 Rx PFSH Medical History (Updated 07/15/24 @ 08:45 by Lo Goode NP-C) Abdominal pain Constipation URI (upper respiratory infection) Sprain of left foot Left ankle sprain ADHD Generalized anxiety disorder Depression BPPV (benign paroxysmal positional vertigo) Angioedema Earache, left Contraceptive management Sinusitis, acute, maxillary Acute otitis media, right Encounter for screening for COVID-19 GERD (gastroesophageal reflux disease) Anxiety Asthma Environmental allergies Family History Father Afib Other Breast cancer Hypertension Thyroid disorder Social History Smoking Status: Never smoker alcohol intake: current alcohol intake frequency: a few times a week Alcohol type: wine substance use type: does not use what type of physical activity do you participate in: none HPI History of Present Illness History provided by: patient HPI: Nona Antonio is a 19 year old female who presents today for follow up evaluation. Patient reports that that she has been doing ok. States that a month ago she had been doing terrible and awful. 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 She lost her apartment in May and is currently living back at home. Has not been talking to her best friend of 11 years recently, because she is hanging out with people who bullied her growing up. Did recently make back up with the friend she had been living with. Has been having worsening headaches. Went to the ER last night because of migraine. Was the worst it had been yesterday. Describes some associated confusion including not spelling last name correctly. Has had sensation of Not being me elaborates that this is mildly depersonalization. Has been sleeping better in recent past. Reports to getting about 9-10 hours on average. Doesn't feel well rested. Feels like she is eating more. Denies SI/HI or AVH. Tried Qelbree and felt that it made her feel like a zombie. Continues to endorse having some significant continuation of ADHD. Continues to be spacey and make some careless mistakes when at work. Not following with Kristel Goff and felt that it was not working out. Review of Systems Constitutional Reports: fatigue; Denies: fever(s), chills or change in weight Eyes Denies: change in vision or blurry vision Ears, Nose, Mouth, Throat Denies: throat pain, neck pain or change in hearing Cardiovascular Reports: palpitations; Denies: chest pain or dyspnea Respiratory Denies: dyspnea, cough or wheezing Gastrointestinal Reports: nausea and vomiting; Denies: abdominal pain, diarrhea or constipation Genitourinary Denies: dysuria or urinary frequency Musculoskeletal Reports: extremity pain and joint pain; Denies: back pain, neck pain or muscle weakness Integumentary/Breast Reports: (more content not included)... [facility] 09-06-2024 [facility] HNO ID: [id number] Author: LORE JOYNER RT(R) Service: Radiology Author Type: Corn Press Operator Type: Allied Health Filed: 09/06/2024 15:40 Note Text: Radiology Service Progress Note PATIENT NAME: Nona Antonio DATE OF SERVICE: September 06, 2024 TIME: 3:39 PM PATIENT IDENTITY VERIFICATION COMPLETED USING TWO (2) IDENTIFIERS: Name and Date of confirmed by patient verbally. FALL SCREENING: Has the patient had 2 falls in the last year or 1 fall with injury or currently using an Ambulatory Assistive Device (Walker, Cane, Wheelchair, Crutches, etc.)? Emergency Room Patient: Screened in ED PATIENT GENDER DATA: Assigned female at . status: : No status: NO. PATIENT RELEVANT IMPLANT DATA REVIEWED: Not Applicable PATIENT PRESENTS WITH AN IMPLANTABLE OR ATTACHED DIESEL AUTOMOTIVE TECHNICIAN: No RADIOLOGY DEPARTMENT: General X-ray: Exam(s) Completed: Chest X-Ray PERIPHERAL IV DATA: Not applicable SIGNED BY: RT Emily(Kendrick) September 06, 2024 3:39 PM [facility] HNO ID: [id number] Author: SHADI HANNA RT(R) Service: Radiology Author Type: Technologist Type: Allied Health Filed: 09/06/2024 15:33 Note Text: Radiology Service Progress Note PATIENT NAME: Nona Antonio DATE OF SERVICE: September 06, 2024 TIME: 3:19 PM PATIENT IDENTITY VERIFICATION COMPLETED USING TWO (2) IDENTIFIERS: Name and Date of confirmed by patient verbally and Name and Date of confirmed by identification band. FALL SCREENING: Has the patient had 2 falls in the last year or 1 fall with injury or currently using an Ambulatory Assistive Device (Walker, Cane, Wheelchair, Crutches, etc.)? Emergency Room Patient: Screened in ED PATIENT GENDER DATA: Assigned female at . status: : No status: NO. PATIENT RELEVANT IMPLANT DATA REVIEWED: Yes PATIENT PRESENTS WITH AN IMPLANTABLE OR ATTACHED DIESEL AUTOMOTIVE TECHNICIAN: No RADIOLOGY DEPARTMENT: CT; Exam(s) Completed: Brain PERIPHERAL IV DATA: Not applicable SIGNED BY: RT Maryann(R) September 06, 2024 3:19 PM [facility] HNO ID: [id number] Author: LUL THEODORE RT(R) Service: ? Author Type: Technologist Type: Allied Health Filed: 09/06/2024 14:19 Note Text: UNABLE TO COMPLETE 2 VIEW CHEST X-RAY DUE TO PATIENT NOT BEING ABLE TO STAND. SHE WAS VERY UNSTEADY ON HER FEET AND HER LEGS WERE SHAKING. WAITING FOR PATIENT TO GET A ROOM/BED THEN WE CAN COMPLETE XRAY ORDER. Normal [facility] Bacteria Ur Culton Bacteria identified Cx Nom (U) ORGANISM ID: 1 10,000 -<50,000 CFU/ml Normal urogenital jeanmarie Normal [facility] Comment on above: Performed By: #### 6 30-4 #### [facility] CLIA [id number] [address] [place], [place] [address] [place] [address] [place] CBC W Auto Differential pane l (Bld)on 09-06-2024 Basophils (Bld) [#/Vol] 10*3/uL Normal <0.11 [facility] Comment on above: Order Comment: Speci men Type: BLOOD SPECIMEN Ordering Facility: [facility] Address: [address] [place] [address] Performed By: #### 5 7021-8 #### [facility] CLIA [id number] [address] [place] [address] [place] Basophils/100 WBC (Bld) 0.2 % Normal [facility] Comment on above: Order Comment: Speci men Type: BLOOD SPECIMEN Ordering Facility: [facility] Address: [address] [place] [address] Performed By: #### 5 7021-8 #### [facility] CLIA [id number] [address] [place] [address] [place] Differential cell count method Nom (Bld) Auto Normal [facility] Comment on above: Order Comment: Speci men Type: BLOOD SPECIMEN Ordering Facility: [facility] Address: [address] [place] [address] Performed By: #### 5 7021-8 #### [facility] CLIA [id number] [address] [place] [address] [place] Eosinophils (Bld) [#/Vol] 10*3/uL Normal <0.46 [facility] Comment on above: Order Comment: Speci men Type: BLOOD SPECIMEN Ordering Facility: [facility] Address: [address] [place] [address] Performed By: #### 5 7021-8 #### [facility] CLIA [id number] [address] [place] [address] [place] Eosinophils/100 WBC (Bld) 0.1 % Normal [facility] Comment on above: Order Comment: Speci men Type: BLOOD SPECIMEN Ordering Facility: [facility] Address: [address] [place] [address] Performed By: #### 5 7021-8 #### [facility] CLIA [id number] [address] [place] Erythrocyte distribution width (RBC) [Ratio] 13.2 % Normal 11.5-15.0 [facility] Comment on above: Order Comment: Speci men Type: BLOOD SPECIMEN Ordering Facility: [facility] Address: [address] [place] [address] Performed By: #### 5 7021-8 #### [facility] CLIA [id number] [address] [place] Hematocrit (Bld) [Volume fraction] 39.0 % Normal 36.0-46.0 [facility] Comment on above: Order Comment: Speci men Type: BLOOD SPECIMEN Ordering Facility: [facility] Address: [address] [place] [address] Performed By: #### 5 7021-8 #### [facility] CLIA [id number] [address] [place] [address] [place] Hemoglobin (Bld) [Mass/Vol] 13.2 g/dL Normal 11.5-15.5 [facility] Comment on above: Order Comment: Speci men Type: BLOOD SPECIMEN Ordering Facility: [facility] Address: [address] [place] [address] Performed By: #### 5 7021-8 #### [facility] CLIA [id number] [address] [place] [address] [place] Immature granulocytes (Bld) [#/Vol] 10*3/uL Normal <0.10 [facility] Comment on above: Order Comment: Speci men Type: BLOOD SPECIMEN Ordering Facility: [facility] Address: [address] [place] [address] Performed By: #### 5 7021-8 #### [facility] CLIA [id number] [address] [place] [address] [place] Immature granulocytes/100 WBC (Bld) 0.1 % Normal [facility] Comment on above: Order Comment: Speci men Type: BLOOD SPECIMEN Ordering Facility: [facility] Address: [address] [place] [address] Performed By: #### 5 7021-8 #### [facility] CLIA [id number] [address] [place] [address] [place] Lymphocytes (Bld) [#/Vol] 2.53 10*3/uL Normal 1.00-4.00 [facility] Comment on above: Order Comment: Speci men Type: BLOOD SPECIMEN Ordering Facility: [facility] Address: [address] [place] [address] Performed By: #### 5 7021-8 #### [facility] CLIA [id number] [address] [place] [address] [place] [facility] OF [place] Lymphocytes/100 WBC (Bld) 31.6 % Normal [facility] Comment on above: Order Comment: Speci men Type: BLOOD SPECIMEN Ordering Facility: [facility] Address: [address] [place] [address] Performed By: #### 5 7021-8 #### [facility] CLIA [id number] [address] MCH (RBC) [Entitic mass] 27.5 pg Normal 26.0-34.0 [facility] Comment on above: Order Comment: Speci men Type: BLOOD SPECIMEN Ordering Facility: [facility] Address: [address] [place] [address] Performed By: #### 5 7021-8 #### [facility] CLIA [id number] [address] MCHC (RBC) [Mass/Vol] 33.8 g/dL Normal 30.5-36.0 [facility] Comment on above: Order Comment: Speci men Type: BLOOD SPECIMEN Ordering Facility: [facility] Address: [address] [place] [address] Performed By: #### 5 7021-8 #### [facility] CLIA [id number] [address] MCV (RBC) [Entitic vol] 81.3 fL Normal 80.0-100.0 [facility] Comment on above: Order Comment: Speci men Type: BLOOD SPECIMEN Ordering Facility: [facility] Address: [address] [place] [address] Performed By: #### 5 7021-8 #### [facility] CLIA [id number] [address] Monocytes (Bld) [#/Vol] 0.35 10*3/uL Normal <0.87 [facility] Comment on above: Order Comment: Speci men Type: BLOOD SPECIMEN Ordering Facility: [facility] Address: [address] [place] [address] Performed By: #### 5 7021-8 #### [facility] CLIA [id number] [address] Monocytes/100 WBC (Bld) 4.4 % Normal [facility] Comment on above: Order Comment: Speci men Type: BLOOD SPECIMEN Ordering Facility: [facility] Address: [address] [place] [address] Performed By: #### 5 7021-8 #### [facility] CLIA [id number] [address] [place] [address] [place] Neutrophils (Bld) [#/Vol] 5.09 10*3/uL Normal 1.45-7.50 [facility] Comment on above: Order Comment: Speci men Type: BLOOD SPECIMEN Ordering Facility: [facility] Address: [address] [place] [address] Performed By: #### 5 7021-8 #### [facility] CLIA [id number] [address] [place] Neutrophils/100 WBC (Bld) 63.6 % Normal [facility] Comment on above: Order Comment: Speci men Type: BLOOD SPECIMEN Ordering Facility: [facility] Address: [address] [place] [address] Performed By: #### 5 7021-8 #### [facility] CLIA [id number] [address] [place] [address] [place] Nucleated RBC (Bld) [#/Vol] 10*3/uL Normal <0.01 [facility] Comment on above: Order Comment: Speci men Type: BLOOD SPECIMEN Ordering Facility: [facility] Address: [address] [place] [address] Performed By: #### 5 7021-8 #### [facility] CLIA [id number] [address] [place] [address] [place] Nucleated RBC/100 WBC (Bld) [Ratio] 0.0 /100 WBC Normal [facility] Comment on above: Order Comment: Speci men Type: BLOOD SPECIMEN Ordering Facility: [facility] Address: [address] [place] [address] Performed By: #### 5 7021-8 #### [facility] CLIA [id number] [address] [place] [address] [place] Platelet mean volume (Bld) [Entitic vol] 8.8 fL Low 9.0-12.7 [facility] Comment on above: Order Comment: Speci men Type: BLOOD SPECIMEN Ordering Facility: [facility] Address: [address] [place], [place] [id number] Performed By: #### 5 7021-8 #### [facility] CLIA [id number] [address] Platelets (Bld) [#/Vol] 327 10*3/uL Normal 150-400 [facility] Comment on above: Order Comment: Speci men Type: BLOOD SPECIMEN Ordering Facility: [facility] Address: [address] [place] [address] Performed By: #### 5 7021-8 #### [facility] CLIA [id number] [address] [place] RBC (Bld) [#/Vol] 4.80 10*6/uL Normal 3.90-5.20 [facility] Comment on above: Order Comment: Speci men Type: BLOOD SPECIMEN Ordering Facility: [facility] Address: [address] [place] [address] Performed By: #### 5 7021-8 #### [facility] CLIA [id number] [address] OF [place] WBC (Bld) [#/Vol] 8.01 10*3/uL Normal 3.70-11.00 [facility] Comment on above: Order Comment: Speci men Type: BLOOD SPECIMEN Ordering Facility: [facility] Address: [address] [place] [address] Performed By: #### 5 7021-8 #### [facility] CLIA [id number] [address] BRAIN WO IVCONon 09-06-19 CT BRAIN WO IVCON * * *Final Report* * * DATE OF EXAM: Sep 06 2024 3:24PM [facility] [place] CT BRAIN WO IVCON / PROCEDURE REASON: Mental status change, unknown cause * * * * Physician Interpretation * * * * EXAMINATION: CT BRAIN WO IVCON CLINICAL HISTORY: Mental status change TECHNIQUE: Serial axial images without IV contrast were obtained from the vertex to the foramen magnum. MQ: CTBWO_3 CT Radiation dose: Integrated Dose-Length Product (DLP) for this visit = 748 mGy*cm CT Dose Reduction Employed: No dose reduction techniques were required COMPARISON: None. RESULT: Post-operative change: None. Acute change: No evidence of an acute infarct or other acute parenchymal process. Hemorrhage: No evidence of acute intracranial hemorrhage. ECASS hemorrhagic transformation score: Not Applicable Mass Lesion / Mass Effect: There is no evidence of an intracranial mass or extraaxial fluid collection. No significant mass effect. Chronic change: None apparent. Parenchyma: There is no significant volume loss. The brain parenchyma is within normal limits for age. Ventricles: The ventricles are within normal limits of size and configuration for age. Paranasal sinuses and skull base: The visualized paranasal sinuses are grossly clear. The skull base and imaged soft tissues are unremarkable. Localizer images: No additional findings. IMPRESSION: No CT evidence of acute intracranial abnormality Transmission Design Engineer: LEONIDAS Transcribe Date/Time: Sep 06 2024 3:40P Dictated by : NGA LOWRY MD This examination was interpreted and the report reviewed and electronically signed by: NGA LOWRY MD on Sep 06 2024 3:42PM EST [id number] Normal [facility] Comprehensive metabolic 2000 panelon 09-06-2024 Albumin [Mass/Vol] 4.6 g/dL Normal 3.9-4.9 [facility] Comment on above: Order Comment: Mirna shirley Type: BLOOD SPECIMEN Ordering Facility: [facility] Address: [address] [place] [address] Performed By: #### 2 4323-8, HSTNT #### [facility] CLIA [id number] [address] [place] [address] [place] [facility] ALP [Catalytic activity/Vol] 68 U/L Normal 34-123 [facility] Comment on above: Order Comment: Mirna shirley Type: BLOOD SPECIMEN Ordering Facility: [facility] Address: [address] [place] [address] Performed By: #### 2 4323-8, HSTNT #### [facility] CLIA [id number] [address] STATES OF [facility] ALT [Catalytic activity/Vol] 9 U/L Normal 7-38 [facility] Comment on above: Order Comment: Speci men Type: BLOOD SPECIMEN Ordering Facility: [facility] Address: [address] [place] [address] Performed By: #### 2 4323-8, HSTNT #### [facility] CLIA [id number] [address] Anion gap [Moles/Vol] 14 mmol/L Normal 8-15 [facility] Comment on above: Order Comment: Speci men Type: BLOOD SPECIMEN Ordering Facility: [facility] Address: [address] [place] [address] Performed By: #### 2 4323-8, HSTNT #### [facility] CLIA [id number] [address] AST [Catalytic activity/Vol] 17 U/L Normal 13-35 [facility] Comment on above: Order Comment: Speci men Type: BLOOD SPECIMEN Ordering Facility: [facility] Address: [address] [place] [address] Performed By: #### 2 4323-8, HSTNT #### [facility] CLIA [id number] [address] [place] Bilirubin [Mass/Vol] 0.5 mg/dL Normal 0.2-1.3 [facility] Comment on above: Order Comment: Speci men Type: BLOOD SPECIMEN Ordering Facility: [facility] Address: [address] [place] [address] Performed By: #### 2 4323-8, HSTNT #### [facility] CLIA [id number] [address] [place] Calcium [Mass/Vol] 10.2 mg/dL Normal 8.5-10.2 [facility] Comment on above: Order Comment: Speci men Type: BLOOD SPECIMEN Ordering Facility: [facility] Address: [address] [place] [address] Performed By: #### 2 4323-8, HSTNT #### [facility] CLIA [id number] [address] OF [place] Chloride [Moles/Vol] 103 mmol/L Normal 98-107 [facility] Comment on above: Order Comment: Speci men Type: BLOOD SPECIMEN Ordering Facility: [facility] Address: [address] [place] [address] Performed By: #### 2 4323-8, HSTNT #### [facility] CLIA [id number] [address] [place] [address] [place] CO2 [Moles/Vol] 23 mmol/L Normal 22-30 [facility] Comment on above: Order Comment: Mirna shirley Type: BLOOD SPECIMEN Ordering Facility: [facility] Address: [address] [place] [address] Performed By: #### 2 4323-8, HSTNT #### [facility] CLIA [id number] [address] STATES OF [facility] Creatinine [Mass/Vol] 0.63 mg/dL Normal 0.58-0.96 [facility] Comment on above: Order Comment: Mirna shirley Type: BLOOD SPECIMEN Ordering Facility: [facility] Address: [address] [place] [address] Performed By: #### 2 4323-8, HSTNT #### [facility] CLIA [id number] [address] Creatinine and Glomerular filtration rate.predicted panel (S/P/Bld) 130 mL/min/1.73m??? Normal >=60 [facility] Comment on above: Order Comment: Mirna shirley Type: BLOOD SPECIMEN Ordering Facility: [facility] Address: [address] [place] [address] Result Comment: Yolanda mated Glomerular Filtration Rate (eGFR) is calculated using the 2020 CKD-EPI creatinine equation. This equation utilizes serum creatinine, sex, and age as parameters. The creatinine assay has traceable calibration to isotope dilution-mass spectrometry. Refer to KDIGO guidelines for clinical interpretation. In patients with unstable renal function, e.g. those with acute kidney injury, the eGFR may not accurately reflect actual GFR. Performed By: #### 2 4323-8, HSTNT #### [facility] CLIA [id number] [address] [place] Glucose [Mass/Vol] 109 mg/dL High 74-99 [facility] Comment on above: Order Comment: Mirna shirley Type: BLOOD SPECIMEN Ordering Facility: [facility] Address: [address] [place] [address] Result Comment: The [place] Diabetes [employer] (ADA) provides guidance for cutoff values for fasting glucose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 ???Confirmed ???Type clonazepam 0.5 mg tablet 0.5 mg PO DAILY PRN anxiety 07/17/23 07/15/24 History propranolol 20 mg tablet 20 mg PO BID 11/11/23 07/15/24 History escitalopram oxalate 20 mg tablet 20 mg PO DAILY 30 days #30 tabs 02/25/24 07/15/24 Rx diphenhydramine HCl 25 mg capsule 25 mg PO TID PRN 03/25/24 07/15/24 History (Benadryl) drospirenone 3 mg-ethinyl 1 tab PO QDAY #84 tabs 06/07/24 07/15/24 Rx estradiol 0.02 mg tablet (Jaimie (28)) dicyclomine 10 mg capsule 20 mg (2 x 10 mg) PO TID PRN 07/07/24 07/15/24 Rx abdominal discomfort #20 CAPSULES doxepin 10 mg capsule 10 mg PO QHS PRN sleep #30 caps 07/07/24 07/15/24 Rx ondansetron 4 mg disintegrating 4 mg PO Q8H PRN PRN Nausea #15 tabs 07/07/24 07/15/24 Rx tablet linaclotide 145 mcg capsule 145 mcg PO .COMPLEX #90 caps 07/15/24 07/15/24 Rx (Linzess) sodium sul 1.479 gram-potas ch See Rx Instructions PO .COMPLEX 07/15/24 07/15/24 Rx 0.188 gram-magnes sul 0.225 gram #24 tabs tablet (Sutab) sucralfate 1 gram tablet (Carafate) 1 g PO .COMPLEX #90 tabs 07/15/24 07/15/24 Rx vonoprazan 20 mg tablet (Voquezna) 20 mg PO QDAY #30 tabs 07/15/24 07/15/24 Rx Nurse's Note: Has been vomiting blood since high school. Stomach pain since 3 years old. Not able to burp, doesn't have the reflex. Bloats after every meal. Gets hives after eating and hot and cold. [facility] Medical History (Updated 07/15/24 @ 08:45 by Lo Russel, [employer]INCIPAL-C) Abdominal pain Constipation URI (upper respiratory infection) Sprain of left foot Left ankle sprain ADHD Generalized anxiety disorder Depression BPPV (benign paroxysmal positional vertigo) Angioedema Earache, left Contraceptive management Sinusitis, acute, maxillary Acute otitis media, right Encounter for screening for COVID-19 GERD (gastroesophageal reflux disease) Anxiety Asthma Environmental allergies Family History Father Afib Other Breast cancer Hypertension Thyroid disorder Social History Smoking Status: Never smoker alcohol intake: current alcohol intake frequency: a few times a week Alcohol type: wine substance use type: does not use what type of physical activity do you participate in: none HPI HPI Chief Complaint: nausea, vomiting, constipation Details: 19y/o female presents for consultation post ED visit for abdominal pain. CBC. CMP and UA were unremarkable in the ED. ABD x-ray revealed moderate gas. Pelvic US was unremarkable. - seen in the office with mom today - pain was sharp and stabbing, sudden onset, generalized, but started in lower abdomen- changed to dull stabbing pain in ED - constant pain - she was having diarrhea prior to pain - this is unusual for her - she took a magnesium liquid liquid yesterday - took all night to work - finds that she has to take something to have a BM - denies any family h/o IBD - reports a family h/o IBS - she is seen in the office today with her mom - reports she wakes up every day and something else wrong - she has quite a bit of anxiety - c/o chronic fatigue - reports everyone thinks it is all in her head - feels like providers do not listen to her - reports she has been suffering with pain since she was a child - c/o pain every where, joints ache constantly - has never seen rheumatology - reports she breaks out in hives after every meal and they itch terribly - food allergy panel - negative but reports she knows she is allergic to pineapple - she is not taking Senna - ED prescribed Ondansetron, dicyclomine, (more content not included)... Normal [facility] Abd Inc Decub and/or Erecton 07-07-2024 Abd Inc Decub and/or Erect [facility] Imaging Services [address] [place] [address] Abd Inc Decub and/or Erect MR#: [id number] Acct: [id number] Name: NNOA ANTONIO Rep #: [id number] : 2005 F 19 From: Mariah Griffin MD PCP: Gini Rodríguez DO Status: REG ER Study: Abd Inc Decub and/or Erect Date of Exam: 07/07 Exam# [id number] Ordering Dr: Monserrat Baeza DO :[id number] EXAM: XR ABDOMEN, 2 VIEWS CLINICAL INDICATION: abd pain TECHNIQUE: Frontal view of the abdomen/pelvis with upright view of the abdomen. COMPARISON: January 27, 2024 chest radiograph. FINDINGS: LOWER THORAX: No acute pathology. INTRAPERITONEAL SPACE: No free air. GASTROINTESTINAL TRACT: Moderate gas in the colon. Mild gastric air bubble. Minimal if any small bowel gas. Mild intracolonic stool. Non-obstructive. No bowel or stomach distention. ORGANS: Unremarkable as visualized. No organomegaly. No abnormal calcifications. BONES/JOINTS: A lucency consistent with tampon is noted over the lower pelvis. SOFT TISSUES: No acute pathology. OTHER FINDINGS: No visible appendicolith. RAD/Abd Inc Decub and/or Erect IMPRESSION: Nonspecific findings. Moderate colon gas. No suspicious dilated small bowel. Electronically Signed: Mariah Griffin MD at 20:01 EST , CC: Dr. Monserrat Baeza DO; Gini Rodríguez DO Transmission Design Engineer: Signed Normal [facility] CBC W/Diff, Automatedon 06-12 Absolute Lymph 3.27 X10 3/uL Normal 0.83-4.51 [facility] Comment on above: Performed By: #### L 100.0100, L700.6800, L500.4050, L503.6005 ####[facility] [address] [place], [address] Absolute Neut 5.1 X10 3/uL Normal 2.0-7.7 [facility] Comment on above: Performed By: #### L 100.0100, L700.6800, L500.4050, L503.6005 ####[facility] [address] [place], [address] Basophils/100 WBC (Bld) 0.3 % Normal 0-1 [facility] Comment on above: Performed By: #### L 100.0100, L700.6800, L500.4050, L503.6005 ####[facility] [address] [place], [address] Eosinophils/100 WBC (Bld) 0.7 % Normal 0-5 [facility] Comment on above: Performed By: #### L 100.0100, L700.6800, L500.4050, L503.6005 ####[facility] [address] [place], [address] Erythrocyte distribution width (RBC) [Ratio] 14.0 % Normal 11.6-14.6 [facility] Comment on above: Performed By: #### L 100.0100, L700.6800, L500.4050, L503.6005 ####[facility] [address] [place], [address] Hematocrit (Bld) [Volume fraction] 37.7 % Normal 37-47 [facility] Comment on above: Performed By: #### L 100.0100, L700.6800, L500.4050, L503.6005 ####[facility] [address] [place], [address] Hemoglobin (Bld) [Mass/Vol] 12.2 g/dL Normal 12.0-15.0 [facility] Comment on above: Performed By: #### L 100.0100, L700.6800, L500.4050, L503.6005 ####[facility] [address] [place], [address] IG% 0.300 Normal 0.0-0.9 [facility] Comment on above: Result Comment: IG% - Immature Granulocytes (promyelocytes, myelocytes and metamyelocytes) > 1% indicates that a LEFT SHIFT is Present. Performed By: #### L 100.0100, L700.6800, L500.4050, L503.6005 ####[facility] [address] [place], [address] Lymphocytes/100 WBC (Bld) 36.3 % Normal 19-41 [facility] Comment on above: Performed By: #### L 100.0100, L700.6800, L500.4050, L503.6005 ####[facility] [address] [place], [address] MCH (RBC) [Entitic mass] 26.7 pg Low 27.0-32.0 [facility] Comment on above: Performed By: #### L 100.0100, L700.6800, L500.4050, L503.6005 ####[facility] [address] [place], [address] MCHC (RBC) [Mass/Vol] 32.4 g/dL Normal 32-36 [facility] Comment on above: Performed By: #### L 100.0100, L700.6800, L500.4050, L503.6005 ####[facility] [address] [place], [address] MCV (RBC) [Entitic vol] 82.5 fL Normal 81-99 [facility] Comment on above: Performed By: #### L 100.0100, L700.6800, L500.4050, L503.6005 ####[facility] [address] [place], [address] Monocytes/100 WBC (Bld) 5.9 % Normal 0-10 [facility] Comment on above: Performed By: #### L 100.0100, L700.6800, L500.4050, L503.6005 ####[facility] [address] [place], [address] Neutrophils/100 WBC (Bld) 56.5 % Normal 47-70 [facility] Comment on above: Performed By: #### L 100.0100, L700.6800, L500.4050, L503.6005 ####[facility] [address] [place], [address] Nucleated RBC (Bld) [#/Vol] 0 10*3/uL Normal 0-5 [facility] Comment on above: Performed By: #### L 100.0100, L700.6800, L500.4050, L503.6005 ####[facility] [address] [place], [address] Platelet mean volume (Bld) [Entitic vol] 8.8 fL Normal 6.2-12.0 [facility] Comment on above: Performed By: #### L 100.0100, L700.6800, L500.4050, L503.6005 ####[facility] [address] [place], [address] Platelets (Bld) [#/Vol] 343 10*3/uL Normal 150-450 [facility] Comment on above: Performed By: #### L 100.0100, L700.6800, L500.4050, L503.6005 ####[facility] [address] [place], [address] RBC (Bld) [#/Vol] 4.57 10*6/uL Normal 4.2-5.4 [facility] Comment on above: Performed By: #### L 100.0100, L700.6800, L500.4050, L503.6005 ####[facility] [address] [place], [address] RDW SD 42.5 fl Normal 35.1-43.9 [facility] Comment on above: Performed By: #### L 100.0100, L700.6800, L500.4050, L503.6005 ####[facility] [address] [place], [address] WBC (Bld) [#/Vol] 9.0 10*3/uL Normal 4.4-11.0 [facility] Comment on above: Performed By: #### L 100.0100, L700.6800, L500.4050, L503.6005 ####[facility] [address] [place], [address] Comprehensive Metabolic [facility] 07-07-2024 Albumin [Mass/Vol] 3.6 g/dL Normal 3.2-5.0 [facility] Comment on above: Performed By: #### L 100.0100, L700.6800, L500.4050, L503.6005 ####[facility] [address] [place], [address] Albumin/Globulin [Mass ratio] 0.9 {ratio} Normal 0.9-2.4 [facility] Comment on above: Performed By: #### L 100.0100, L700.6800, L500.4050, L503.6005 ####[facility] [address] [place], [address] ALK P 63 U/L Normal 45-117 [facility] Comment on above: Performed By: #### L 100.0100, L700.6800, L500.4050, L503.6005 ####[facility] [address] [place], [address] ALT [Catalytic activity/Vol] 18 U/L Normal 13-56 [facility] Comment on above: Performed By: #### L 100.0100, L700.6800, L500.4050, L503.6005 ####[facility] [address] [place], [address] AST [Catalytic activity/Vol] 14 U/L Low 15-37 [facility] Comment on above: Performed By: #### L 100.0100, L700.6800, L500.4050, L503.6005 ####[facility] [address] [place], [address] Bilirubin [Mass/Vol] 0.60 mg/dL Normal 0.20-1.00 [facility] Comment on above: Result Comment: For patients on eltrombopag therapy, use of Dimension [place] TBIL is not recommended. Performed By: #### L 100.0100, L700.6800, L500.4050, L503.6005 ####[facility] [address] [place], [address] BUN/CRE 20.2 RATIO High 10-20 [facility] Comment on above: Performed By: #### L 100.0100, L700.6800, L500.4050, L503.6005 ####[facility] [address] [place], [address] CA,Total 9.1 mg/dL Normal 8.5-10.1 [facility] Comment on above: Performed By: #### L 100.0100, L700.6800, L500.4050, L503.6005 ####[facility] [address] [place], [address] Chloride [Moles/Vol] 106 mmol/L Normal 98-107 [facility] Comment on above: Performed By: #### L 100.0100, L700.6800, L500.4050, L503.6005 ####[facility] [address] [place], [address] CO2 [Moles/Vol] 26.0 mmol/L Normal 21.0-32.0 [facility] Comment on above: Performed By: #### L 100.0100, L700.6800, L500.4050, L503.6005 ####[facility] [address] [place], [address] Creatinine [Mass/Vol] 0.64 mg/dL Normal 0.55-1.02 [facility] Comment on above: Result Comment: The validity of the calculated GFR GFRAA in patients over 70 years has not been determined. Clinical correlation is essential. Performed By: #### L 100.0100, L700.6800, L500.4050, L503.6005 ####[facility] [address] [place], [address] ECRCL 123.57 ml/min Normal [facility] Comment on above: Performed By: #### L 100.0100, L700.6800, L500.4050, L503.6005 ####[facility] [address] [place], [address] EST GFR - AA 150 mL/min Normal >60 [facility] Comment on above: Result Comment: Afri can [place] GFR Calc Performed By: #### L 100.0100, L700.6800, L500.4050, L503.6005 ####[facility] [address] [place], [address] GAP 6 Normal 5-15 [facility] Comment on above: Performed By: #### L 100.0100, L700.6800, L500.4050, L503.6005 ####[facility] [address] [place], [address] GFR/1.73 sq M.predicted among non-blacks MDRD (S/P/Bld) [Vol rate/Area] 124 mL/min/{1.73_m2} Normal >60 [facility] Comment on above: Result Comment: Non- GFR Calc Performed By: #### L 100.0100, L700.6800, L500.4050, L503.6005 ####[facility] [address] [place], [address] Globulin (S) [Mass/Vol] 3.8 g/dL Normal 2.2-4.2 [facility] Comment on above: Performed By: #### L 100.0100, L700.6800, L500.4050, L503.6005 ####[facility] [address] [place], [address] Glucose [Mass/Vol] 95 mg/dL Normal 74-106 [facility] Comment on above: Performed By: #### L 100.0100, L700.6800, L500.4050, L503.6005 ####[facility] [address] [place], [address] Potassium [Moles/Vol] 3.5 mmol/L Normal 3.5-5.1 [facility] Comment on above: Performed By: #### L 100.0100, L700.6800, L500.4050, L503.6005 ####[facility] [address] [place], [place], [address] Sodium [Moles/Vol] 138 mmol/L Normal 136-145 [facility] Comment on above: Performed By: #### L 100.0100, L700.6800, L500.4050, L503.6005 ####[facility] [id number] [place], [address] T PROT 7.4 g/dL Normal 6.4-8.2 [facility] Comment on above: Performed By: #### L 100.0100, L700.6800, L500.4050, L503.6005 ####[facility] [address] [place], [address] Urea nitrogen [Mass/Vol] 13 mg/dL Normal 7-18 [facility] Comment on above: Performed By: #### L 100.0100, L700.6800, L500.4050, L503.6005 ####[facility] [address] [place], [address] Emergency Department Summary on 07-07-2024 Emergency Department Summary [facility] Medical Records Department [address] [place] [address] Emergency Department Summary 07/07/24 MR#: [id number] Acct: [id number] Name: NONA ANTONIO Rep #: [id number] : 2005 19 From: Monserrat Baeza DO PCP: Gini Rodríguez DO Status:DEP ER Location: ED HPI History of Present Illness Chief Complaint: Nausea/Vomiting Informant: patient Narrative Narrative: Patient is a 19-year-old female with history of generalized anxiety disorder, ADHD and GERD presenting for abdominal pain. Patient states that started rather suddenly about an hour ago. She states for she had pain in her epigastric region but it quickly radiated down her right lower quadrant. She notes that she was drinking a smoothie when this started. She notes it radiates slightly from her right lower quadrant to her suprapubic region. She had a bowel movement about 40 minutes ago that was diarrhea. She thought that maybe she had a bowel movement her pain would help but it is not. The pain has been constant but oscillates in intensity. She notes it is worse if she sits upright or takes a deep breath. She does have a history of ovarian cysts and is also been having abnormal menstrual cycles. She states has been having menstrual bleeding for the past 4 weeks. She states she follows with [facility] and they wanted to do a repeat pelvic ultrasound but she has not done it. She states she did vomit twice and it looked like brown mashed potatoes. She is worried there is blood in there. She has previously been on Protonix but ran out about 3 weeks ago has not been taking it. She denies any black or blood in her stool. She notes that she did just get the medication refilled today. Did not take any of her symptoms prior to arrival. No other complaints or concerns reported at this time. She has had prior endoscopy but never had any abdominal surgeries. 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 She denies any GI bugs going around at this time. She denies any sick contacts. [facility] Medical History URI (upper respiratory infection) Sprain of left foot Left ankle sprain ADHD Generalized anxiety disorder Depression BPPV (benign paroxysmal positional vertigo) Angioedema Earache, left Contraceptive management Sinusitis, acute, maxillary Acute otitis media, right Abdominal pain Encounter for screening for COVID-19 GERD (gastroesophageal reflux disease) Anxiety Asthma Environmental allergies Home Medications ???Medication ???Instructions ???Recorded ???Last Taken ???Type clonazepam 0.5 mg tablet 0.5 mg PO DAILY PRN anxiety 07/17/23 Unknown History pantoprazole 40 mg tablet,delayed 40 mg PO BID 11/11/23 Unknown History release propranolol 20 mg tablet 20 mg PO BID 11/11/23 Unknown History escitalopram oxalate 20 mg tablet 20 mg PO DAILY 30 days #30 tabs 02/25/24 Unknown Rx diphenhydramine HCl 25 mg capsule 25 mg PO TID PRN 03/25/24 Unknown History (Benadryl) viloxazine 200 mg capsule,extended 200 mg PO DAILY #30 caps 04/13/24 Unknown Rx release 24 hr drospirenone 3 mg-ethinyl 1 tab PO QDAY #84 tabs 06/07/24 Unknown Rx estradiol 0.02 mg tablet (Jaimie (28)) dicyclomine 10 mg capsule 20 mg (2 x 10 mg) PO TID PRN 07/07/24 Unknown Rx abdominal discomfort #20 CAPSULES doxepin 10 mg capsule 10 mg PO QHS PRN sleep #30 caps 07/07/24 Unknown Rx ondansetron 4 mg disintegrating 4 mg PO Q8H PRN PRN Nausea #15 tabs 07/07/24 Unknown Rx tablet polyethylene glycol 3350 17 17 g PO DAILY #119 grams 07/07/24 Unknown Rx gram/dose oral powder (Miralax) sennosides 8.6 mg capsule (senna) 8.6 mg PO BID PRN constipation #10 07/07/24 Unknown Rx caps simethicone 80 mg chewable tablet 80 mg PO TID PRN abdominal 07/07/24 Unknown Rx distention #20 tabs Allergy/AdvReac Type Severity Reaction Status Date / Time cyclobenzaprine (From Allergy Hives Verified 07/07/24 15:37 Flexeril) Sulfa (Sulfonamide Allergy Hives Verified 07/07/24 15:37 Antibiotics) sulfamethoxazole (From Allergy Hives Verified 07/07/24 15:37 Bactrim) trimethoprim (From Bactrim) Allergy Hives Verified 07/07/24 15:37 amoxicillin (From Augmentin) AdvReac Diarrhea Verified 07/07/24 15:37 clavulanic acid (From AdvReac Diarrhea Verified 07/07/24 15:37 Augmentin) Family History Father Afib Other Breast cancer Hypertension Thyroid disorder Social History Smoking Status: Never smoker alcohol intake: current alcohol intake frequency: a few times a week Alcohol type: wine substance use type: does not use what type of physical activity do you participate in: none ROS ROS ED Constitut (more content not included)... Normal [facility] Lactic Acidon 07-07-2024 Lactate [Moles/Vol] 1.8 mmol/L Normal 0.4-1.9 [facility] Comment on above: Order Comment: Y Performed By: #### L 100.0100, L700.6800, L500.4050, L503.6005 ####[facility] [id number] [place], [place], [id number] Pelvic (Non )on 06-12 Pelvic (Non ) [facility] Imaging Services [address] [place], [place] [id number] Pelvic (Non ) MR#: [id number] Acct: [id number] Name: NONA ANTONIO Rep #: [id number] : 2005 F 19 From: Mariah Griffin MD PCP: Gini Rodríguez DO Status: REG ER Study: Pelvic (Non ) Date of Exam: 07/07/24 Exam# [id number] Ordering Dr: Monserrat Baeza DO :[id number] EXAM: US PELVIS TRANSABDOMINAL, COMPLETE CLINICAL INDICATION: RLQ pain, hx of cyst TECHNIQUE: Transabdominal pelvic ultrasound was performed with grayscale and color Doppler imaging. COMPARISON: April 06, 2024. FINDINGS: UTERUS/CERVIX: 8 cm x 4.7 cm x 2.4 cm. Anteverted. There is no uterine mass. Normal 1.6 mm endometrial stripe thickness. RIGHT OVARY: Unremarkable. 2.7 cm x 1.8 cm x 2.2 cm. Non-enlarged, normal echogenicity. Blood flow is present in the right ovary. LEFT OVARY: Unremarkable. 3.7 cm x 2.3 cm x 1.5 cm Non-enlarged, normal echogenicity. Blood flow is present in the left ovary. FREE FLUID: None. BLADDER: Unremarkable as visualized. 9.3 cm x 7.6 cm x 9.1 cm. Wall is normal thickness for degree of distention. Calculated volume 337 cc. US/Pelvic (Non ) IMPRESSION: Unremarkable pelvic ultrasound. Electronically Signed: Mariah Griffin MD at 17:15 EST , CC: Dr. Monserrat Baeza DO; Gini Rodríguez DO Transmission Design Engineer: Signed [facility] ,Serum,hCG Quali.on 07-07-2024 HCG, SERUM QUAL Negative Normal [facility] Comment on above: Performed By: #### L 100.0100, L700.6800, L500.4050, L503.6005 ####[facility] [address] [place], [address] Urinalysis, Completeon 07-07 EPI,SQUAMOUS 0-5 SEEN Normal 5-10 [facility] Comment on above: Order Comment: CLEAN CATCH Performed By: #### L 400.0001 #### [facility] [address] [place], [address] BACTERIA 0 SEEN Normal None Seen [facility] Comment on above: Order Comment: CLEAN CATCH Performed By: #### L 400.0001 #### [facility] [address] [place], [address] Mucus Ql (Urine sed) 0 SEEN Normal [facility] Comment on above: Order Comment: CLEAN CATCH Performed By: #### L 400.0001 #### [facility] [address] [place], [address] RBC 0 SEEN Normal 0-5 [facility] Comment on above: Order Comment: CLEAN CATCH Performed By: #### L 400.0001 #### [facility] [address] [place], [address] WBC 0 SEEN Normal 0-5 [facility] Comment on above: Order Comment: CLEAN CATCH Performed By: #### L 400.0001 #### [facility] [address] [place], [address] Urgent Care Visit Reporton 0 05-02-2024 Urgent Care Visit Report [facility] [address], [address] [place] [address] OFFICE VISIT Date of Service: 05/02/24 MR#: [id number] Acct: [id number] Name: NONA ANTONIO Rep #: [id number] : 2005 Provider: JEANNINE english Age/Sex: 19/F Location: [facility] Status: Signed Intake Vital Signs 04/08/24 16:29 05/02/24 12:27 Height 5 ft 2 in 5 ft 2 in Weight: 136 lb BMI 24.8 BP 102/71 108/60 Blood Pressure Location Rt brachial Lt brachial Position Sitting Sitting Respiration 16 15 Pulse 74 92 Pulse Source Monitor NIBP Temp 98.4 F Temp Source Temporal Pulse Oximetry (%) 97 97 Oxygen Delivery Method room air room air Intake Visit Reasons: UPSET STOMACH/SORE THROAT/COUGH Chief Complaint: dizzy, achy, cough, ST Office Automation Clerk Required: No Is patient in pain?: Yes Allergies cyclobenzaprine (From Flexeril) Allergy (Verified 05/02/24 12:45) Hives Sulfa (Sulfonamide Antibiotics) Allergy (Verified 05/02/24 12:45) Hives sulfamethoxazole (From Bactrim) Allergy (Verified 05/02/24 12:45) Hives trimethoprim (From Bactrim) Allergy (Verified 05/02/24 12:45) Hives amoxicillin (From Augmentin) Adverse Reaction (Verified 05/02/24 12:45) Diarrhea clavulanic acid (From Augmentin) Adverse Reaction (Verified 05/02/24 12:45) Diarrhea Is last menstrual period known: No Post menopausal: No Patient : No Have you fallen in the past year?: No Nurse's Note: dizzy, achy, cough, ST x 3 days. PFS Medical History (Updated 05/02/24 @ 13:21 by Kevin Ang [employer]INCIPAL, [employer] PRINCIPAL-C) URI (upper respiratory infection) Sprain of left foot Left ankle sprain ADHD Generalized anxiety disorder Depression BPPV (benign paroxysmal positional vertigo) Angioedema Earache, left Contraceptive management Sinusitis, acute, maxillary Acute otitis media, right Abdominal pain Encounter for screening for COVID-19 GERD (gastroesophageal reflux disease) Anxiety Asthma Environmental allergies Family History Father Afib Other Breast cancer Hypertension Thyroid disorder Social History (Updated 04/08/24 @ 16:32 by Andreea Raphael) Smoking Status: Never smoker alcohol intake: current alcohol intake frequency: a few times a week Alcohol type: wine substance use type: does not use what type of physical activity do you participate in: none HPI HPI Chief Complaint: dizzy, achy, cough, ST Details: NONA ANTONIO, is a 19 F who presents to the office today for concerns regarding dizziness, achiness, cough, and sore throat for 3 days. COVID-19 testing prior to evaluation was negative. This is improved today compared to the last two days. She denies sick contacts she is aware. She also presents for work employee physical. This was not completed due to not having complete vaccination record. She also asks for a flu vaccine. This was not given due to feeling ill. She also requests a work notice. ROS Const Constitutional: Positive for body ache, headache(s) (intermittent) and change in appetite (reduce food intake); No chills, fatigue or fever(s) Eyes Eyes: Positive for change in vision (Two days ago); No blurry vision, double vision, irritation, discharge, vision loss, dry eyes, bulging eyes, floaters, visual disturbances, eye pain, Light sensitivity, spots in vision, tunnel vision or other ENT ENT: Positive for ear or mastoid pain (yesterday), dizziness/vertigo, balance problems, nasal congestion (at night), post nasal drip, headache(s) (intermittent), sore throat and other (states teeth itch); No abnormal hearing, ear discharge, ear pressure, hearing loss, tinnitus, nosebleed/epistaxis, nose pain, sinus pressure, sinus pain, nasal discharge, facial pain, dental pain, difficulty swallowing, bad breath, hoarseness, lip swelling, mouth lesions, mouth pain, neck pain, tongue swelling or throat swelling Resp Respiratory: Positive for cough Cough: Yes non-productive; No change in phlegm color, chest congestion, hemoptysis, pain on inspiration, shortness of breath, pain with cough, stridor or wheezing Cardio Cardiology: No chest pain at rest, chest pain with exertion, shortness of breath,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 Allergy Reaction AUGMENTIN (AMOXICILLIN-POT CLAVUL*04/01/2008 6 - Diarrhea Comments: Upset stomach SULFAMETHOXAZOLE 08/17/2019 4 - Hives FLEXERIL (CYCLOBENZAPRINE) 07/21/2020 4 - Hives Date Reviewed: 07/09/2022 Reviewed by: Gayathri Dillon Ma - Fully Assessed Reason for Visit: cough and fever [Other] Cmt: X 6 day's Primary Visit Diagnosis:Acute cough [R05.1] Order(s):XR CHEST 2V FRONTAL/LAT [9534933] Order #: [id number] FUTURE albuterol HFA (PROVENTIL HFA, VENTOLIN HFA) 90 mcg/actuation inhalerInhale 2 Puffs as instructed every 4 hours as needed for wheezing/shortness of breath.Disp: 1 EachRfl: 0 Prescriptions as of 07/10/2022 - albuterol HFA (PROVENTIL HFA, VENTOLIN HFA) 90 mcg/actuation inhaler Inhale 2 Puffs as instructed every 4 hours as needed for wheezing/shortness of breath. - esomeprazole magnesium (NEXIUM 24HR ORAL) Take by mouth once daily. - buPROPion XL (WELLBUTRIN XL) 150 mg 24 hr tablet 150 tablets. - sertraline (ZOLOFT) 100 mg tablet Take 1.5 mg by mouth. 150 mg - clonazePAM (KLONOPIN) 0.5 mg tablet Take 0.5 mg by mouth twice daily as needed. 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 Route: INHALATION Sig: Inhale 2 Puffs as instructed every 4 hours as needed for wheezing/shortness of breath. Medications Discontinued During This Encounter Prescriptions - guanFACINE (INTUNIV) 1 mg ER 24 hr tablet(s) (Discontinued) Take 2 mg by mouth once daily. Encounter Status:Closed by MICKY [facility]INO [facility]10/22 [facility] NONA ANTONIO ([id number]) 1 F Date Time Provider Department 07/09/22 MICKY GAMINO PEDS During your visit today, we recorded the following information about you: Joy Tran RN 07/09/2022 12:49 PM Signed Patient notified and voiced understanding of below as directed by Dr. Gamino. Joy Gamino MD [facility] Peds Third Floor Pool Let patient know that chest x-ray Was room by radiology as normal. Should start inhaler as directed. Patient?s cell phone number is listed under mobile in the chart Allergies As of Date: 07/09/2022 Noted Allergy Reaction AUGMENTIN (AMOXICILLIN-POT CLAVUL*04/01/2008 6 - Diarrhea Comments: Upset stomach SULFAMETHOXAZOLE 08/17/2019 4 - Hives FLEXERIL (CYCLOBENZAPRINE) 07/21/2020 4 - Hives Date Reviewed: 07/09/2022 Reviewed by: Gayathri Dillon Ma - Fully Assessed Reason for Visit: Results [95] Prescriptions as of 07/09/2022 - albuterol HFA (PROVENTIL HFA, VENTOLIN HFA) 90 mcg/actuation inhaler Inhale 2 Puffs as instructed every 4 hours as needed for wheezing/shortness of breath. - esomeprazole magnesium (NEXIUM 24HR ORAL) Take by mouth once daily. - buPROPion XL (WELLBUTRIN XL) 150 mg 24 hr tablet 150 tablets. - sertraline (ZOLOFT) 100 mg tablet Take 1.5 mg by mouth. 150 mg - clonazePAM (KLONOPIN) 0.5 mg tablet Take 0.5 mg by mouth twice daily as needed. 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 Lungs and pleura: No consolidation. No lung mass. No pleural effusion. No pneumothorax. Cardiomediastinal silhouette: Normal cardiomediastinal silhouette. Bones and soft tissues: Unremarkable. IMPRESSION: No acute radiographic abnormality. Transmission Design Engineer: PSCB Transcribe Date/Time: Jul 09 2022 12:04P Dictated by : EDE BARRY MD This examination was interpreted and the report reviewed and electronically signed by: EDE BARRY MD on Jul 09 2022 12:04PM EST [id number] Normal [facility] XR Chest PA and Lateralon IMPRESSION: No acute radiographic abnormality. Transmission Design Engineer: LEONIDAS Transcribe Date/Time: Jul 09 2022 12:04P Dictated by : EDE BARRY MD This examination was interpreted and the report reviewed and electronically signed by: EDE BARRY MD on Jul 09 2022 12:04PM [facility] DIVISION OF RADIOLOGY * * *Final Report* * * DATE OF EXAM: Jul 09 2022 11:35AM WOX 5291 - XR CHEST 2V FRONTAL/LAT / PROCEDURE REASON: Acute cough * * * * Physician Interpretation * * * * EXAMINATION: CHEST RADIOGRAPH (2 VIEW FRONTAL & LATERAL) CLINICAL HISTORY: Acute cough MQ: XC2_6 EXAM DATE/TIME: 07/09/2022 11:35 AM COMPARISON: 08/31/2019 RESULT: Lines, tubes, and devices: None. Lungs and pleura: No consolidation. No lung mass. No pleural effusion. No pneumothorax. Cardiomediastinal silhouette: Normal cardiomediastinal silhouette. Bones and soft tissues: Unremarkable. DIVISION OF RADIOLOGY Provider, [facility] - 07/09/2022 * * *Final Report* * * DATE OF EXAM: Jul 09 2022 11:35AM WOX 5291 - XR CHEST 2V FRONTAL/LAT / PROCEDURE REASON: Acute cough * * * * Physician Interpretation * * * * EXAMINATION: CHEST RADIOGRAPH (2 VIEW FRONTAL & LATERAL) CLINICAL HISTORY: Acute cough MQ: XC2_6 EXAM DATE/TIME: 07/09/2022 11:35 AM COMPARISON: 08/31/2019 RESULT: Lines, tubes, and devices: None. Lungs and pleura: No consolidation. No lung mass. No pleural effusion. No pneumothorax. Cardiomediastinal silhouette: Normal cardiomediastinal silhouette. Bones and soft tissues: Unremarkable. IMPRESSION IMPRESSION: No acute radiographic abnormality. Transmission Design Engineer: LEONIDAS Transcribe Date/Time: Jul 09 2022 12:04P Dictated by : EDE BARRY MD This examination was interpreted and the report reviewed and electronically signed by: EDE BARRY MD on Jul 09 2022 12:04PM [facility] Radiology Study observation (narrative) [facility] XR Chest PA and LateralOrder ed By: Cc Provider on 07-09-2022 [facility] Culture, urineOrdered By: Shun Bhardwaj on 07-07-2022 Bacteria identified Cx Nom (U) Culture exhibits no growth. [facility] Basophil percentageOrdered B y: Dane Bhardwaj on 07-05-2022 Basophil percentage 0-5 SEEN /hpf 0-5 [facility] Bilirubin Test strip Ql (U)O rdered By: Dane Bhardwaj on 07-05-2022 Bilirubin Ql (U) 1 mg/dL Negative [facility] Comment on above: COLOR OF URINE MAY A FFECT DIPSTICK RESULTS. Ketones Test strip Ql (U)Ord ered By: Dane Bhardwaj on 07-05-2022 Ketones Ql (U) 5 mg/dl Negative [facility] Laboratory - Chemistry and C hemistry - challengeon 07-05-2022 HCG ( test) Ql (U) Negative [facility] Bilirubin Ql (U) Small (1+) [facility] Glucose Ql (U) Negative [facility] Ketones Ql (U) Negative [facility] pH (U) 6.5 [pH] [facility] Specific gravity (U) [Rel density] 1.005 [facility] Urobilinogen (U) [Mass/Vol] 0.5906030 mg/dL [facility] - Hematology and Cell countson 07-05-2022 Hemoglobin Ql (U) Small [facility] - Microbiology an d Antimicrobial susceptibilityon 07-05-2022 SARS-CoV-2 (COVID-19) RNA [place]+probe Ql (Unsp spec) Not detected [facility] - Specimen inform ationon 07-05-2022 Clarity (U) Clear [facility] Color (U) MISHA [facility] - Urinalysison Nitrite Ql (U) Negative [facility] Protein Ql (U) Trace [facility] Mucus LM Ql (Urine sed)Order ed By: Dane Bhardwaj on 07-05-2022 Mucus Ql (Urine sed) 4+ /hpf [facility] Nitrite Test strip Ql (U)Ord ered By: Dane Bhardwaj on 07-05-2022 Nitrite Ql (U) Negative Negative [facility] No Panel Informationon 07-05 Influenza Types A,B Rapid (Clinic) Not detected [facility] Urine Leukocytes Negatve [facility] Protein Test strip Ql (U)Ord ered By: Dane Bhardwaj on 07-05-2022 Protein Ql (U) 30 mg/dl Negative [facility] Squamous epithelial cells de tection in urine sediment by light microscopyOrdered By: Dane Bhardwaj on 07-05-2022 Epithelial cells.squamous LM Ql (Urine sed) 0 SEEN /hpf 5-10 [facility] Urine blood detectionOrdered By: Dane Bhardwaj on 07-05-2022 RBC Ql (U) Negative Negative [facility] RBC Ql (U) 0 SEEN /hpf 0-5 [facility] Urine clarityOrdered By: Landon Bhardwaj on 07-05-2022 Clarity (U) Clear Clear [facility] Urine color determinationOrd ered By: Dane Bhardwaj on 07-05-2022 Color (U) Yellow Yellow [facility] Urine glucose detectionOrder ed By: Dane Bhardwaj on 07-05-2022 Glucose Ql (U) Normal mg/dl Normal [facility] Urine leukocyte esterase det ection by dipstickOrdered By: Dane Bhardwaj on 07-05-2022 Leukocyte esterase Test strip Ql (U) 25 /ul Negative [facility] Urine pHOrdered By: Dane love on 07-05-2022 pH (U) 6.0 [pH] 5.0 - 8.0 [facility] Urine sediment bacteria coun t by microscopy (number/high power field)Ordered By: Dane Bhardwaj on 07-05-2022 Bacteria LM.HPF (Urine sed) [#/Area] 2 /[HPF] None Seen [facility] Urine specific gravity measu rementOrdered By: Dane Bhardwaj on 07-05-2022 Specific gravity (U) [Rel density] 1.020 1.002-1.03 0 [facility] Urobilinogen Auto test strip Ql (U)Ordered By: Dane Bhardwaj on 07-05-2022 Urobilinogen Ql (U) 1 mg/dl Normal [facility] Absolute lymphocyte counton 04-30-2022 Lymphocytes Auto (Unsp spec) [#/Vol] 2.38 10*3/uL 0.83-4.51 [facility] Work Phone: Basophil percentageon 2021 Basophil percentage 25-50 SEEN /hpf 0-5 [facility] Work Phone: Basophils/100 WBC (Bld) 0.1 % 0-1 [facility] Work Phone: Chloride [Moles/Vol] 106 mmol/L 98-107 [facility]: Eosinophils/100 WBC (Bld) 0.3 % 0-5 [facility] Work Phone: Glucose [Mass/Vol] 86 mg/dL 74-106 [facility] Work Phone: Neutrophils (Bld) [#/Vol] 5.1 10*3/uL 2.0-7.7 [facility] Work Phone: Neutrophils/100 WBC (Bld) 63.1 % 47-70 [facility] Work Phone: Potassium [Moles/Vol] 3.9 mmol/L 3.5-5.1 [facility]: Sodium [Moles/Vol] 141 mmol/L 136-145 [facility] Work Phone: WBC (Bld) [#/Vol] 8.0 10*3/uL 4.4-11.0 [facility] Work Phone: Beta hCG serum qualon 2021 Beta HCG ( test) Ql Negative [facility] Work Phone: Bilirubin Test strip Ql (U)o n 04-30-2022 Bilirubin Ql (U) Negative Negative [facility] Work Phone: Blood erythrocytes count (nu mber/volume)on 04-30-2022 RBC (Bld) [#/Vol] 5.02 10*6/uL 4.2-5.4 [facility] Work Phone: Blood hemoglobin measurement (mass/volume)on 04-30-2022 Hemoglobin (Bld) [Mass/Vol] 14.2 g/dL 12.0-15.0 [facility] Work Phone: Blood lymphocytes/100 leukoc yteson 04-30-2022 Lymphocytes/100 WBC (Bld) 29.8 % 19-41 [facility] Work Phone: Blood monocytes/100 leukocyt eson 04-30-2022 Monocytes/100 WBC (Bld) 6.4 % 0-10 [facility] Work Phone: Blood platelet mean volumeon 04-30-2022 Platelet mean volume (Bld) [Entitic vol] 8.8 fL 6.2-12.0 [facility] Work Phone: Determination of erythrocyte mean corpuscular volume (MCV)on 04-30-2022 MCV (RBC) [Entitic vol] 84.1 fL 81-99 [facility] Work Phone: [phone] Hematocrit Auto (Bld) [Volum e fraction]on 04-30-2022 Hematocrit (Bld) [Volume fraction] 42.2 % 37-47 [facility] Work Phone: [phone] Ketones Test strip Ql (U)on 04-30-2022 Ketones Ql (U) Negative Negative [facility] Work Phone: [phone] Laboratory - Chemistry and C hemistry - challengeon 04-30-2022 CO2 [Moles/Vol] 27.0 mmol/L 21.0-32.0 [facility] Work Phone: [phone] Urea nitrogen/Creatinine [Mass ratio] 13.7 mg/mg - [facility] Work Phone: Laboratory - Hematology and Cell countson 04-30-2022 Erythrocyte distribution width (RBC) [Entitic vol] 41.9 fL 35.1-43.9 [facility] Work Phone: [phone] Erythrocyte distribution width (RBC) [Ratio] 13.6 % 11.6-14.6 [facility] Work Phone: [phone] Immature granulocytes/100 WBC (Bld) 0.300 % 0.0-0.9 [facility] Work Phone: [phone] Comment on above: IG% - Immature Granu locytes (promyelocytes, myelocytes and metamyelocytes) > 1% indicates that a LEFT SHIFT is Present. MCH (RBC) [Entitic mass] 28.3 pg 27.0-32.0 [facility] Work Phone: Nucleated RBC/100 WBC (Bld) [Ratio] 0 % 0-5 [facility] Work Phone: MCHC Auto (RBC) [Mass/Vol]on 04-30-2022 MCHC (RBC) [Mass/Vol] 33.6 g/dL 32-36 [facility] Work Phone: Mucus LM Ql (Urine sed)on Mucus Ql (Urine sed) 0 SEEN /hpf [facility] Work Phone: Nitrite Test strip Ql (U)on 04-30-2022 Nitrite Ql (U) Negative Negative [facility] Work Phone: No Panel Informationon 04-30 Estimated Creatinine Clearance Calc 81.33 ml/min [facility] Work Phone: Estimated GFR (MDRD) Amer 107 mL/min >60 [facility] Work Phone: Comment on above: GFR Calc Estimated GFR (MDRD) Non-Af Amer 88 mL/min >60 [facility] Work Phone: Comment on above: Non- GFR Calc Platelets bldon 04-30-2022 Platelets (Bld) [#/Vol] 359 10*3/uL 150-450 [facility] Work Phone: Protein Test strip Ql (U)on 04-30-2022 Protein Ql (U) Negative Negative [facility] Work Phone: Serum or plasma calcium alfa urement (mass/volume)on 04-30-2022 Calcium [Mass/Vol] 9.8 mg/dL 8.5-10.1 [facility] Work Phone: Serum or plasma creatinine m easurement (mass/volume)on 04-30-2022 Creatinine [Mass/Vol] 0.88 mg/dL 0.55-1.02 [facility] Work Phone: Comment on above: The validity of the calculated GFR & GFRAA in patients over 70 years has not been determined. Clinical correlation is essential. Serum or plasma urea nitroge n measurement (mass/volume)on 04-30-2022 Urea nitrogen [Mass/Vol] 12 mg/dL 7-18 [facility] Work Phone: Squamous epithelial cells de tection in urine sediment by light microscopyon 04-30-2022 Epithelial cells.squamous LM Ql (Urine sed) 0-5 SEEN /hpf 5-10 [facility] Work Phone: Thin prep Papanicolaou smear with manual screeningon 04-30-2022 Thin prep Papanicolaou smear with manual screening 8 5-15 [facility] Work Phone: Urine blood detectionon 04-12-2021 RBC Ql (U) Negative Negative [facility] Work Phone: RBC Ql (U) 0 SEEN /hpf 0-5 [facility] Work Phone: Urine clarityon 04-30-2022 Clarity (U) Sl. Cloudy Clear [facility] Work Phone: Urine color determinationon 04-30-2022 Color (U) Straw Yellow [facility] Work Phone: Urine glucose detectionon Glucose Ql (U) Normal mg/dl Normal [facility] Work Phone: Urine leukocyte esterase det ection by dipstickon 04-30-2022 Leukocyte esterase Test strip Ql (U) 500 /ul Negative [facility] Work Phone: Urine pHon 04-30-2022 pH (U) 7.0 [pH] 5.0 - 8.0 [facility] Work Phone: Urine sediment bacteria coun t by microscopy (number/high power field)on 04-30-2022 Bacteria LM.HPF (Urine sed) [#/Area] 2 /[HPF] None Seen [facility] Work Phone: Urine specific gravity measu rementon 04-30-2022 Specific gravity (U) [Rel density] 1.010 1.002-1.03 0 [facility] Work Phone: Urobilinogen Auto test strip Ql (U)on 04-30-2022 Urobilinogen Ql (U) Normal mg/dl Normal [facility] Work Phone: Laboratory - Microbiology an d Antimicrobial susceptibilityon 03-22-2022 SARS-CoV-2 (COVID-19) RNA [place]+probe Ql (Unsp spec) Not detected [facility] Work Phone: No Panel Informationon 03-22 Influenza Types A,B Rapid (Clinic) Not detected [facility] Work Phone: Absolute lymphocyte counton 10-16-2021 Lymphocytes Auto (Unsp spec) [#/Vol] 0.80 10*3/uL 0.83-4.51 [facility] Work Phone: Basophil percentageon 2021 Basophil percentage 0-5 SEEN /hpf 0-5 [facility] Work Phone: [phone] Basophils/100 WBC (Bld) 0.1 % 0-1 [facility] Work Phone: Bilirubin [Mass/Vol] 0.60 mg/dL 0.20-1.00 [facility] Work Phone: Comment on above: For patients on eltr ombopag therapy, use of Dimension [place] TBIL is not recommended. Chloride [Moles/Vol] 108 mmol/L 98-107 [facility] Work Phone: Eosinophils/100 WBC (Bld) 0.3 % 0-3 [facility] Work Phone: Glucose [Mass/Vol] 109 mg/dL 74-106 [facility] Work Phone: Comment on above: Fasting Glucose resu lt from 100 to 125 mg/dL suggests IMPAIRED HOMEOSTASIS per A.D.A. criteria. Neutrophils (Bld) [#/Vol] 14.0 10*3/uL 2.0-7.7 [facility] Work Phone: Neutrophils/100 WBC (Bld) 88.5 % 34-64 [facility] Work Phone: Potassium [Moles/Vol] 3.8 mmol/L 3.5-5.1 [facility] Work Phone: Protein [Mass/Vol] 7.5 g/dL 6.4-8.2 [facility] Work Phone: Sodium [Moles/Vol] 138 mmol/L 136-145 [facility] Work Phone: WBC (Bld) [#/Vol] 15.9 10*3/uL 4.5-13.0 [facility] Work Phone: Beta hCG serum qualon 2021 Beta HCG ( test) Ql Negative [facility] Work Phone: [phone] Bilirubin Test strip Ql (U)o n 10-16-2021 Bilirubin Ql (U) 1 mg/dL Negative [facility] Work Phone: [phone] Comment on above: COLOR OF URINE MAY A FFECT DIPSTICK RESULTS. Blood erythrocytes count (nu mber/volume)on 10-16-2021 RBC (Bld) [#/Vol] 5.11 10*6/uL 4.1-4.8 [facility] Work Phone: [phone] Blood hemoglobin measurement (mass/volume)on 10-16-2021 Hemoglobin (Bld) [Mass/Vol] 14.2 g/dL 12.0-15.0 [facility] Work Phone: Blood lymphocytes/100 leukoc yteson 10-16-2021 Lymphocytes/100 WBC (Bld) 5.0 % 25-45 [facility] Work Phone: Blood monocytes/100 leukocyt eson 10-16-2021 Monocytes/100 WBC (Bld) 5.7 % 3-6 [facility] Work Phone: Blood platelet mean volumeon 10-16-2021 Platelet mean volume (Bld) [Entitic vol] 8.8 fL 6.2-12.0 [facility] Work Phone: [phone] Determination of erythrocyte mean corpuscular volume (MCV)on 10-16-2021 MCV (RBC) [Entitic vol] 81.8 fL 78-96 [facility] Work Phone: [phone] Hematocrit Auto (Bld) [Volum e fraction]on 10-16-2021 Hematocrit (Bld) [Volume fraction] 41.8 % 37-46 [facility] Work Phone: [phone] Ketones Test strip Ql (U)on 10-16-2021 Ketones Ql (U) 5 mg/dl Negative [facility] Work Phone: [phone] Laboratory - Chemistry and C hemistry - challengeon 10-16-2021 ALP [Catalytic activity/Vol] 67 U/L 47-119 [facility] Work Phone: [phone] ALT [Catalytic activity/Vol] 15 U/L 13-56 [facility] Work Phone: [phone] CO2 [Moles/Vol] 25.0 mmol/L 21.0-32.0 [facility] Work Phone: [phone] Globulin (S) [Mass/Vol] 3.5 g/dL 2.2-4.2 [facility] Work Phone: [phone] Lipase [Catalytic activity/Vol] 83 U/L 73-393 [facility] Work Phone: [phone] Urea nitrogen/Creatinine [Mass ratio] 24.6 mg/mg 10-20 [facility] Work Phone: Laboratory - Hematology and Cell countson 10-16-2021 Erythrocyte distribution width (RBC) [Entitic vol] 41.1 fL 35.1-43.9 [facility] Work Phone: [phone] Erythrocyte distribution width (RBC) [Ratio] 13.9 % 11.6-14.6 [facility] Work Phone: Immature granulocytes/100 WBC (Bld) 0.400 % 0.0-0.9 [facility] Work Phone: [phone] Comment on above: IG% - Immature Granu locytes (promyelocytes, myelocytes and metamyelocytes) > 1% indicates that a LEFT SHIFT is Present. MCH (RBC) [Entitic mass] 27.8 pg 25.0-35.0 [facility] Work Phone: Nucleated RBC/100 WBC (Bld) [Ratio] 0 % 0-5 [facility] Work Phone: MCHC Auto (RBC) [Mass/Vol]on 10-16-2021 MCHC (RBC) [Mass/Vol] 34.0 g/dL 32-36 [facility] Work Phone: Mucus LM Ql (Urine sed)on Mucus Ql (Urine sed) 1+ /hpf [facility] Work Phone: Nitrite Test strip Ql (U)on 10-16-2021 Nitrite Ql (U) Negative Negative [facility] Work Phone: No Panel Informationon 10-16 Estimated Creatinine Clearance Calc 98.85 ml/min [facility] Work Phone: Estimated GFR (MDRD) Amer 132 mL/min >60 [facility] Work Phone: Comment on above: GFR Calc Estimated GFR (MDRD) Non-Af Amer 109 mL/min >60 [facility] Work Phone: Comment on above: Non- GFR Calc Platelets bldon 10-16-2021 Platelets (Bld) [#/Vol] 287 10*3/uL 150-450 [facility] Work Phone: Protein Test strip Ql (U)on 10-16-2021 Protein Ql (U) 15 mg/dl Negative [facility] Work Phone: Serum or plasma albumin alfa urement (mass/volume)on 10-16-2021 Albumin [Mass/Vol] 4.0 g/dL 3.2-5.0 [facility] Work Phone: Serum or plasma albumin/glob ulin mass ratioon 10-16-2021 Albumin/Globulin [Mass ratio] 1.1 {ratio} 0.9-2.4 [facility] Work Phone: Serum or plasma calcium alfa urement (mass/volume)on 10-16-2021 Calcium [Mass/Vol] 9.5 mg/dL 8.5-10.1 [facility] Work Phone: Serum or plasma creatinine m easurement (mass/volume)on 10-16-2021 Creatinine [Mass/Vol] 0.73 mg/dL 0.55-1.02 [facility] Work Phone: Comment on above: The validity of the calculated GFR & GFRAA in patients over 70 years has not been determined. Clinical correlation is essential. Serum or plasma urea nitroge n measurement (mass/volume)on 10-16-2021 Urea nitrogen [Mass/Vol] 18 mg/dL 7-18 [facility] Work Phone: Squamous epithelial cells de tection in urine sediment by light microscopyon 10-16-2021 Epithelial cells.squamous LM Ql (Urine sed) 5-10 SEEN /hpf 5-10 [facility] Work Phone: Thin prep Papanicolaou smear with manual screeningon 10-16-2021 Thin prep Papanicolaou smear with manual screening 10 U/L 15-37 [facility] Work Phone: Thin prep Papanicolaou smear with manual screening 5 5-15 [facility] Work Phone: Urine blood detectionon 03-0 RBC Ql (U) Negative Negative [facility] Work Phone: RBC Ql (U) 0-5 SEEN /hpf 0-5 [facility] Work Phone: Urine clarityon 10-16-2021 Clarity (U) Sl. Cloudy Clear [facility] Work Phone: Urine color determinationon 10-16-2021 Color (U) Yellow Yellow [facility] Work Phone: Urine glucose detectionon Glucose Ql (U) Normal mg/dl Normal [facility] Work Phone: Urine leukocyte esterase det ection by dipstickon 10-16-2021 Leukocyte esterase Test strip Ql (U) 25 /ul Negative [facility] Work Phone: Urine pHon 10-16-2021 pH (U) 6.5 [pH] 5.0 - 8.0 [facility] Work Phone: Urine sediment bacteria coun t by microscopy (number/high power field)on 10-16-2021 Bacteria LM.HPF (Urine sed) [#/Area] 3 /[HPF] None Seen [facility] Work Phone: Urine specific gravity measu rementon 10-16-2021 Specific gravity (U) [Rel density] 1.010 1.002-1.03 0 [facility] Work Phone: Urobilinogen Auto test strip Ql (U)on 10-16-2021 Urobilinogen Ql (U) 1 mg/dl Normal [facility] Work Phone: CNPShauna 04-27-2020 [employer] Tele[facility] NONA ANTONIO ([id number]) 1 F Date Time Provider Department 04/27/20 TAYLOR CASTELLANO [facility] During your visit today, we recorded the following information about you: Taylor Castellano MD 04/28/2020 10:43 AM Addendum Called with biopsy results No answer and left a message to call peds GI office Also a RUQ US was ordered 1. Duodenum, bulb, biopsy (A) - Duodenal mucosa with no significant diagnostic alterations. 2. Stomach, biopsy (B) - Mild chronic inactive gastritis. - No morphologic evidence of helicobacter pylori. 3. Esophagus, distal, biopsy (C) - Squamous esophageal mucosa with no significant diagnostic alterations. 4. Esophagus, proximal, biopsy (D) - Squamous esophageal mucosa with no significant diagnostic alterations. Called mom and biopsies were NDAR She has an US scheduled next week She has been on a PPI She did try Carafate at bedtime that she did not tolerate IBS is in the family On Wellbutrin Intuiv and Zoloft No NSAID use Allergies As of Date: 04/27/2020 Noted Allergy Reaction AUGMENTIN (AMOXICILLIN-POT CLAVUL*04/01/2008 6 - Diarrhea SULFAMETHOXAZOLE 08/17/2019 4 - Hives Date Reviewed: 04/25/2020 Reviewed by: Nanda YiRn) FELIPE Kee - Fully Assessed Reason for Visit: Results [95] Prescriptions as of 04/27/2020 Sig: BUPROPION XL 150 MG TAB 150 tablets. OMEPRAZOLE 20 MG CAPSULE,HAKAN* Take 1 capsule by mouth twice* CHOLECALCIFEROL (VITAMIN D3) * Take 1 capsule by mouth one t* Patient not taking: Reported on 04/20/2020 SERTRALINE 100 MG TABLET Take 1.5 mg by mouth. 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 04/01/2018 Constipation [K59.00] 06/17/2018 Anxiety neurosis [F41.1] 06/17/2018 Encounter Status:Closed by TAYLOR CASTELLANO MD on 04/28/20 Normal [facility] CBC and Differentialon 04-20 Abs Baso 0.03 k/uL Normal <0.11 [facility] Comment on above: Performed By: #### R ETIC, LIPA, VITD #### [facility] [address] [place] [phone] Abs [place] 0.38 k/uL Normal <0.87 [facility] Comment on above: Performed By: #### R ETIC, LIPA, VITD #### [facility] [address] [place] [phone] Abs Neut 4.21 k/uL Normal 1.45-7.50 [facility] Comment on above: Performed By: #### R ETIC LIPA, VITD #### [facility] [place] [address] Absolute nRBC <0.01 Normal <0.01 [facility] Comment on above: Performed By: #### R ETIC LIPA, VITD #### [place] [phone] Basophils/100 WBC (Bld) 0.4 % Normal [facility] Comment on above: Performed By: #### R ETIC LIPA, VITD #### [place] [phone] DTYPE Auto Diff Normal [facility] Comment on above: Performed By: #### R ETIC LIPA, VITD #### [place] [phone] Eosinophils (Bld) [#/Vol] 10*3/uL Normal <0.46 [facility] Comment on above: Performed By: #### R ETIC, LIPA, VITD #### [place] [address] Eosinophils/100 WBC (Bld) 0.1 % Normal [facility] Comment on above: Performed By: #### R ETIC, LIPA, VITD #### [facility] [address] [place] [phone] Erythrocyte distribution width (RBC) [Ratio] 14.4 % Normal 11.5-15.0 [facility] Comment on above: Performed By: #### R ETIC, LIPA, VITD #### [facility] [place] [phone] Hematocrit (Bld) [Volume fraction] 42.8 % Normal 36.0-46.0 [facility] Comment on above: Performed By: #### R ETIC, LIPA, VITD #### [facility] [address] [place], [place] [address] Hemoglobin (Bld) [Mass/Vol] 13.5 g/dL Normal 11.5-15.5 [facility] Comment on above: Performed By: #### R ETIC, LIPA, VITD #### [facility] [address] [place], [place] [address] Lymphocytes (Bld) [#/Vol] 3.54 10*3/uL Normal 1.00-4.00 [facility] Comment on above: Performed By: #### R ETIC, LIPA, VITD #### [place] [id number] [place], [place] [address] Lymphocytes/100 WBC (Bld) 43.3 % Normal [facility] Comment on above: Performed By: #### R ETIC, LIPA, VITD #### [place] [id number] [place], [place] [address] MCH (RBC) [Entitic mass] 26.5 pG Normal 26.0-34.0 [facility] Comment on above: Performed By: #### R ETIC, LIPA, VITD #### [facility] [place], [place] [address] MCHC (RBC) [Mass/Vol] 31.5 g/dL Normal 30.5-36.0 [facility] Comment on above: Performed By: #### R ETIC, LIPA, VITD #### [facility] [address] [place], [place] [address] MCV (RBC) [Entitic vol] 84.1 fL Normal 80.0-100.0 [facility] Comment on above: Performed By: #### R ETIC, LIPA, VITD #### [facility] [place], [place] [address] Monocytes/100 WBC (Bld) 4.6 % Normal [facility] Comment on above: Performed By: #### R ETIC, LIPA, VITD #### [facility] [address] [place] [address] Neutrophils/100 WBC (Bld) 51.6 % Normal [facility] Comment on above: Performed By: #### R ETIC, LIPA, VITD #### [facility] [address] [place] [address] NRBCs 0.0 /100 WBC Normal 0 [facility] Comment on above: Performed By: #### R ETIC, LIPA, VITD #### [facility] [address] [place] [address] Platelet mean volume (Bld) [Entitic vol] 9.3 fL Normal 9.0-12.7 [facility] Comment on above: Performed By: #### R ETIC, LIPA, VITD #### [facility] [place] [address] Platelets (Bld) [#/Vol] 353 10*3/uL Normal 150-400 [facility] Comment on above: Performed By: #### R ETIC, LIPA, VITD #### [facility] [address] [place] [address] RBC (Bld) [#/Vol] 5.09 10*6/uL Normal 3.90-5.20 [facility] Comment on above: Performed By: #### R ETIC, LIPA, VITD #### [facility] [address] [place] [address] WBC (Bld) [#/Vol] 8.18 10*3/uL Normal 3.70-11.00 [facility] Comment on above: Performed By: #### R ETIC, LIPA, VITD #### [facility] [address] [place] [address] CNOVon 04-20-2020 CNOV Office Visit ([facility] ) [place] ([id number]) 1 F Date Time Provider Department 04/20/20 11:00 AM TAYLOR CASTELLANO [facility] During your visit today, we recorded the following information about you: Temperature Pulse Respiration Blood pressure 97.5 degrees 79/minute 18/minute 100/66 Weight Height 49.1 kg 1.58 m Taylor Castellano MD 04/20/2020 1:13 PM Signed Taylor Castellano MD PEDIATRIC GASTROENTEROLOGY [facility] ____ Nona is being seen in follow up for history of epigastric abdominal discomfort and blood tinged spit ups and my final recommendations will be communicated back to the requesting physician by way of the shared medical record. ALLERGIES: ALLERGIES Allergen Reactions - Augmentin [Amoxicil* Diarrhea - Sulfamethoxazole Hives CURRENT MEDICATION: buPROPion XL (WELLBUTRIN XL) 150 mg 24 hr tablet 150 tablets. omeprazole (PRILOSEC) 20 mg capsule Take 1 capsule by mouth once daily. sertraline (ZOLOFT) 100 mg tablet Take 1.5 mg by mouth. 150 mg clonazePAM (KLONOPIN) 0.5 mg tablet Take 0.5 mg by mouth twice daily as needed. can take 1-2 tablets guanFACINE (INTUNIV) 1 mg ER 24 hr tablet(s) Take 4 mg by mouth once daily. cholecalciferol, Vitamin D3, (VITAMIN D3) 1,250 mcg (50,000 unit) cap capsule Take 1 capsule by mouth one time a week. Last seen: September 2019 . HISTORY: The patient is a 15 year old female accompanied by her Mother with a history of epigastric abdominal discomfort and blood tinged mucous At the time of her last visit Nona Antonio is a 14 year old, female presenting for evaluation for hemoptysis for which she has been seen by peds pulmonary at [facility] and now here for further evaluation and testing. She states that this is not hematemesis and there is no issues with upper abdominal pain nor heartburn If it is from GI tract source can be esophagitis, PUD< gastritis and advised to avoid NSAID and also to check H pylori BT that was negative Can also be a Suzette daley tear of esophagus however, she is not vomiting With regards to her neuropsychiatric issues she is followed and managed by a psychiatrist I the [facility] Since she was last seen she was doing well until the past 2 weeks She developed some epigastric discomfort Then she started to have the hiccups and intermittent blood tinged mucous No nose bleeds she did have one episode of vomiting at school that did not have blood No dysphagia no odynophagia She does not take NSAID nor aspirin No spicy foods She does tend to be constipated and no reports of diarrhea or change in her stools No history of liver or bleeding no mouth sores She was seen previously by peds pulmonary and peds ENT REVIEW OF SYSTEMS: Constitutional:- No significant change in weight, no fatigue. ENDO:- no diabetes or thyroid disease CVS:- No history of heart disease, No history of heart murmurs RESP:- no wheezing, frequent cough or shortness of breath GI:- Negative history of blood in stools or black stools, diarrhea, hematochezia, problem swallowing and loss of appetite Positive history of abdominal discomfort, abdominal pain and nausea NEURO:-Normal growth and development. :-negative Integumentary:- Negative for lesions, rash, and itching. Musculoskeletal:- Negative Psychiatry:-negative for sleep disturbance and recent psychosocial stressors anxiety Hematologic/Lymphatic:-No history of anemia, bruising, bleeding abnormalities. Allergic/Immunologic:-no hay fever POSITIVE for drug allergies PAST MEDICAL HISTORY Diagnosis Date - ADHD - Anxiety - Depression - NEGATIVE MEDICAL HISTORY 04/01/08 Normal color vision PAST SURGICAL HISTORY Procedure Laterality Date - NONE FAMILY HISTORY Problem Relation Age of Onset - Hypertension Father - other (kidney stones) Father - Breast Cancer Paternal Grandmother - Breast Cancer Maternal Grandmother 68 - Hypertension Maternal Grandfather - Diabetes Other paternal side - Hypertension Other maternal AND paternal sides - Stroke Other maternal AND paternal sides Review of SOCIAL HX: Lives at home with parents In school in 11 th grade PHYSICAL EXAM: Last 3 Encounter Wt Readings: Date: Wt: 04/20/2020 49.1 kg (108 lb 3.9 oz) (20 %, Z= -0.84)* 10/08/2019 47.7 kg (105 lb 2.6 oz) (17 %, Z= -0.96)* 09/15/2019 47.7 kg (105 lb 1.6 oz) (17 %, Z= -0.95)* Vital Signs:-BP 100/66 Pulse 79 Temp (Src) 97.5 (Temporal) Resp 18 Ht 5' 2.205 (1.58m) Wt 108 lb 3.9 oz (49.1kg) SpO2 100% LMP 08/02/2019 BMI 19.67 kg/(m2). , General/Constitutional:- alert and active in no apparent distress Head:- Normocephalic Eye:- conjunctiva clear, no icterus Neck/Lymphatic:- supple, no adenopathy Cardiac:- Regular Rate and Rhythm without murmurs or clicks Respiratory:- clear to auscultation Gastrointestinal:- Abdomen is soft, non-tender; BS normal and there are no masses or organomegaly Rectal :- deferred exam Neuro:- Muscle tone normal Genitourinary:- deferred Musculoskeletal :- Extremities with FROM and no problems identified. Extremity:- Normal exam of the extremities. No clubbing, cyanosis, or edema. Skin:-normal color, no jaundice or rash PREVIOUS LABS: Appointment on 09/15/2019 Component Date Value Ref Range Status - WBC 09/15/2019 9.20 3.70 - 11.00 k/uL Final Comment: Result checked and verified No clot detected. - RBC 09/15/2019 5.13 3.90 - 5.20 m/uL Final - Hemoglobin 09/15/2019 14.0 11.5 - 15.5 g/dL Final - Hematocrit 09/15/2019 41.8 36.0 - 46.0 % Final - MCV 09/15/2019 81.5 80.0 - 100.0 fL Final - MCH 09/15/2019 27.3 26.0 - 34.0 pG Final - MCHC 09/15/2019 33.5 30.5 - 36.0 g/dL Final - RDW-CV 09/15/2019 13.6 11.5 - 15.0 % Final - Platelet Count 09/15/2019 371 150 - 400 k/uL Final Comment: Result checked and verified No clot detected. - MPV 09/15/2019 9.3 9.0 - 12.7 fL Final - Neut% 09/15/2019 56.0 % Final - Abs Neut (ANC) 09/15/2019 5.15 1.45 - 7.50 k/uL Final - Lymph% 09/15/2019 38.0 % Final - Abs Lymph 09/15/2019 3.50 1.00 - 4.00 k/uL Final - Canyon% 09/15/2019 6.0 % Final - Abs Canyon 09/15/2019 0.55 <0.87 k/uL Final - Eosin% 09/15/2019 0.0 % Final - Abs Eosin 09/15/2019 0.00 <0.46 k/uL Final - Baso% 09/15/2019 0.0 % Final - Abs Baso 09/15/2019 0.00 <0.11 k/uL Final - ANC(includeSEG+BAND) 09/15/2019 5.15 k/uL Final - Red Cell Morph 09/15/2019 SEE COMMENT Final Unremarkable - Platelet Estimate 09/15/2019 Platelet estimate adequate Final - Diff Type 09/15/2019 Manual Diff Final - Vitamin D 25 Hydroxy 09/15/2019 12.6* 31.0 - 80.0 ng/mL Final Comment: Classification of 25 [place] Vitamin D status: Insufficiency/Moderate Deficiency: < or = 30 ng/mL Sufficiency/Optimal Levels: 31 to 80 ng/mL Toxicity: > 100 ng/mL Test performed by chemiluminescent immunoassay. - Transglutaminase Ab, IgA 09/15/2019 2 <20 Units Final Comment: Negative : < 20 Units Weak Positive : 20 - 30 Units Moderate Pos to Strong Pos: >30 Units The following results were obtained with the [employer] QUANTA Lite h-tTG IgA PRISCILLA. h-tTG IgA values obtained with different manufacturers' assay methods may not be used interchangeably. The magnitude of the reported IgA levels cannot be correlated to an endpoint titer. - IgA 09/15/2019 109 78 - 391 mg/dL Final - Lipase 09/15/2019 42 16 - 61 U/L Final Comment: (NOTE) Reference ranges for this patient's age group have not been established. These reference ranges reflect verified or established ranges for the adult population. Interpret these ranges with caution using the clinical context and additional reference resources. - Egg White IgE 09/15/2019 <0.35 <0.35 KU/L Final - Egg White Class 09/15/2019 0 0 Final - Milk Cow IgE 09/15/2019 <0.35 <0.35 KU/L Final - Milk Cow Class 09/15/2019 0 0 Final - Wheat IgE 09/15/2019 <0.35 <0.35 KU/L Final - Wheat Class 09/15/2019 0 0 Final - Fairburn IgE 09/15/2019 <0.35 <0.35 KU/L Final - [place] Class 09/15/2019 0 0 Final - Peanut IgE 09/15/2019 <0.35 <0.35 KU/L Final - Peanut Class 09/15/2019 0 0 Final - Soybean IgE 09/15/2019 <0.35 <0.35 KU/L Final - Soybean Class 09/15/2019 0 0 Final - Crab IgE 09/15/2019 <0.35 <0.35 KU/L Final - Crab Class 09/15/2019 0 0 Final - Shrimp IgE 09/15/2019 <0.35 <0.35 KU/L Final - Shrimp Class 09/15/2019 0 0 Final - Crockett IgE 09/15/2019 <0.35 <0.35 KU/L Final - Crockett Class 09/15/2019 0 0 Final - Tuna IgE 09/15/2019 <0.35 <0.35 KU/L Final - Tuna Class 09/15/2019 0 0 Final - TB Nil 09/15/2019 0.02 IU/mL Final - TB1 Ag minus Nil 09/15/2019 0.00 <0.35 IU/mL Final - TB2 Ag minus Nil 09/15/2019 0.01 <0.35 IU/mL Final - Mitogen minus Nil 09/15/2019 >10 Final - TB Result 09/15/2019 Negative Negative Final - TB Interpretation 09/15/2019 No evidence of current or previous infection with Mycobacterium tuberculosis. Final - TSH 09/15/2019 1.620 0.510 - 4.300 uU/mL Final Comment: If the patient is , TSH reference range varies by gestational period: First Trimester (weeks 9-12): 0.180-2.990 mcIU/mL Second Trimester: 0.110-3.980 mcIU/mL Third Trimester: 0.480-4.710 mcIU/mL Bereket Junior et al. A Practical Approach for the Verifications and Determination of Site- and Trimester-Specific Reference Intervals for Thyroid Function tests in . Thyroid, 2019:29:3:412-420. Luca Castanon, et al. 2017 Guidelines of the [place] Thyroid Association for the Diagnosis and Management of Thyroid Disease during and the . Thyroid, 2017:27:3:315-389. Reference ranges were not locally established for this patient's age group. The normal values are based on the following source: Tamie Gray V. Reference Ranges for Adults and Children: Pre-analytical Considerations. [facility] - Free T4 09/15/2019 1.2 0.8 - 1.5 ng/dL Final IMPRESSION: Teen who has anxiety issues and presented at least 6 months prior with hemoptysis She was seen in the ER and had a CXR and TB testing that was negative Also seen by peds pulmonary She was to have an EGD however, due to the pandemic it was cancelled She now presents again with heartburn, burping and bloody spit ups Restarted the PPI Etiology could be from GI tract, esophagitis, gastritis however , no know risk factors for portal hypertension to suggest varices which is highly unlikely She is not coughing up blood and no history of nose bleeds to suggest either pulmonary or ENT source Her last labs were unremarkable and will check labs today Offered an EGD with biopsies to be done Procedure and risks explained to mother and patient questions answered and consent signed Pre op COVID testing ordered Advised clear liquids for dinner the night prior to the EGD Increase Omeprazole 20 mg bid Avoid spicy foods No NSAID no aspirin If no source found Refer back to ENT and pulmonary RECOMMENDATIONS: To further evaluate we discussed to proceed with testing as listed below. LABS: CBC, CMP, Iron Panel, PT/INR PROCEDURES: EGD IMAGING: None FOLLOW UP: 1 week after endoscopy Worrisome signs and symptoms discussed with patient and caregiver. Taylor Castellano MD 04/20/2020 Electronically signed CC. Micky Gamino MD [id number] [facility] [id number] Taylor Castellano MD 04/20/2020 11:43 AM Addendum 1. Labs today 2. Did order an upper endoscopy with biopsies R building on [facility] [address] covid testing within 72 hours prior 3.continue the Omeprazole and can do 1 capsule 2 times a day 4. miralax daily 1 cap in a glass of water or juice Referring Provider: SELF [200] Allergies As of Date: 04/20/2020 Noted Allergy Reaction AUGMENTIN (AMOXICILLIN-POT CLAVUL*04/01/2008 6 - Diarrhea SULFAMETHOXAZOLE 08/17/2019 4 - Hives Date Reviewed: 04/20/2020 Reviewed by: Taylor Castellano - Fully Assessed Reason for Visit: Abdominal Pain [1] Nausea [70] Reason For Visit History Recorded Primary Visit Diagnosis:Epigastric abdominal tenderness without rebound tenderness [R10.816] Other Visit Diagnoses:Hiccups [R06.6] Hematemesis without nausea [K92.0] Order(s):PRE-PROCEDURE AND PRE-OPERATIVE COVID [SQPOCOVD] Order #: [id number] FUTURE SURGICAL REQUEST - ELECTIVE (03/2020) [[id number]] Order #: [id number]: 1 omeprazole (PRILOSEC) 20 mg capsuleTake 1 capsule by mouth twice daily.Disp: 60 capsuleRfl: 1 Prescriptions as of 04/20/2020 Sig: BUPROPION XL 150 MG TAB 150 tablets. OMEPRAZOLE 20 MG CAPSULE,HAKAN* Take 1 capsule by mouth twice* SERTRALINE 100 MG TABLET Take 1.5 mg by mouth. 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 Labs today 2. Did order an upper endoscopy with biopsies R building on [facility] [address] covid testing within 72 hours prior 3.continue the Omeprazole and can do 1 capsule 2 times a day 4. miralax daily 1 cap in a glass of water or juice Prescriptions ordered this encounter Disp Refills Start End OMEPRAZOLE 20 MG CAPSULE,DELAYED REL* 60 c* 1 04/20/2020 Route: ORAL Sig: Take 1 capsule by mouth twice daily. Medications Discontinued During This Encounter Prescriptions - omeprazole (PRILOSEC) 20 mg capsule (Discontinued) Take 1 capsule by mouth once daily. Encounter Status:Closed by TAYLOR CASTELLANO MD on 04/20/20 Normal [facility] Comp Metabolic Panelon 04-20 Albumin [Mass/Vol] 4.7 g/dL Normal 3.9-4.9 [facility] Comment on above: Performed By: #### R ETIC, LIPA, VITD #### [facility] [employer] [address] [place], [place] [address] ALP [Catalytic activity/Vol] 76 U/L Normal 45-87 [facility] Comment on above: Result Comment: Refe rence ranges were not locally established for this patient's age group. The normal values are based on the following source: Marti PARKER, David AH, et al. CLSI based transference of the CALIPER database of pediatric reference intervals from [employer] to [employer], Orth[employer], [employer], and [employer] Clinical Chemistry Assays: Direct validation using reference samples from the [employer] cohort. Clin Biochem. Performed By: #### R ETIC, LIPA, VITD #### [facility] [employer] [address] [place], [place] [address] ALT [Catalytic activity/Vol] 10 U/L Normal 7-38 [facility] Comment on above: Performed By: #### R ETIC, LIPA, VITD #### [facility] [employer] [employer] [address] [place], [place] [address] Anion gap [Moles/Vol] 11 mmol/L Normal 9-18 [facility] Comment on above: Performed By: #### R ETIC, LIPA, VITD #### [facility] [employer] [address] [place], [place] [address] AST [Catalytic activity/Vol] 23 U/L Normal 13-35 [facility] Comment on above: Performed By: #### R ETIC, LIPA, VITD #### [facility] [employer] [address] [place] [id number] Bilirubin [Mass/Vol] 0.6 mg/dL Normal 0.2-1.3 [facility] Comment on above: Result Comment: (NOT E) Reference ranges for this patient's age group have not been established. These reference ranges reflect verified or established ranges for the adult population. Interpret these ranges with caution using the clinical context and additional reference resources. Performed By: #### R ETIC, LIPA, VITD #### [facility] [employer] [address] [place] [id number] Calcium [Mass/Vol] 10.1 mg/dL Normal 8.5-10.2 [facility] Comment on above: Performed By: #### R ETIC, LIPA, VITD #### [facility] [employer] [address] [place] [address] Chloride [Moles/Vol] 104 mmol/L Normal 97-105 [facility] Comment on above: Performed By: #### R ETIC, LIPA, VITD #### [facility] [employer] [address] [place] [address] CO2 [Moles/Vol] 26 mmol/L Normal 22-33 [facility] Comment on above: Performed By: #### R ETIC, LIPA, VITD #### [employer] [address] [place] [address] Creatinine [Mass/Vol] 0.70 mg/dL Normal 0.4-1.3 [facility] Comment on above: Performed By: #### R ETIC, LIPA, VITD #### [facility] [address] [place] [id number] GFR/1.73 sq M predicted among non-blacks MDRD (S/P/Bld) [Vol rate/Area] 0.59 mL/min/{1.73_m2} Normal [facility] Comment on above: Result Comment: eGFR (Estimated GFR) Units of measure: mL/min/1.73 meters squared eGFR in pediatric patients is calculated from the Bedside Jonas equation based on a stable serum creatinine and height. The creatinine assay has been calibrated to be traceable to IDMS. To calculate the patient's eGFR, multiply the given factor by the patient's height (centimeters). An eGFR <60 mL/min/1.73m2 for >3 months is consistent with chronic kidney disease. Refer to KDOQI guidelines for clinical interpretation. Performed By: #### R ETIC, LIPA, VITD #### [facility] [address] [place], [place] [address] Glucose [Mass/Vol] 93 mg/dL Normal 74-99 [facility] Comment on above: Performed By: #### R ETIC, LIPA, VITD #### [facility] [address] [place], [place] [address] Potassium [Moles/Vol] 4.5 mmol/L Normal 3.7-5.1 [facility] Comment on above: Performed By: #### R ETIC, LIPA, VITD #### [facility] [employer] [address] [place] [address] Protein [Mass/Vol] 7.9 g/dL Normal 6.3-8.0 [facility] Comment on above: Performed By: #### R ETIC, LIPA, VITD #### [facility] [address] [place], [place] [address] Sodium [Moles/Vol] 141 mmol/L Normal 136-144 [facility] Comment on above: Performed By: #### R ETIC, LIPA, VITD #### [facility] [address] [place] [address] Urea nitrogen [Mass/Vol] 12 mg/dL Normal 5-20 [facility] Comment on above: Performed By: #### R ETIC, LIPA, VITD #### [facility] [address] [place] [address] Iron and TIBCon 04-20-2020 Iron [Mass/Vol] 101 ug/dL Normal 41-186 [facility] Comment on above: Performed By: #### R ETIC, LIPA, VITD #### [facility] [employer] [address] [place] [id number] TIBC 347 ug/dL Normal 210-415 [facility] Comment on above: Performed By: #### R ETIC, LIPA, VITD #### [facility] [address] [place] [id number] Transferrin Saturatn 29 % Normal 11-46 [facility] Comment on above: Performed By: #### R ETIC, LIPA, VITD #### [facility] [address] [place] [id number] Lipaseon 04-20-2020 Lipase [Catalytic activity/Vol] 22 U/L Normal 16-61 [facility] Comment on above: Result Comment: (NOT E) Reference ranges for this patient's age group have not been established. These reference ranges reflect verified or established ranges for the adult population. Interpret these ranges with caution using the clinical context and additional reference resources. Performed By: #### R ETIC, LIPA, VITD #### [facility] [address] [place] [id number] Magnesiumon 04-20-2020 Magnesium [Mass/Vol] 2.0 mg/dL Normal 1.7-2.3 [facility] Comment on above: Performed By: #### R ETIC, LIPA, VITD #### [facility] [address] [place] [address] PROGRESSon 04-20-2020 PROGRESS HNO ID: [id number] Author: Taylor Castellano Service: ? Author Type: Physician Type: Progress Notes Filed: 04/20/2020 1:13 PM Note Text: Taylor Castellano MD PEDIATRIC GASTROENTEROLOGY [facility] ____ Nona is being seen in follow up for history of epigastric abdominal discomfort and blood tinged spit ups and my final recommendations will be communicated back to the requesting physician by way of the shared medical record. ALLERGIES: ALLERGIES Allergen Reactions - Augmentin [Amoxicil* Diarrhea - Sulfamethoxazole Hives CURRENT MEDICATION: buPROPion XL (WELLBUTRIN XL) 150 mg 24 hr tablet 150 tablets. omeprazole (PRILOSEC) 20 mg capsule Take 1 capsule by mouth once daily. sertraline (ZOLOFT) 100 mg tablet Take 1.5 mg by mouth. 150 mg clonazePAM (KLONOPIN) 0.5 mg tablet Take 0.5 mg by mouth twice daily as needed. can take 1-2 tablets guanFACINE (INTUNIV) 1 mg ER 24 hr tablet(s) Take 4 mg by mouth once daily. cholecalciferol, Vitamin D3, (VITAMIN D3) 1,250 mcg (50,000 unit) cap capsule Take 1 capsule by mouth one time a week. Last seen: September 2019 . HISTORY: The patient is a 15 year old female accompanied by her Mother with a history of epigastric abdominal discomfort and blood tinged mucous At the time of her last visit Nona Antonio is a 14 year old, female presenting for evaluation for hemoptysis for which she has been seen by peds pulmonary at [facility] and now here for further evaluation and testing. She states that this is not hematemesis and there is no issues with upper abdominal pain nor heartburn If it is from GI tract source can be esophagitis, PUD< gastritis and advised to avoid NSAID and also to check H pylori BT that was negative Can also be a Suzette daley tear of esophagus however, she is not vomiting With regards to her neuropsychiatric issues she is followed and managed by a psychiatrist I the [place] area Since she was last seen she was doing well until the past 2 weeks She developed some epigastric discomfort Then she started to have the hiccups and intermittent blood tinged mucous No nose bleeds she did have one episode of vomiting at school that did not have blood No dysphagia no odynophagia She does not take NSAID nor aspirin No spicy foods She does tend to be constipated and no reports of diarrhea or change in her stools No history of liver or bleeding no mouth sores She was seen previously by peds pulmonary and peds ENT REVIEW OF SYSTEMS: Constitutional:- No significant change in weight, no fatigue. ENDO:- no diabetes or thyroid disease CVS:- No history of heart disease, No history of heart murmurs RESP:- no wheezing, frequent cough or shortness of breath GI:- Negative history of blood in stools or black stools, diarrhea, hematochezia, problem swallowing and loss of appetite Positive history of abdominal discomfort, abdominal pain and nausea NEURO:-Normal growth and development. :-negative Integumentary:- Negative for lesions, rash, and itching. Musculoskeletal:- Negative Psychiatry:-negative for sleep disturbance and recent psychosocial stressors anxiety Hematologic/Lymphatic:-No history of anemia, bruising, bleeding abnormalities. Allergic/Immunologic:-no hay fever POSITIVE for drug allergies PAST MEDICAL HISTORY Diagnosis Date - ADHD - Anxiety - Depression - NEGATIVE MEDICAL HISTORY 04/01/08 Normal color vision PAST SURGICAL HISTORY Procedure Laterality Date - NONE FAMILY HISTORY Problem Relation Age of Onset - Hypertension Father - other (kidney stones) Father - Breast Cancer Paternal Grandmother - Breast Cancer Maternal Grandmother 68 - Hypertension Maternal Grandfather - Diabetes Other paternal side - Hypertension Other maternal AND paternal sides - Stroke Other maternal AND paternal sides Review of SOCIAL HX: Lives at home with parents In school in 11 th grade PHYSICAL EXAM: Last 3 Encounter Wt Readings: Date: Wt: 04/20/2020 49.1 kg (108 lb 3.9 oz) (20 %, Z= -0.84)* 10/08/2019 47.7 kg (105 lb 2.6 oz) (17 %, Z= -0.96)* 09/15/2019 47.7 kg (105 lb 1.6 oz) (17 %, Z= -0.95)* Vital Signs:-BP 100/66 Pulse 79 Temp (Src) 97.5 (Temporal) Resp 18 Ht 5' 2.205 (1.58m) Wt 108 lb 3.9 oz (49.1kg) SpO2 100% LMP 08/02/2019 BMI 19.67 kg/(m2). , General/Constitutional:- alert and active in no apparent distress Head:- Normocephalic Eye:- conjunctiva clear, no icterus Neck/Lymphatic:- supple, no adenopathy Cardiac:- Regular Rate and Rhythm without murmurs or clicks Respiratory:- clear to auscultation Gastrointestinal:- Abdomen is soft, non-tender; BS normal and there are no masses or organomegaly Rectal :- deferred exam Neuro:- Muscle tone normal Genitourinary:- deferred Musculoskeletal :- Extremities with FROM and no problems identified. Extremity:- Normal exam of the extremities. No clubbing, cyanosis, or edema. Skin:-normal color, no jaundice or rash PREVIOUS LABS: Appointment on 09/15/2019 Component Date Value Ref Range Status - WBC 09/15/2019 9.20 3.70 - 11.00 k/uL Final Comment: Result checked and verified No clot detected. - RBC 09/15/2019 5.13 3.90 - 5.20 m/uL Final - Hemoglobin 09/15/2019 14.0 11.5 - 15.5 g/dL Final - Hematocrit 09/15/2019 41.8 36.0 - 46.0 % Final - MCV 09/15/2019 81.5 80.0 - 100.0 fL Final - MCH 09/15/2019 27.3 26.0 - 34.0 pG Final - MCHC 09/15/2019 33.5 30.5 - 36.0 g/dL Final - RDW-CV 09/15/2019 13.6 11.5 - 15.0 % Final - Platelet Count 09/15/2019 371 150 - 400 k/uL Final Comment: Result checked and verified No clot detected. - MPV 09/15/2019 9.3 9.0 - 12.7 fL Final - Neut% 09/15/2019 56.0 % Final - Abs Neut (ANC) 09/15/2019 5.15 1.45 - 7.50 k/uL Final - Lymph% 09/15/2019 38.0 % Final - Abs Lymph 09/15/2019 3.50 1.00 - 4.00 k/uL Final - Canyon% 09/15/2019 6.0 % Final - Abs Canyon 09/15/2019 0.55 <0.87 k/uL Final - Eosin% 09/15/2019 0.0 % Final - Abs Eosin 09/15/2019 0.00 <0.46 k/uL Final - Baso% 09/15/2019 0.0 % Final - Abs Baso 09/15/2019 0.00 <0.11 k/uL Final - ANC(includeSEG+BAND) 09/15/2019 5.15 k/uL Final - Red Cell Morph 09/15/2019 SEE COMMENT Final Unremarkable - Platelet Estimate 09/15/2019 Platelet estimate adequate Final - Diff Type 09/15/2019 Manual Diff Final - Vitamin D 25 Hydroxy 09/15/2019 12.6* 31.0 - 80.0 ng/mL Final Comment: Classification of 25 OH Vitamin D status: Insufficiency/Moderate Deficiency: < or = 30 ng/mL Sufficiency/Optimal Levels: 31 to 80 ng/mL Toxicity: > 100 ng/mL Test performed by chemiluminescent immunoassay. - Transglutaminase Ab, IgA 09/15/2019 2 <20 Units Final Comment: Negative : < 20 Units Weak Positive : 20 - 30 Units Moderate Pos to Strong Pos: >30 Units The following results were obtained with the [employer] QUANTA Lite h-tTG IgA PRISCILLA. h-tTG IgA values obtained with different manufacturers' assay methods may not be used interchangeably. The magnitude of the reported IgA levels cannot be correlated to an endpoint titer. - IgA 09/15/2019 109 78 - 391 mg/dL Final - Lipase 09/15/2019 42 16 - 61 U/L Final Comment: (NOTE) Reference ranges for this patient's age group have not been established. These reference ranges reflect verified or established ranges for the adult population. Interpret these ranges with caution using the clinical context and additional reference resources. - Egg White IgE 09/15/2019 <0.35 <0.35 KU/L Final - Egg White Class 09/15/2019 0 0 Final - Milk Cow IgE 09/15/2019 <0.35 <0.35 KU/L Final - Milk Cow Class 09/15/2019 0 0 Final - Wheat IgE 09/15/2019 <0.35 <0.35 KU/L Final - Wheat Class 09/15/2019 0 0 Final - Fairburn IgE 09/15/2019 <0.35 <0.35 KU/L Final - [place] Class 09/15/2019 0 0 Final - Peanut IgE 09/15/2019 <0.35 <0.35 KU/L Final - Peanut Class 09/15/2019 0 0 Final - Soybean IgE 09/15/2019 <0.35 <0.35 KU/L Final - Soybean Class 09/15/2019 0 0 Final - Crab IgE 09/15/2019 <0.35 <0.35 KU/L Final - Crab Class 09/15/2019 0 0 Final - Shrimp IgE 09/15/2019 <0.35 <0.35 KU/L Final - Shrimp Class 09/15/2019 0 0 Final - Crockett IgE 09/15/2019 <0.35 <0.35 KU/L Final - Crockett Class 09/15/2019 0 0 Final - Tuna IgE 09/15/2019 <0.35 <0.35 KU/L Final - Tuna Class 09/15/2019 0 0 Final - TB Nil 09/15/2019 0.02 IU/mL Final - TB1 Ag minus Nil 09/15/2019 0.00 <0.35 IU/mL Final - TB2 Ag minus Nil 09/15/2019 0.01 <0.35 IU/mL Final - Mitogen minus Nil 09/15/2019 >10 Final - TB Result 09/15/2019 Negative Negative Final - TB Interpretation 09/15/2019 No evidence of current or previous infection with Mycobacterium tuberculosis. Final - TSH 09/15/2019 1.620 0.510 - 4.300 uU/mL Final Comment: If the patient is , TSH reference range varies by gestational period: First Trimester (weeks 9-12): 0.180-2.990 mcIU/mL Second Trimester: 0.110-3.980 mcIU/mL Third Trimester: 0.480-4.710 mcIU/mL Bereket Junior et al. A Practical Approach for the Verifications and Determination of Site- and Trimester-Specific Reference Intervals for Thyroid Function tests in . Thyroid, 2019:29:3:412-420. Luca Castanon, et al. 2017 Guidelines of the [place] [employer] for the Diagnosis and Management of Thyroid Disease during and the . Thyroid, 2017:27:3:315-389. Reference ranges were not locally established for this patient's age group. The normal values are based on the following source: Tamie Gray V. Reference Ranges for Adults and Children: Pre-analytical Considerations. [facility] - Free T4 09/15/2019 1.2 0.8 - 1.5 ng/dL Final IMPRESSION: Teen who has anxiety issues and presented at least 6 months prior with hemoptysis She was seen in the ER and had a CXR and TB testing that was negative Also seen by peds pulmonary She was to have an EGD however, due to the pandemic it was cancelled She now presents again with heartburn, burping and bloody spit ups Restarted the PPI Etiology could be from GI tract, esophagitis, gastritis however , no know risk factors for portal hypertension to suggest varices which is highly unlikely She is not coughing up blood and no history of nose bleeds to suggest either pulmonary or ENT source Her last labs were unremarkable and will check labs today Offered an EGD with biopsies to be done Procedure and risks explained to mother and patient questions answered and consent signed Pre op COVID testing ordered Advised clear liquids for dinner the night prior to the EGD Increase Omeprazole 20 mg bid Avoid spicy foods No NSAID no aspirin If no source found Refer back to ENT and pulmonary RECOMMENDATIONS: To further evaluate we discussed to proceed with testing as listed below. LABS: CBC, CMP, Iron Panel, PT/INR PROCEDURES: EGD IMAGING: None FOLLOW UP: 1 week after endoscopy Worrisome signs and symptoms discussed with patient and caregiver. Taylor Castellano MD 04/20/2020 Electronically signed CC. Micky Gamino MD [id number] [facility] [id number] Normal [facility] Protimeon 04-20-2020 PT Coag (PPP) [Time] 1.0 s Normal 0.9-1.3 [facility] Comment on above: Result Comment: Dora min K Antagonist (VKA) Therapeutic Range: INR 2 to 3 (Target INR of 2.5) Note: For patients treated with VKA drugs, such as warfarin, the [place] [employer] 2012 Guideline recommends a therapeutic INR range of 2 to 3 (target INR of 2.5). This recommendation includes high-risk patients with antiphospholipid syndrome with previous arterial or venous thromboembolism, current-generation mechanical or bioprosthetic aortic heart valve replacement. Note: Patients with mechanical aortic valve replacement and additional risk factors for thromboembolic events (atrial fibrillation, previous thromboembolism, LV dysfunction, hypercoagulable conditions) or an older generation mechanical AVR (i.e., ball in-Cage) or any mechanical MVR should have a INR therapeutic range of 2.5 to 3.5 (target INR of 3). Syed GH, et al. Chest 2012, 141:7S-47S Danielle BORRERO et al. JACC 2017, 70: 252-289 Performed By: #### R ETIHAYDE McbrideA, VITD #### [facility] [employer] [facility] [place] [address] PT Coag (PPP) [Time] 11.1 s Normal 9.7-13.0 [facility] Comment on above: Performed By: #### R ETIC LIPA, VITD #### [place] [id number] Reticulocyteon 04-20-2020 Abs Retic 0.077 M/uL Normal 0.0180-0.1 000 [facility] Comment on above: Performed By: #### R HAYDE VELOZA VITD #### [place] [id number] Retic% 1.6 % Normal 0.4-2.0 [facility] Comment on above: Performed By: #### Kendrick ETIHAYDE McbrideA VITD #### [place] [id number] Vitamin D 25 Hydroxyon 04-20 Vitamin D 25 Hydroxy 33.6 ng/mL Normal 31.0-80.0 [facility] Comment on above: Result Comment: Clas sification of 25 OH Vitamin D status: Insufficiency/Moderate Deficiency: < or = 30 ng/mL Sufficiency/Optimal Levels: 31 to 80 ng/mL Toxicity: > 100 ng/mL Test performed by chemiluminescent immunoassay. Performed By: #### R ETIHAYDE McbrideA, VITD #### [place] [id number] Progress Noteon 12-20-2019 Manager Of Community Relations Authentication Interface Message Text Nona Antonio is a 14 y.o. female who is here for evaluation of scars from a dog bite. She suffered a dog bite to the face approximately 10 months ago in February 2019. She is accompanied today by her mother during the video visit. They report that Nona was at a friends house and she attempted to hug the dog around the abdomen from the back. The dog turned around and bit her. The bite was to the face mainly the right lower chin and left cheek. She was immediately taken to an OSH ED. The wound was irrigated and the larger bites were approximated using a nylon sutures. She did not have any postoperative infections. Her main concern today is in regard to the hypertrophy of the scar of the left mid cheek. She reports that it is continuing to be erythematous and is also associated with adherence and pain. The other scars seem to have settled down. She is interested in a scar revision. Past Medical History: Diagnosis Date ? ADHD ? ADHD (attention deficit hyperactivity disorder) ? Anxiety ? Asthma ? Asthma ? Concussion ? Headache(784.0) ? Otitis media as a toddler ? Pneumonia around age 1 ? Psychiatric problem History reviewed. No pertinent surgical history. Current Outpatient Medications: ? omeprazole (PRILOSEC) 10 MG capsule, Take by mouth daily, Disp: , Rfl: ? cholecalciferol (D3-50) 1.25 MG (64569 UT) capsule, Take 50,000 Units by mouth once a week, Disp: , Rfl: ? sucralfate (CARAFATE) 1 GM/10ML oral suspension, Take 10 mL after breakfast and before bedtime for 5 days, Disp: , Rfl: ? omeprazole (PRILOSEC) 20 MG capsule, Take 20 mg by mouth daily, Disp: , Rfl: ? buPROPion (WELLBUTRIN XL) 150 MG XL tablet, 1 Tab daily, Disp: , Rfl: ? ADDERALL XR, 10MG, 10 MG capsule, , Disp: , Rfl: ? clonazePAM (KLONOPIN) 0.5 MG tablet, Take 0.5 mg by mouth every 12 hours as needed, Disp: , Rfl: ? clonazePAM (KLONOPIN) 0.5 MG tablet, Take 0.5 mg by mouth daily, Disp: , Rfl: ? guanFACINE HCl (INTUNIV) 2 MG ER tablet, , Disp: , Rfl: ? oseltamivir (TAMIFLU) 75 MG capsule, , Disp: , Rfl: ? sertraline (ZOLOFT) 50 MG tablet, , Disp: , Rfl: ? guanFACINE (INTUNIV) 1 MG ER tablet, Take 4 mg by mouth daily, Disp: , Rfl: ? omeprazole (PRILOSEC) 20 MG capsule, , Disp: , Rfl: ? sertraline (ZOLOFT) 100 MG tablet, Take 150 mg by mouth daily , Disp: , Rfl: ? guanFACINE (INTUNIV) 1 MG tablet, Take 2 mg by mouth , Disp: , Rfl: Allergies Allergen Reactions ? Bactrim [Sulfamethoxazole-Trimethopr im] Hives ? Sulfamethoxazole Hives ? Amoxicillin-Pot Clavulanate Diarrhea Review of Systems: Constitutional: Negative. Negative for fever. HENT: Negative for rhinorrhea. Negative for congestion, sneezing, drooling and ear discharge. Eyes: Negative. Respiratory: Negative for cough and wheezing. Negative for apnea, choking and stridor. Cardiovascular: Negative. Gastrointestinal: Negative. Genitourinary: Negative. Musculoskeletal: Negative for joint swelling and extremity weakness. Skin: Negative. Neurological: Negative. Hematological: Negative. Physical Exam: Nursing note and vitals reviewed. Constitutional: The patient is well-developed and well-nourished. Head: Normocephalic, atraumatic. No cranial deformity or facial anomaly. Nose: No Nasal discharge present. No deformity. Septum and mucosa intact. Mouth/Throat: Mucous membranes are moist. Dentition is normal. Oropharynx is clear. Pharynx is normal. Eyes: Extraocular motions are normal. Pupils are equal, round, and reactive to light. Neck: Normal range of motion. Neck supple. No masses or lymphadenopathy Skin: Skin is warm. Capillary refill takes less than 3 seconds. Turgor is normal. No rash noted. Specific exam: There are three scars from where the dog bit this child on the face. Currently there is some amount of inflammation and all 3 of the lacerations. The longer scar to the left cheek is jagged with some width and hypertrophy, (Nona complain of tenderness to the superior portion of this scar). The scar to the chin is inflamed but healing well (Nona complains of numbness). It is approximately 3 cm in length and 0.5-0.8 cm in width. The surrounding skin is intact. There is no evidence of drainage or infection. Impression: Severe dog bite to the face. Incisions healing well except for left cheek scar. Recommendations: We went over scar management techniques which included massage, sunscreen and scar creams. We described to the family that it takes 12-18 months for scars to completely mature. We discussed scar revision as an option today. I described the procedure in detail for both the patient and mother. I spent a total of 30 minutes with this patient, of which, >15 minutes was spent counseling and/or coordinating care. We discussed a summary of the treatment plan with the patient and family including details on coordination of care. Our discussion included: timing and indications of surgery; possible risks and benefits; non-surgical options; and expected outcomes. They will contact us to schedule the scar revision under general anesthesia in the next 6 to 9 months. Nagi Tucker MD, FACS Chief, Division of Plastic Surgery [facility] 12/20/2019 This is a telemedicine video visit requested by the patient/guardian that was performed with the originating site at home and the distant site at hospital. This visit occurred during the Coronavirus (COVID-19) Public Health Emergency. Normal [facility] Progress Noteon 09-03-2019 Manager Of Community Relations Authentication Interface Message Text HPI Nona Antonio , a 14 y.o. 7 m.o. is here today with her mother for consultation regarding hemotysys. Started 1 week ago with sore throat. Started to cough 4 days ago and felt stuff come up and blood mixed with sputum came into her hand. After a few episodes, went to Emergency Department. CBC, BMP, d Dimer all normal. Also had normal chest X-ray at that time. Treated with omeprazole. Omeprazole in Emergency Department Tues at home on Fri, then blood seemed to stop She says this also has improved her chest pain. Reports no longer having blood with her cough. Was bright red. Maybe dark, there were clots. Nona has had infrequent symptoms of dysphagia in the past, feeling that she could not swallow. Infrequent over the past 2 months. Occasional heartburn. None this past week. Says what she is worried about is an ulcer NO wt loss. Denies tobacco. Denies vaping. Denies sexual activity. Also complains of back and chest pain, improved by lying down. Coughing makes it worse. Taking a deep breath makes it worse. Cough medicine settled cough. Now no blood when coughing. Still some greenish sputum production. I love blood likes to watch venipuncture, procedures. ROS General: no fever and no weight loss, tends to be a tired person. Hard to distinguish with her depression anxieity, worse recently Head/Face/Neck: no swollen glands Eyes: no itching and no redness ENT: no hoarseness and no frequent ear infections She does not snore. Respiratory: as above Cardiovascular: no cyanosis and no syncope GI: see above Musculoskel: no joint pain and no myalgias Skin: no rash Neuro[facility] Psychiatric: Anxiety: sertaline and intuitive. clonipin for rescue anxiety attacks; used once this week Hematologic: no easy bruising and no enlarged lymph nodes Nona has not had serious infections.. History Weight: 2.693 kg Gestation Age: 36 wks Days in Hospital: 3.0 36 week baby. No oxygen requirements. Jaundice treatment PMH: Surgeries:none Hosp (other than above) none Immunizations are up to date. Influenza immunization: Has already had influenza immunization this fall. SH: mother and father live at home. There is no secondhand smoke exposure.. Nona does attend school. 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 Who in their right minds enjoys school Bomb threats and fear of nuclear war. Family History Problem Relation Age of Onset Asthma Father as a younger child Allergies Father Eczema Father Hypertension Father Obstructive Sleep Apnea Father CPAP Allergic Rhinitis Father Depression Maternal Aunt Obstructive Sleep Apnea Maternal Uncle Depression Maternal Grandmother Insomnia Maternal Grandmother Obstructive Sleep Apnea Maternal Grandmother CPAP Hypertension Maternal Grandfather Obstructive Sleep Apnea Maternal Grandfather CPAP No known problems Mother Asthma Brother cough varient as a younger child Allergy Food Neg Hx Cystic Fibrosis Neg Hx Physical Exam: BP 90/61 Pulse 70 Temp 36.8 C (98.2 F) (Temporal) Resp 18 Ht 159.6 cm Wt 49.5 kg SpO2 97% BMI 19.43 kg/m 31 %ile (Z= -0.49) based on CDC (Girls, 2-20 Years) [id number] data based on Stature recorded on 09/03/2019. 25 %ile (Z= -0.66) based on CDC (Girls, 2-20 Years) [id number] data using vitals from 09/03/2019.; Body mass index is 19.43 kg/m . 32 %ile (Z= -0.46) based on CDC (Girls, 2-20 Years) BMI-for-age based on BMI available as of 09/03/2019. . General: social Cough was noted during exam. Hydration: well-hydrated, mucous membranes moist, good skin turgor Head: normocephalic, atraumatic Eyes: minimal conjunctival injection, pupils reactive, gaze conjugate Ears: no external swelling or tenderness, canals clear, tympanic membranes normal landmarks There is no frontal or maxillary sinus tenderness. Nose: nares patent, normal mucosa Mouth/Throat: erythema posteriorly, no exudate Neck: nontender, no mass, no focal lymphadenopathy Chest:normal contour with tenderness Lungs: breath sounds clear and equal bilaterally Cardiovascular: regular rate and rhythm, no murmur, no gallop, normal S1, S2, pulses - plus 2/4 Abdomen: soft, nontender, nondistended, no hepatosplenomegaly, no mass, normal bowel sounds Extremities: no clubbing, cyanosis or edema of the extremities Back: symmetrical Skin: warm, dry, no rash, facial sccars consistent with old dog bites Neuro: alert, normal tone, no focal deficit Did not cooperate for PFTs. Impression: Based history, response to medications and exam, Nona most likely had a viral illness with cough which is resolving. NO evidence of chronic airway or lung disease It is dificult to know now if the blood was of nasal, lung or esphageal origin but resolution with omeprazole is reassuring Symptoms of chest pain improved on omeprazole Her pysch issues complicate history taking and performance of PFTs advised to seek GI consultation if there are further concerns about gastric ulcer Patient Instructions Continue your current medications including omeprazole Take tylenol or ibuprofen for achiness Call with any question or problem. Normal [facility] D-dimer Quantitativeon 09-01 D-dimer Quantitative <0.17 Normal <0.50 [facility] Comment on above: Result Comment: Repe ated and verified. D-dimer result <0.50 mg/L-FEU is Negative D-dimer result >0.50 mg/L-FEU is Positive 0.50 mg/L-FEU is the D-dimer cut off to exclude DVT(deep) vein thrombosis and PE(pulmonary embolism) in patients with a low pre-test probability. Performed By: #### Q DIMR #### [address] [address] HCG,Urineon 09-01-2019 Beta HCG ( test) Ql (U) Negative Normal [facility] Comment on above: Result Comment: Nonp regnant females and males-Negative females-Positive Performed By: #### H CGUR #### [address] [address] Comp Metabolic Panelon 08-31 Albumin [Mass/Vol] 4.2 g/dL Normal 3.2-4.5 [facility] Comment on above: Performed By: #### C MP #### [address] [address] ALP [Catalytic activity/Vol] 60 U/L Normal 48-111 [facility] Comment on above: Performed By: #### C MP #### [address] [address] ALT [Catalytic activity/Vol] 7 U/L Normal 0-31 [facility] Comment on above: Performed By: #### C MP #### [address] [address] AST [Catalytic activity/Vol] 19 U/L Normal 0-31 [facility] Comment on above: Performed By: #### C MP #### [address] [address] Bili,Total 1.0 mg/dl Normal 0.0-1.0 [facility] Comment on above: Result Comment: Premature : 1 Day 1.0-6.0 mg/dl 2 Day 6.0-8.0 mg/dl 3-5 Day 10.0-15.0 mg/dl Performed By: #### C MP #### [address] [id number] Calcium [Mass/Vol] 9.2 mg/dL Normal 7.6-11.0 [facility] Comment on above: Performed By: #### C MP #### [address] [address] Chloride [Moles/Vol] 103 mmol/L Normal 96-108 [facility] Comment on above: Performed By: #### C MP #### [address] [address] CO2 [Moles/Vol] 24.6 mmol/L Normal 22.0-29.0 [facility] Comment on above: Performed By: #### C MP #### [address] [address] Creatinine [Mass/Vol] 0.88 mg/dL Normal 0.50-1.00 [facility] Comment on above: Result Comment: Premature 0.3-1.0 mg/dL Performed By: #### C MP #### [address] [address] Glucose [Mass/Vol] 90 mg/dL Normal 70-99 [facility] Comment on above: Result Comment: Criteria for Diagnosis of Diabetes(Effective 01/14/11): Fasting specimen (no caloric intake for at least 8 hours). <100 mg/dl Normal 100-125 mg/dl Increased Risk for Diabetes >125 mg/dl Diagnostic for Diabetes Random Glucose (any time of day without regard to last meal). >=200 mg/dl plus Classic Symptoms of Diabetes Performed By: #### C MP #### [address] [address] Potassium [Moles/Vol] 3.8 mmol/L Normal 3.3-5.1 [facility] Comment on above: Performed By: #### C MP #### [address] [address] Protein [Mass/Vol] 7.0 g/dL Normal 6.0-8.0 [facility] Comment on above: Performed By: #### C MP #### [address] [address] Sodium [Moles/Vol] 139 mmol/L Normal 133-145 [facility] Comment on above: Performed By: #### C MP #### [address] [id number] Urea nitrogen [Mass/Vol] 17 mg/dL Normal 4-19 [facility] Comment on above: Performed By: #### C MP #### [address] [address] Complete Blood Counton 08-31 Differential Complete Manual Normal [facility] Comment on above: Performed By: #### C BC #### [address] [id number] Erythrocyte distribution width (RBC) [Ratio] 13.4 % Normal 0.0-14.4 [facility] Comment on above: Performed By: #### C BC #### [address] [address] Hematocrit (Bld) [Volume fraction] 37.5 % Normal 37.0-46.0 [facility] Comment on above: Performed By: #### C BC #### [address] [address] Hemoglobin (Bld) [Mass/Vol] 12.8 g/dL Normal 12.0-15.0 [facility] Comment on above: Performed By: #### C BC #### [address] [id number] Immature granulocytes/100 WBC (Bld) 0.30 % Normal [facility] Comment on above: Result Comment: Tabatha ture Granulocyte Percent includes promyelocytes, myelocytes, and metamyelocytes. IG% > 1.0 indicates a left shift is present. With automated differentials, bands are included in the neutrophil count and not in the Immature Granulocyte Percent. Performed By: #### C BC #### [address] [address] MCH (RBC) [Entitic mass] 27.9 pg Normal 25.0-35.0 [facility] Comment on above: Performed By: #### C BC #### [address] [address] MCHC (RBC) [Mass/Vol] 34.1 % Normal 31.0-37.0 [facility] Comment on above: Performed By: #### C BC #### [address] [address] MCV (RBC) [Entitic vol] 81.7 fL Normal 78.0-96.0 [facility] Comment on above: Performed By: #### C BC #### [address] [address] Nucleated RBC/100 WBC (Bld) [Ratio] 0.0 % Normal -1.0-0.0 [facility] Comment on above: Performed By: #### C BC #### [address] [address] Platelet mean volume (Bld) [Entitic vol] 9.1 fL Normal [facility] Comment on above: Result Comment: MPV is platelet range and age dependent Performed By: #### C BC #### [address] [address] Platelets (Bld) [#/Vol] 300 10*3/uL Normal 150-450 [facility] Comment on above: Performed By: #### C BC #### [address] [address] RBC (Bld) [#/Vol] 4.59 10E12/L Normal 4.10-4.80 [facility] Comment on above: Performed By: #### C BC #### [facility] [address] [place] [address] WBC (Bld) [#/Vol] 10.5 10*3/uL Normal 4.5-13.0 [facility] Comment on above: Performed By: #### C #### [facility] [address] [place] [address] ED Provider Progress Noteon 08-31-2019 Manager Of Community Relations Authentication Interface Message Text Nona Antonio : 2005 Chief Complaint Patient presents with Hemoptysis Allergies Allergen Reactions Bactrim [Sulfamethoxazole-Trimethopr im] Hives Augmentin [Amoxicillin-Pot Clavulanate] Diarrhea DOS: 08/31/2019 14 y/o with PMH of ADHD and anxiety presents with hemoptysis. States last night, spontaneously started coughing up blood at midnight, Had 4 episodes of coughing of blood today. Reporting a tablespoon of blood with episodes. No preceding illness. Per dad, unusual amount of hiccups today. Also having substernal chest pain that worsens with deep breathing , back pain, dizziness, and weak legs. PMHx o GERD andf concussion on August 14 with follow up. No recent travel, exposure to TB, estrogen use, family history of clotting disorders or PE/DVT risk factors. Review of Systems Constitutional: Negative for chills and fever. HENT: Negative for congestion, rhinorrhea, sinus pressure, sinus pain, sneezing, sore throat, trouble swallowing and voice change. Eyes: Negative for pain, redness and visual disturbance. Respiratory: Negative for apnea, cough, choking, chest tightness, shortness of breath, wheezing and stridor. Cardiovascular: Positive for chest pain. Negative for palpitations and leg swelling. Gastrointestinal: Negative for abdominal pain, blood in stool, constipation, diarrhea, nausea and vomiting. Genitourinary: Negative for dysuria, flank pain and hematuria. Musculoskeletal: Positive for back pain. Negative for neck pain and neck stiffness. Skin: Negative for pallor, rash and wound. Allergic/Immunologic: Negative for food allergies and immunocompromised state. Neurological: Positive for dizziness and weakness. Negative for light-headedness and headaches. Past Medical History: Diagnosis Date ADHD (attention deficit hyperactivity disorder) Anxiety Asthma Headache(784.0) Psychiatric problem History reviewed. No pertinent surgical history. Pediatric History Patient Guardians Joanna Antonio (Mother) Polo Antonio (Father) Patient does not qualify to have social determinant information on file (likely too young). Other Topics Concern Behavioral problems Not Asked Interpersonal relationships Not Asked Sad or not enjoying activities Not Asked Suicidal thoughts Not Asked Poor school performance Not Asked Reading difficulties Not Asked Speech difficulties Not Asked Writing difficulties Not Asked Inadequate sleep Not Asked Excessive TV viewing Not Asked Excessive video game use Not Asked Inadequate exercise Not Asked Sports related Not Asked Poor diet Not Asked Poor oral hygiene Not Asked Bike safety Not Asked Vehicle safety Not Asked Social History Narrative Not on file ED Triage Vitals Date and Time Temp Temp src Pulse Resp BP SpO2 Weight User 08/31/19 1908 36.4 C (97.5 F) Temporal 107 12 121/71 100 % 49.9 kg MAW Physical Exam Vitals signs and nursing note reviewed. Constitutional: General: She is not in acute distress. Appearance: Normal appearance. She is normal weight. She is not ill-appearing, toxic-appearing or diaphoretic. HENT: Head: Normocephalic and atraumatic. Right Ear: External ear normal. Left Ear: External ear normal. Nose: Nose normal. No congestion or rhinorrhea. Mouth/Throat: Mouth: Mucous membranes are moist. Pharynx: No oropharyngeal exudate or posterior oropharyngeal erythema. Oropharynx is clear. Eyes: Extraocular Movements: Extraocular movements intact. Conjunctiva/sclera: Conjunctivae normal. Pupils: Pupils are equal, round, and reactive to light. Neck: Musculoskeletal: Normal range of motion and neck supple. No neck rigidity or muscular tenderness. Cardiovascular: Rate and Rhythm: Normal rate and regular rhythm. Pulses: Normal pulses. Heart sounds: Normal heart sounds. No murmur. No gallop. Pulmonary: Effort: Pulmonary effort is normal. No respiratory distress. Breath sounds: Normal breath sounds. No stridor. No wheezing or rales. There is no cough present. Chest: Chest wall: No tenderness. Abdominal: General: Bowel sounds are normal. There is no distension. Palpations: Abdomen is soft. There is no mass. Tenderness: There is tenderness (Epigastric). There is no right CVA tenderness, left CVA tenderness, guarding or rebound. Musculoskeletal: Normal range of motion. General: No swelling, tenderness, deformity or signs of injury. Right lower leg: No edema. Left lower leg: No edema. Lymphadenopathy: Cervical: No cervical adenopathy. Skin: General: Skin is warm and dry. Coloration: Skin is not jaundiced or pale. Findings: No erythema. Procedures MDM Number of Diagnoses or Management Options Blood-streaked sputum: Hemoptysis: Diagnosis management comments: 14 y/o female presents with acute onset of hemoptysis w/o preceding illness. Concern for PE, PUD, Malignancy, TB, Bronchiectasis, Suzette Daley tear Vitals WNL ROS and PE as above. Lab testing for PE w/o abnormalities that correlate with symptoms. D Dimer WNL CTPE deferred for now. Imaging w/o PNA or other acute lung pathology. Reports no travel or exposure to at risk TB populations. Concern remains for gastric or esophageal pathology. Patient instructed to take PPI daily for possible GI pathology and follow up to graphics coordinator. Multiple reassessments w/o findings of distress or recurrent episodes of hemoptysis. All findings were explained to all available caretakers and the patient in simple to understand language. All questions were answered. Caretakers understand the plan and the return precautions and agree with both. Discharged home in stable condition with follow up listed in discharge paperwork. ED Course: Diagnosis' considered: Labs/Radiology: Consults: No orders of the defined types were placed in this encounter. Medical Record/Transferring Institution Record: Treatment/Reassessment: Encounter Documentation/Handoff: Final Clinical Impression/Diagnosis as of Sep 01 212 Hemoptysis Blood-streaked sputum Attending note: I saw and evaluated the patient. I reviewed the resident s note and agree except and/or additionally Pt describes sensation of something coming up in her chest and then an urge to cough to expel is. I suspect source of blood is GI tract. Pt describes forceful hiccups that occurred just prior to first episode last night and it is conceiveable that Pt may have sustained mucosal injury to GE junction and this is expected to be self limited. Pt is without signs of respiratory distress on my exam. Electronically signed: 10:52 PM 09/03/19 Jose Miguel Pradhan MD Normal [facility] Fibrinogenon 08-31-2019 Fibrinogen 235.9 mg/dL Normal 150.0-410. 0 [facility] Comment on above: Performed By: #### F BG #### [address] [address] Manual Differentialon 2019 Absolute Neutrophil No. 6.4 Normal [facility] Comment on above: Performed By: #### M DIFF #### [address] [address] Anisocytosis Ql (Bld) Slight Normal [facility] Comment on above: Performed By: #### M DIFF #### [address] [address] Band form neutrophils/100 WBC (Bld) 0 % Low 5-11 [facility] Comment on above: Performed By: #### M DIFF #### [address] [address] Hypochromia Slight Normal [facility] Comment on above: Performed By: #### M DIFF #### [address] [address] Lymphocytes 30 % Normal 25-45 [facility] Comment on above: Performed By: #### M DIFF #### [address] [address] Metamyelocytes 0 % Normal 0-0 [facility] Comment on above: Performed By: #### M DIFF #### [address] [address] Monocytes 9 % High 3-6 [facility] Comment on above: Performed By: #### M DIFF #### [address] [address] Myelocytes 0 % Normal 0-0 [facility] Comment on above: Performed By: #### M DIFF #### [address] [address] Poikilocytosis Slight Normal [facility] Comment on above: Result Comment: Slig ht # Pyknocytes Performed By: #### M DIFF #### [address] [address] Promyelocytes 0 % Normal 0-0 [facility] Comment on above: Performed By: #### M DIFF #### [address] [address] Segmented neutrophils/100 WBC (Bld) 61 % Normal 34-64 [facility] Comment on above: Performed By: #### M DIFF #### [place] [address] Partial Thromboplastin Timeo n 08-31-2019 aPTT Coag (Bld) [Time] 25.2 s Normal 0.0-40.0 [facility] Comment on above: Result Comment: Children < 1 yr of age may have a slightly prolonged activated partial thromboplastin time as the test is dependent on the level to which their coagulation factors have developed. Performed By: #### P TT #### [address] [address] Prothrombin Timeon 0 INR Coag (PPP) [Relative time] 1.1 Normal 0.7-1.3 [facility] Comment on above: Result Comment: Therapeutic Range for Oral Anticoagulant Anticoagulant Therapy INR Standard Therapy 2.0-3.0 Prophylaxsis/Treatment of venous thrombosis Treatment of PE Prevention of systemic embolism Tissue heart valves Acute Myocardial Infarction (to prevent systemic embolism) Valvular heart disease Atrial fibrillation Higher Intensity 2.5-3.5 Mechanical Prosthetic valves The INR is used only for patients on stable oral anticoagulant therapy. It makes no significant contribution to the diagnosis or treatment of patients whose PT is prolonged for other reasons. Performed By: #### P T #### [address] [address] PT Coag (PPP) [Time] 11.4 s Normal 8.5-14.0 [facility] Comment on above: Result Comment: Children < 1 yr of age may have a slightly prolonged prothrombin time as the test is dependent on the level to which their coagulation factors have developed. Performed By: #### P T #### [address] [address] eGFRon 08-31-2019 GFR/1.73 sq M.predicted MDRD (S/P/Bld) [Vol rate/Area] see below Normal [facility] Comment on above: Result Comment: Refe rence range: > 3 months: >90 ml/min/1.73m^2 Ref. Range change effective 11/03/2017 Unable to calculate EGFR; height not available. Performed By: #### E GFR #### [address] [address] Progress Noteon 06-21-2019 Manager Of Community Relations Authentication Interface Message Text Nona Antonio is a 14 y.o. female who is here for evaluation of scars from a dog bite. She suffered a dog bite to the face approximately 4 months ago in February 2019. She is accompanied today by her parents. They report that Nona was at a friends house and she attempted to hug the dog around the abdomen from the back. The dog turned around and bit her. She reports that the dog is typically friendly but was sick at the time and may have been in pain. The bite was to the face mainly the right lower chin and left cheek. She was immediately taken to an OSH ED. The wound was irrigated and the larger bites were approximated using a nylon sutures. She states the chin laceration went through the inside of her mouth. She did not have any postoperative infections. Past Medical History: Diagnosis Date ADHD (attention deficit hyperactivity disorder) Asthma Headache(784.0) Psychiatric problem History reviewed. No pertinent surgical history. Current Outpatient Medications: sertraline (ZOLOFT) 100 MG tablet, Take 1.5 mg by mouth daily, Disp: , Rfl: guanFACINE (INTUNIV) 1 MG tablet, Take 1 mg by mouth., Disp: , Rfl: lisdexamfetamine (VYVANSE) 20 MG capsule, Take 20 mg by mouth daily., Disp: , Rfl: cyproheptadine (PERIACTIN) 4 MG tablet, Take 4 mg by mouth At bedtime. Indications: Decrease in Appetite, Disp: , Rfl: melatonin 3 MG tablet, Take 9 mg by mouth nightly at bedtime., Disp: , Rfl: Allergies Allergen Reactions Bactrim [Sulfamethoxazole-Trimethopr im] Hives Augmentin [Amoxicillin-Pot Clavulanate] Diarrhea Review of Systems: Constitutional: Negative. Negative for fever. HENT: Negative for rhinorrhea. Negative for congestion, sneezing, drooling and ear discharge. Eyes: Negative. Respiratory: Negative for cough and wheezing. Negative for apnea, choking and stridor. Cardiovascular: Negative. Gastrointestinal: Negative. Genitourinary: Negative. Musculoskeletal: Negative for joint swelling and extremity weakness. Skin: Negative. Neurological: Negative. Hematological: Negative. Physical Exam: Nursing note and vitals reviewed. Constitutional: The patient is well-developed and well-nourished. Head: Normocephalic, atraumatic. No cranial deformity or facial anomaly. Nose: No Nasal discharge present. No deformity. Septum and mucosa intact. Mouth/Throat: Mucous membranes are moist. Dentition is normal. Oropharynx is clear. Pharynx is normal. Eyes: Extraocular motions are normal. Pupils are equal, round, and reactive to light. Neck: Normal range of motion. Neck supple. No masses or lymphadenopathy Skin: Skin is warm. Capillary refill takes less than 3 seconds. Turgor is normal. No rash noted. Specific exam: There are three scars from where the dog bit this child on the face. Currently there is some amount of inflammation and all 3 of the lacerations. The longer scar to the left cheek is jagged with some width, (Nona complain of tenderness to the superior portion of this scar). The scar to the chin is inflamed but healing well (Nona complains of numbness). The surrounding skin is intact. There is no evidence of drainage or infection. Impression: Severe dog bite to the face. Incisions healing well except for left cheek scar. Recommendations: We went over scar management techniques which included massage, sunscreen and scar creams. Joanna described to the family that it takes 12-18 months for scars to completely mature. We are not entirely sure if this requires any secondary treatment at this time. We have requested that Nona return in 6-9 months. At the most, she may require a small scar revision of the left cheek scar Marisol Martin CNP 06/21/19 I have personally shared in this visit of Nona Antonio, providing bedside participation in the evaluation and management. I saw and evaluated the patient. I discussed the patient's history, exam, and medical decision making with the Nurse Practitioner (AIR TUCKER). I performed components of the history, physical exam and the medical decision making. I agree with the above documentation and assessment. Nona presents 3 months after a dog bite to the face and is very concerned about the appearance of her scars. My specific findings include 3 separate lacerations of different lengths with some adherence to underlying facial musculature. The most hypertrophic scar with subcutaneous scar present is on the right submental area. My recommendations are for scar management with massage, silicone dressings and sunscreen. I asked him to follow-up in another 6 months. She may require intralesional corticosteroid injections and possible laser resurfacing in the future if this does not improve. I spent a total of 30 minutes with this patient, of which, >15 minutes was spent counseling and/or coordinating care. We discussed a summary of the treatment plan with the patient and family including details on coordination of care. Our discussion included: timing and indications of surgery; possible risks and benefits; non-surgical options; and expected outcomes. Nagi Tucker MD, FACS Chief, Division of Plastic Surgery [facility] 06/21/2019 Normal [facility] Microbiology: Culture, R/O S trep Aon 06-08-2017 CUSTREPA . Invalid Interpretation Code [facility] Work Phone: Office Visit: UC: pharyngiti s, earache, abd painon 06-05-2017 Documentation of current medications (procedure) Done Invalid Interpretation Code [facility] Work Phone: Fall risk assessment No Invalid Interpretation Code [facility] Work Phone: Protein mass conc Done Invalid Interpretation Code [facility] Work Phone: Tobacco smoking status NHIS Never Invalid Interpretation Code [facility] Work Phone: Tobacco smoking status KYIS Never smoker Invalid Interpretation Code [facility] Work Phone: Tobacco use [facility] Never smoker Invalid Interpretation Code [facility] Work Phone: Culture, urine Bacteria identified Cx Nom (U) Positive [facility] Work Phone: Bacteria identified Cx Nom (U) Culture exhibits no growth. [facility] Work Phone: Vital Signs Date Time Vital Sign Value Performing Clinician Facility 10-16-2022 12:34-0500 Body height 157.8 cm Micky Gamino MD Work Phone: [facility] 10-16-2022 12:34-0500 Body temperature 98.01 [degF] Micky Gamino MD Work Phone: [facility] 10-16-2022 12:34-0500 Body weight 61.75 kg Micky Gamino MD Work Phone: [facility] 10-16-2022 12:34-0500 Diastolic blood pressure 66 mm[Hg] Micky Gamino MD Work Phone: [facility] 10-16-2022 12:34-0500 Heart rate 88 /min Micky Gamino MD Work Phone: [facility] 10-16-2022 12:34-0500 Respiratory rate 16 /min Micky Gamino MD Work Phone: [facility] 10-16-2022 12:34-0500 Systolic blood pressure 120 mm[Hg] Micky Gamino MD Work Phone: [facility] 09-20-2022 13:44-0500 Body temperature 98.1 [degF] Dr. Micky Gamino Work Phone: [facility] 09-20-2022 13:44-0500 Diastolic blood pressure 76 mm[Hg] Dr. Micky Gamino Work Phone: [facility] 09-20-2022 13:44-0500 Heart rate 125 /min Dr. Micky Gamino Work Phone: 5(588)744-062581 [place] [address] 09-20-2022 13:44-0500 Respiratory rate 15 /min Dr. Micky Gamino Work Phone: 5(981)565-673981 [place] [address] 09-20-2022 13:44-0500 SaO2% (BldA) [Mass fraction] 98 % Dr. Micky Gamino Work Phone: 5(777)390-218281 [place] [address] 09-20-2022 13:44-0500 Systolic blood pressure 120 mm[Hg] Dr. Micky Gamino Work Phone: 3(987)705-016681 [place] [address] 09-18-2022 17:04-0500 Body height 157.[address] Micky Gamino Work Phone: 9(147)745-912981 [place] [address] 09-18-2022 17:04-0500 Body mass index (BMI) [Percentile] Per age and sex 62.5 % Dr. Micky Gamino Work Phone: 1(115)376-593581 [place] [address] 09-18-2022 17:04-0500 Body mass index (BMI) [Ratio] 22.8 kg/m2 Dr. Micky Gamino Work Phone: 2(122)118-610481 [place] [address] 09-18-2022 17:04-0500 Body temperature 98.2 [degF] Dr. Micky Gamino Work Phone: 4(399)301-400181 [place] [address] 09-18-2022 17:04-0500 Body weight 56.[address] Micky Gamino Work Phone: 7(177)202-428981 [place] [address] 09-18-2022 17:04-0500 Diastolic blood pressure 92 mm[Hg] Dr. Micky Gamino Work Phone: 0(772)888-918181 [place] [address] 09-18-2022 17:04-0500 Heart rate 95 /min Dr. Micky Gamino Work Phone: 3(029)713-792381 [place] [address] 09-18-2022 17:04-0500 Respiratory rate 18 /min Dr. Micky Gamino Work Phone: 5(155)439-094981 [place] [address] 09-18-2022 17:04-0500 SaO2% (BldA) [Mass fraction] 100 % Dr. Micky Gamino Work Phone: 2(805)435-076781 [place] [address] 09-18-2022 17:04-0500 Systolic blood pressure 123 mm[Hg] Dr. Micky Gamino Work Phone: [facility] 08-22-2022 14:21-0500 Body mass index (BMI) [Percentile] Per age and sex 77.4 % Dr. Micky Gamino Work Phone: [facility] 08-22-2022 14:21-0500 Body mass index (BMI) [Ratio] 24.7 kg/m2 Dr. Micky Gamino Work Phone: [facility] 08-22-2022 14:21-0500 Body weight 61.[address] Micky Gamino Work Phone: 5(748)512-242177 [place] [address] 08-22-2022 14:21-0500 Diastolic blood pressure 74 mm[Hg] Dr. Micky Gamino Work Phone: [facility] 08-22-2022 14:21-0500 Systolic blood pressure 108 mm[Hg] Dr. Micky Gamino Work Phone: [facility] 07-09-2022 09:58-0500 Body temperature 97.59 [degF] Micky Gamino MD Work Phone: [facility] 07-09-2022 09:58-0500 Body weight 59.42 kg Micky Gamino MD Work Phone: [facility] 07-09-2022 09:58-0500 Diastolic blood pressure 60 mm[Hg] Micky Gamino MD Work Phone: [facility] 07-09-2022 09:58-0500 Heart rate 80 /min Micky Gamino MD Work Phone: [facility] 07-09-2022 09:58-0500 Respiratory rate 16 /min Micky Gamino MD Work Phone: [facility] 07-09-2022 09:58-0500 Systolic blood pressure 112 mm[Hg] Micky Gamino MD Work Phone: [facility] 07-05-2022 13:00-0500 Body temperature 100.2 [degF] Dr. Micky Gamino Work Phone: 4(313)964-844177 [place] [address] 07-05-2022 13:00-0500 Diastolic blood pressure 60 mm[Hg] Dr. Micky Gamino Work Phone: 4(486)242-012081 [place] [address] 07-05-2022 13:00-0500 Heart rate 96 /min Dr. Micky Gamino Work Phone: 1(502)167-709581 [place] [address] 07-05-2022 13:00-0500 Respiratory rate 16 /min Dr. Micky Gamino Work Phone: 2(954)939-290481 [place] [address] 07-05-2022 13:00-0500 SaO2% (BldA) [Mass fraction] 97 % Dr. Micky Gamino Work Phone: 6(324)600-581781 [place] [address] 07-05-2022 13:00-0500 Systolic blood pressure 88 mm[Hg] Dr. Micky Gamino Work Phone: 2(022)454-156681 [place] [address] 06-07-2022 12:02-0400 Body height 157.[address] Micky Gamino Work Phone: 7(261)065-748481 [place] [address] Work Phone: 06-07-2022 12:01-0400 Body mass index (BMI) [Percentile] Per age and sex 66.8 % Dr. Micky Gamino Work Phone: 6(841)712-682381 [place] [address] 06-07-2022 12:01-0400 Body mass index (BMI) [Ratio] 23.2 kg/m2 Dr. Micky Gamino Work Phone: 5(415)491-353481 [place] [address] 06-07-2022 12:01-0400 Body weight 57.[address] Micky Gamino Work Phone: 1(510)198-648981 [place] [address] 06-07-2022 12:01-0400 Diastolic blood pressure 62 mm[Hg] Dr. Micky Gamino Work Phone: 2(462)030-681481 [place] [address] 06-07-2022 12:01-0400 Systolic blood pressure 90 mm[Hg] Dr. Micky Gamino Work Phone: 2(768)851-313681 [place] [address] 05-31-2022 09:42-0400 Body mass index (BMI) [Percentile] Per age and sex 60.1 % Dr. Micky Gamino Work Phone: [facility] 05-31-2022 09:42-0400 Body mass index (BMI) [Ratio] 22.5 kg/m2 Dr. Micky Gamino Work Phone: 6(262)030-307277 [place] [address] 05-31-2022 09:42-0400 Body weight 55.[address] Micky Gamino Work Phone: 0(714)056-647777 [place] [address] 05-31-2022 09:42-0400 Diastolic blood pressure 64 mm[Hg] Dr. Micky Gamino Work Phone: 1(086)635-553681 [place] [address] 05-31-2022 09:42-0400 Systolic blood pressure 98 mm[Hg] Dr. Micky Gamino Work Phone: 6(693)283-587681 [place] [address] 04-30-2022 10:36-0400 Body height 157.[address] Micky Gamino Work Phone: [facility] Work Phone: 04-30-2022 10:36-0400 Body mass index (BMI) [Percentile] Per age and sex 58.2 % Dr. Micky Gamino Work Phone: [facility] Work Phone: 04-30-2022 10:36-0400 Body mass index (BMI) [Ratio] 22.3 kg/m2 Dr. Micky Gamino Work Phone: [facility] Work Phone: 04-30-2022 10:36-0400 Body temperature 97 [degF] Dr. Micky Gamino Work Phone: [facility] Work Phone: 04-30-2022 10:36-0400 Body weight 55.[address] Micky Gamino Work Phone: [facility] Work Phone: 04-30-2022 10:36-0400 Diastolic blood pressure 102 mm[Hg] Dr. Micky Gamino Work Phone: [facility] Work Phone: 04-30-2022 10:36-0400 Heart rate 122 /min Dr. Micky Gamino Work Phone: [facility] Work Phone: 04-30-2022 10:36-0400 Respiratory rate 18 /min Dr. Micky Gamino Work Phone: [facility] Work Phone: 04-30-2022 10:36-0400 SaO2% (BldA) [Mass fraction] 97 % Dr. Micky Gamino Work Phone: [facility] Work Phone: 04-30-2022 10:36-0400 Systolic blood pressure 140 mm[Hg] Dr. Micky Gamino Work Phone: [facility] Work Phone: 03-22-2022 16:07-0400 Body temperature 98 [degF] Dr. Micky Gamino Work Phone: [facility] Work Phone: 03-22-2022 16:07-0400 Diastolic blood pressure 70 mm[Hg] Dr. Micky Gamino Work Phone: [facility] Work Phone: 03-22-2022 16:07-0400 Heart rate 86 /min Dr. Micky Gamino Work Phone: [facility] Work Phone: 03-22-2022 16:07-0400 Respiratory rate 16 /min Dr. Micky Gamino Work Phone: [facility] Work Phone: 03-22-2022 16:07-0400 SaO2% (BldA) [Mass fraction] 99 % Dr. Micky Gamino Work Phone: [facility] Work Phone: 03-22-2022 16:07-0400 Systolic blood pressure 100 mm[Hg] Dr. Micky Gamino Work Phone: [facility] Work Phone: 12-13-2021 09:16-0400 Body temperature 98.7 [degF] Dr. Micky Gamino Work Phone: [facility] Work Phone: 12-13-2021 09:16-0400 Diastolic blood pressure 58 mm[Hg] Dr. Micky Gamino Work Phone: [facility] Work Phone: 12-13-2021 09:16-0400 Heart rate 91 /min Dr. Micky Gamino Work Phone: [facility] Work Phone: 12-13-2021 09:16-0400 Respiratory rate 16 /min Dr. Micky Gamino Work Phone: [facility] Work Phone: 12-13-2021 09:16-0400 SaO2% (BldA) [Mass fraction] 98 % Dr. Micky Gamino Work Phone: [facility] Work Phone: 12-13-2021 09:16-0400 Systolic blood pressure 92 mm[Hg] Dr. Micky Gamino Work Phone: [facility] Work Phone: 10-16-2021 05:49-0500 Body height 157.[address] Micky Gamino Work Phone: [facility] Work Phone: 10-16-2021 05:49-0500 Body mass index (BMI) [Percentile] Per age and sex 50.4 % Dr. Micky Gamino Work Phone: [facility] Work Phone: 10-16-2021 05:49-0500 Body mass index (BMI) [Ratio] 21.5 kg/m2 Dr. Micky Gamino Work Phone: [facility] Work Phone: 10-16-2021 05:49-0500 Body temperature 96.5 [degF] Dr. Micky Gamino Work Phone: [facility] Work Phone: 10-16-2021 05:49-0500 Body weight 53.[address] Micky Gamino Work Phone: [facility] Work Phone: 10-16-2021 05:49-0500 Diastolic blood pressure 87 mm[Hg] Dr. Micky Gamino Work Phone: [facility] Work Phone: 10-16-2021 05:49-0500 Heart rate 94 /min Dr. Micky Gamino Work Phone: [facility] Work Phone: 10-16-2021 05:49-0500 Respiratory rate 18 /min Dr. Micky Gamino Work Phone: [facility] Work Phone: 10-16-2021 05:49-0500 SaO2% (BldA) [Mass fraction] 98 % Dr. Micky Gamino Work Phone: [facility] Work Phone: 10-16-2021 05:49-0500 Systolic blood pressure 110 mm[Hg] Dr. Micky Gamino Work Phone: [facility] Work Phone: 06-05-2017 15:07-0400 BMI (Body Mass Index) 17.92 kg/m2 Santi CARRASCO [facility] Work Phone: 06-05-2017 15:07-0400 Body Temperature 98.7 [degF] Santi CARRASCO [facility] Work Phone: 06-05-2017 15:07-0400 BP Diastolic 64 mm[Hg] Santi CARRASCO [facility] Work Phone: 06-05-2017 15:07-0400 BP Systolic 112 mm[Hg] Santi CARRASCO [facility] Work Phone: 06-05-2017 15:07-0400 Height 157.48 cm Santi Ambrosio CARRASCO [facility] Work Phone: 06-05-2017 15:07-0400 Pulse (Heart Rate) 81 /min Santi Eastcorrie CARRASCO [facility] Work Phone: 06-05-2017 15:07-0400 Respiratory Rate 16 /min Santi Ambrosio CARRASCO [facility] Work Phone: 06-05-2017 15:07-0400 Weight 44.45 kg Santi Eastcorrie CARRASCO [facility] Work Phone: 10-18-2016 15:48-0500 Body Temperature 100.2 [degF] Santi Ambrosio CARRASCO [facility] Work Phone: 10-18-2016 15:48-0500 Height 154.94 cm Santi CARRASCO [facility] Work Phone: 10-18-2016 15:48-0500 Weight 43.36 kg Santi Eastcorrie CARRASCO [facility] Work Phone: 09-23-2016 17:43-0500 BSA (Body Surface Area) 1.35 m2 Santi Ambrosio CARRASCO [facility] Work Phone: Encounters Encounter Date Encounter Type Care Provider Facility Start: 03-31-2025 End: 03-31-2025 ambulatory Gini Moreler VS Facility:[facility] Start: 03-28-2025 End: 03-28-2025 ambulatory Lo Goode Facility:[facility] Start: 03-07-2025 ambulatory Gini Rodríguez [facility] Faci lity:[facility] Start: 02-02-2025 End: 02-02-2025 ambulatory Lo Russel Facility:[facility] Start: 02-01-2025 End: 02-01-2025 ambulatory Gini Marcos [facility] Facility:[facility] Start: 01-06-2025 End: 01-06-2025 ambulatory Santi Jensen Facility:[facility] Start: 12-30-2024 End: 12-30-2024 ambulatory Gini Rodríguez [facility] Facility:[facility] Start: 11-04-2024 End: 11-04-2024 ambulatory Gini Rodríguez VSC Facility:[facility] Start: 10-01-2024 Encounter for other preprocedural examination Colt Jackson [facility] Start: 09-30-2024 End: 09-30-2024 ambulatory Gini Rodríguez VSC Facility:[facility] Start: 09-16-2024 End: 09-16-2024 ambulatory Gini Rodríguez VSC Facility:[facility] Start: 09-07-2024 End: 09-07-2024 ambulatory Gini Rodríguez VSC Facility:[facility] Start: 09-06-2024 End: 09-06-2024 Emergency department patient visit MICKY GAMINO Facility:[facility] Start: 08-23-2024 End: 08-23-2024 ambulatory Lo Russel Facility:[facility] Start: 08-17-2024 End: 08-17-2024 ambulatory Lo Russel Facility:[facility] Start: 07-15-2024 ambulatory Lo Pallavi Bennett cility:[facility] Start: 07-15-2024 End: 07-15-2024 ambulatory Gini Rodríguez VSC Facility:[facility] Start: 07-07-2024 End: 07-07-2024 Emergency department patient visit Monserratsofia Baeza Facility:[facility] Start: 06-25-2024 ambulatory Ileanafern Hess Facility :[facility] Start: 05-02-2024 End: 05-02-2024 ambulatory Kevin Ang NP Facility:[facility] Start: 04-08-2024 End: 04-08-2024 ambulatory Santi Jensen Facility:[facility] Start: 04-06-2024 End: 04-06-2024 ambulatory Samantha Gutierrez Facility:[facility] Start: 11-08-2022 End: 11-08-[address] Micky Gamino Work Phone: [facility] Work Phone: Start: 11-08-2022 End: 11-08-[address] Micky Gamino Work Phone: [facility]-Pulmonary Services/Neurology Start: 10-16-2022 End: 10-17-2022 ambulatory MICKY GAMINO Facility:[facility] Start: 10-16-2022 End: 10-17-2022 ambulatory MICKY GAMINO Facility:[facility] Start: 10-16-2022 End: 10-16-2022 Patient encounter procedure Micky Gamino MD Work Phone: [facility] [place] Comment on above: Tachycardia (Primary Dx); Palpable lymph node Start: 09-20-2022 End: 09-20-[address] Micky Gamino Work Phone: [facility] Start: 09-18-2022 End: 09-18-2022 Emergency department patient [facility] Start: 08-22-2022 End: 08-22-[address] Micky Gamino Work Phone: [facility] Start: 07-12-2022 ambulatory Micky Gamino MD Work Phone: [facility] [place] Comment on above: Allergic Reaction Start: 07-09-2022 Telephone encounter Micky aguilar MD Work Phone: [facility] [place] Comment on above: Results Start: 07-09-2022 End: 07-09-2022 ambulatory MICKY GAMINO Facility:[facility] Start: 07-09-2022 End: 07-09-2022 Subsequent hospital visit by physician [facility] [place] Work Phone: [facility]iology Comment on above: Acute cough [R05.1] Start: 07-09-2022 End: 07-09-2022 Patient encounter procedure Micky Gamino MD Work Phone: [facility] [place] Comment on above: Acute cough (Primary Dx) Start: 07-05-2022 End: 07-05-[address] Micky Gamino Work Phone: [facility] Work Phone: Start: 07-05-2022 End: 07-05-[address] Micky Gamino Work Phone: [facility]-Laboratory, Specimen Start: 07-05-2022 End: 07-05-[address] Micky Gamino Work Phone: [facility] Start: 06-07-2022 End: 06-07-[address] Micky Gamino Work Phone: [facility] Start: 05-31-2022 End: 05-31-[address] Micky Gamino Work Phone: [facility] Start: 04-30-2022 End: 04-30-2022 Emergency department patient visit [facility] Start: 03-22-2022 End: 03-22-[address] Micky Gamino Work Phone: [facility] Start: 12-13-2021 End: 12-13-[address] Micky Gamino Work Phone: [facility] Start: 11-07-2021 End: 11-07-[address] Micky Gamino Work Phone: [facility]-Physical Therapy Start: 10-16-2021 Non-patient / Non-visit Dr. Howard Work Phone: [facility] Start: 10-16-2021 End: 10-16-2021 Emergency department patient visit Dr. Micky Gamino Work Phone: [facility]-Emergency Department Start: 10-04-2021 End: 10-04-[address] [facility] Date Procedure Procedure Detail Performing Clinician Start: 10-16-2022 Ecg routine ecg w/le ast 12 lds i&r only [facility] Provider Start: 07-09-2022 Radiologic exam ches t 2 views Micky Gamino MD Work Phone: Start: 04-30-2022 CT of abdomen and pe lvis without contrast Dr. Micky Gamino Work Phone: Start: 10-16-[address] Sarika Gamino Work Phone: Start: 10-16-2021 Computed tomography of abdomen and pelvis with intravenous contrast Dr. Micky Gamino Work Phone: Start: 06-05-2017 End: 06-05-2017 Iaadiadoo streptococcus group a Santi CARRASCO Work Phone: Urine culture Dr. Micky Cummings dt Work Phone: Urine culture Dr. Micky Cummings dt Work Phone: Plan of Treatment Date Care Activity Detail Author Start: 04-08-2025 ambulatory Ambulatory Facility:[facility] Start: 03-02-2025 Urine microalbumin profile [facility] Start: 04-11-2024 Covid-19 Vaccine ( season) Covid-19 Vaccine ( season) [facility] Start: 04-11-2024 Influenza vaccination Influenza Vacc ine (#1) [facility] Start: 02-01-2024 Screening for malign ant neoplasm of cervix Cervical Cancer Screening [facility] Start: 01-14-2024 GC (Gonorrhea) Scree balbina (18-24) GC (Gonorrhea) Screening (18) [facility] Start: 01-14-2024 Screening for Chlamy vikas trachomatis Chlamydia Screening () [facility] Start: 10-16-2022 End: 12-16-2022 Ferritin [Mass/volume] in Serum or Plasma [facility] Work Phone: Comment on above: Expected: 10/16/2022 , Expires: 12/16/2022 Start: 10-16-2022 End: 12-16-2022 Thyrotropin [Units/volume] in Serum or Plasma [facility] Work Phone: Comment on above: Expected: 10/16/2022 , Expires: 12/16/2022 Start: 10-16-2022 End: 12-16-2022 Thyroxine (T4) free [Mass/volume] in Serum or Plasma [facility] Work Phone: Comment on above: Expected: 10/16/2022 , Expires: 12/16/2022 Start: 08-11-2022 DEPRESSION ASSESSMENT DEPRESSION ASS [facility] Start: 04-30-2022 [facility] Work Phone: Start: 04-11-2022 Influenza vaccination INFLUENZA (#1) [facility] Start: 08-11-2021 [facility] Start: 05-06-2021 COVID-19 VACCINE (3 - Booster for Pfizer series) COVID-19 VACCINE (3 - Booster for Pfizer series) [facility] Start: 2021 CHLAMYDIA SCREENING (18-24) CHLAMYDIA SCREENING (18-24) [facility] Start: 2021 Depression Screening Depression Scre ening [facility] Start: 2021 GC (GONORRHEA) SCREE BALBINA (18-24) GC (GONORRHEA) SCREENING (18-24) [facility] Start: 2021 HEPATITIS C SCREENING HEPATITIS C [facility] Start: 2021 Hepatitis C screening Hepatitis C [facility] Start: 2021 HIV SCREENING HIV SCREENING [facility] Start: 2021 HIV screening HIV Screening [facility] Start: 2019 Meningococcal B Vacc ine: Consider Based On Risk (1 of 2 - Patient Seeks Protection) Meningococcal B Vaccine: Consider Based On Risk (1 of 2 - Patient Seeks Protection) [facility] Start: 06-05-2017 End: 06-05-2017 Appointment Appointment [facility] Work Phone: Start: 06-05-2017 End: 06-05-2017 Streptococcus.beta-hemol ytic [Presence] in Throat by Organism specific culture [facility] Work Phone: Start: 2017 PEDS TO ADULT TRANSI TION ANNUAL ASSESSMENT PEDS TO ADULT TRANSITION ANNUAL ASSESSMENT [facility] Start: 2013 MENINGOCOCCAL B: Consider based on risk (1 of 2 - Risk Bexsero 2-dose series) MENINGOCOCCAL B: Consider based on risk (1 of 2 - Risk Bexsero 2-dose series) [facility] End: 10-17-2023 ECG COMPLETE ECG COMPLETE ECG Routine Tachycardia 1 Occurrences starting 10/16/2022 until 10/17/2023 [facility] Work Phone: Comment on above: 1 Occurrences starti ng 10/16/2022 until 10/17/2023 Patient Education [facility] Now in Work Phone: Patient referral [facility] Work Phone: Immunizations Immunization Date Immunization Notes Care Provider Fa [facility] 07-23-2022 influenza virus vacc ine, unspecified formulation [facility] [place] Work Phone: [facility] 04-05-2021 hepatitis B vaccine, pediatric or pediatric/adolescent dosage Micky Gamino MD Work Phone: [facility] 04-03-2021 tuberculin skin test ; purified protein derivative solution, intradermal [facility] [place] Work Phone: [facility] 03-27-2021 tuberculin skin test ; purified protein derivative solution, intradermal [facility] [place] Work Phone: [facility] 03-11-2021 COVID-19 original vaccine, age 12+ yr, monovalent (PFIZER-BIONTECH - PURPLE TOP) Micky Gamino MD Work Phone: [facility] 02-18-2021 COVID-19 original vaccine, age 12+ yr, monovalent (PFIZER-BIONTECH - PURPLE TOP) Micky Gamino MD Work Phone: [facility] 07-21-2020 Human Papillomavirus 9-valent vaccine Micky Gamino MD Work Phone: [facility] 05-04-2020 influenza, injectabl e, quadrivalent, contains preservative Micky Gamino MD Work Phone: [facility] 05-04-2020 meningococcal polysaccharide (groups A, C, Y and W-135) diphtheria toxoid conjugate vaccine (MCV4P) Micky Gamino MD Work Phone: [facility] 08-24-2019 influenza, injectabl e, quadrivalent, preservative free Micky Gamino MD Work Phone: [facility] 08-05-2018 influenza, injectabl e, quadrivalent, contains preservative Micky Gamino MD Work Phone: [facility] 09-08-2017 influenza, seasonal, injectable Dr. Micky Gamino Work Phone: [facility] 09-08-2017 influenza, seasonal, injectable, preservative free Micky Gamino MD Work Phone: [facility] 11-23-2015 Human Papillomavirus 9-valent vaccine Micky Gamino MD Work Phone: [facility] Work Phone: 09-19-2015 Human Papillomavirus 9-valent vaccine Micky Gamino MD Work Phone: [facility] Work Phone: 07-28-2015 influenza, injectabl e, quadrivalent, contains preservative Micky Gamino MD Work Phone: [facility] 03-02-2015 meningococcal polysaccharide (groups A, C, Y and W-135) diphtheria toxoid conjugate vaccine (MCV4P) Micky Gamino MD Work Phone: [facility] Work Phone: 03-02-2015 tetanus toxoid, redu juanis diphtheria toxoid, and acellular pertussis vaccine, adsorbed Micky Gamino MD Work Phone: [facility] Work Phone: 05-13-2014 influenza, injectabl e, quadrivalent, preservative free Micky Gamino MD Work Phone: [facility] 07-28-2013 influenza virus vacc ine, unspecified formulation Micky Gamino MD Work Phone: [facility] Work Phone: 05-14-2012 influenza virus vacc ine, unspecified formulation Micky Gamino MD Work Phone: [facility] 03-24-2012 varicella virus vaccine Micky Gamino MD Work Phone: [facility] Work Phone: 06-10-2011 influenza virus vacc ine, unspecified formulation Micky Gamino MD Work Phone: [facility] 06-20-2009 novel influenza-H1N1 -09, all formulations Micky Gamino MD Work Phone: [facility] Work Phone: 06-20-2009 novel influenza-H1N1 -09, preservative-free, injectable Micky Gamino MD Work Phone: [facility] 04-01-2008 diphtheria, tetanus toxoids and acellular pertussis vaccine Micky Gamino MD Work Phone: [facility] 04-01-2008 measles, mumps and rubella virus vaccine Micky Gamino MD Work Phone: [facility] 04-01-2008 poliovirus vaccine, inactivated Micky Gamino MD Work Phone: [facility] 06-26-2007 influenza virus vacc ine, unspecified formulation Micky Gamino MD Work Phone: [facility] Work Phone: 07-08-2005 influenza virus vacc ine, unspecified formulation Micky Gamino MD Work Phone: [facility] Work Phone: 08-22-2004 diphtheria, tetanus toxoids and acellular pertussis vaccine Micky Gamino MD Work Phone: [facility] 08-22-2004 pneumococcal conjuga te vaccine, 7 valent Micky Gamino MD Work Phone: [facility] 08-22-2004 poliovirus vaccine, inactivated Micky Gaimno MD Work Phone: [facility] 05-24-2004 haemophilus influenz ae type b vaccine, HbOC conjugate Micky Gamino MD Work Phone: [facility] 05-24-2004 influenza virus vacc ine, unspecified formulation Micky Gamino MD Work Phone: [facility] 05-24-2004 measles, mumps and rubella virus vaccine Micky Gamino MD Work Phone: [facility] 02-24-2004 varicella virus vaccine Micky Gamino MD Work Phone: [facility] 2003 hepatitis B vaccine, pediatric or pediatric/adolescent dosage Micky Gamino MD Work Phone: [facility] 2003 diphtheria, tetanus toxoids and acellular pertussis vaccine Micky Gamino MD Work Phone: [facility] 2003 haemophilus influenz ae type b vaccine, HbOC conjugate Micky Gamino MD Work Phone: [facility] 2003 pneumococcal conjuga te vaccine, 7 valent Micky Gamino MD Work Phone: [facility] 2003 influenza virus vacc ine, unspecified formulation Micky Gamino MD Work Phone: [facility] 2003 diphtheria, tetanus toxoids and acellular pertussis vaccine Micky Gamino MD Work Phone: [facility] 2003 haemophilus influenz ae type b vaccine, HbOC conjugate Micky Gamino MD Work Phone: [facility] 2003 pneumococcal conjuga te vaccine, 7 valent Micky Gamino MD Work Phone: [facility] 2003 poliovirus vaccine, inactivated Micky Gamino MD Work Phone: [facility] 2003 diphtheria, tetanus toxoids and acellular pertussis vaccine Micky Gamino MD Work Phone: [facility] 2003 haemophilus influenz ae type b vaccine, HbOC conjugate Micky Gamino MD Work Phone: [facility] 2003 pneumococcal conjuga te vaccine, 7 valent Micky Gamino MD Work Phone: [facility] 2003 poliovirus vaccine, inactivated Micky Gamino MD Work Phone: [facility] 2003 hepatitis B vaccine, pediatric or pediatric/adolescent dosage Micky Gamino MD Work Phone: [facility] 2003 hepatitis B vaccine, pediatric or pediatric/adolescent dosage Micky Gamino MD Work Phone: [facility] Payers Date Payer Category Payer Self-pay [id number] [id number] 2019 Unknown [id number] 2019 Unknown [id number] Unknown [id number] 2.16.8 [id number] Unknown [id number] 2.16.8 [id number] Unknown [id number] 2.16.8 [id number] Unknown [id number] 2.16.8 [id number] Unknown [id number] 2.16.8 [id number] Unknown [id number] 2.16.8 [id number] Unknown [id number] 2.16.8 [id number] Unknown [id number] 2.16.8 [id number] Unknown [id number] 2.16.8 [id number] Unknown [id number] 2.16.8 [id number] Unknown [id number] 2.16.8 [id number] Unknown [id number] 2.16.8 [id number] Unknown [id number] 2.16.8 [id number] Unknown [id number] 2.16.8 [id number] Unknown [id number] 2.16.8 [id number] Unknown [id number] 2.16.8 [id number] Unknown [id number] 2.16.8 [id number] Unknown [id number] [id number] Unknown [id number] 2.16.8 [id number] Unknown [id number] 2.16.8 [id number] Unknown [id number] Unknown [id number] Social History Date Type Detail Facility [facility] Work Phone: Start: 12-13-2021 End: 09-20-2022 Tobacco smoking status NHIS Unknown if ever smoked [facility] Start: 08-17-2019 Non-smoker [facility] Start: 2003 Sex Assigned At Female [facility] Start: 02-28-2011 [facility] Work Phone: Start: 02-28-2011 Tobacco use and exposure Smokeless tobacco non-user [facility] Work Phone: Start: 07-09-2022 End: 10-16-2022 Alcohol intake Current non-drinker of alcohol (finding) [facility] Start: 07-16-2020 End: 07-09-2022 History of Social function [facility] Start: 07-16-2020 End: 07-09-2022 Tobacco use panel [facility] National Score (1-100), lower number is lower risk Not on file [facility] Start: 09-07-2020 Gender identity Identifies as female gender (finding) [facility] Start: 09-07-2020 Sexual orientation Heterosexual (deann acosta) [facility] NEGATED: Highlighted row [facility] Goals Date Patient Goal Desired Activity /State Clinical Notes 02-27-2016 to 09-16-2024 Micky Gamino MD - 10/16/2022 12:39 PM Melinda Gamino MD - 10/16/2022 12:38 PM ESTTelephone Encounter - Enmanuel Mcmahon RN - 07/12/2022 4:01 PM Melinda Gamino MD - 07/09/2022 10:17 AM EST Note Date & Type Note Facility 09-16-2024 Note [facility] Medical Records Department [address] [place] [id number] History Physical Exam 09/16/24 1102 MR#: [id number] Acct: [id number] Name: NONA ANTONIO Rep #: [id number] : 2005 19 From: Colt Jackson DO PCP: Gini Rodríguez DO Status:[facility] [place] Location: [place] [address] HPI - General General Date of Admission: 09/16/24 Date of Service: 09/16/24 Chief Complaint: abdominal pain and diarrhea HPI Narrative NONA ANTONIO, is a 19 F who presents for endoscopic evaluation of abdominal pain and diarrhea - seen in the office with mom today - pain was sharp and stabbing, sudden onset, generalized, but started in lower abdomen- changed to dull stabbing pain in ED - constant pain - she was having diarrhea prior to pain - this is unusual for her - she took a magnesium liquid liquid yesterday - took all night to work - finds that she has to take something to have a BM - denies any family h/o IBD - reports a family h/o IBS - she is seen in the office today with her mom - reports she wakes up every day and something else wrong - she has quite a bit of anxiety - c/o chronic fatigue - reports everyone thinks it is all in her head - feels like providers do not listen to her - reports she has been suffering with pain since she was a child - c/o pain every where, joints ache constantly - has never seen rheumatology - reports she breaks out in hives after every meal and they itch terribly - food allergy panel - negative but reports she knows she is allergic to pineapple - she is not taking Senna - ED prescribed Ondansetron, dicyclomine, miralax, senna - she is not taking miralax or senna - rpeorts they do not work - carafate TID and pantoprazole BID - reports reflux is an issue - reports she is unable to belch - has a fear of vomiting - has been on PPI BID for a while - EGD 5-6 years ago - normal - BM fluctuate - longest she has gone up to 2 weeks without a BM - bowels can change with dietary changes - denies any bleeding - skin prick as a child negative per patient - hives itching all over after eating - weight is fluctuating - currently in a gaining spiral B: coffee with cream L: yogurt bowl, chick-marlon-a D: rice, protein, vegetable - very little water intake - very little fiber intake [facility] Medical History Wears glasses ADHD Depression Anxiety Migraine headache Gastric reflux Non-smoker Asthma History of Holter monitoring Hypertension Sprain of left foot Left ankle sprain ADHD Generalized anxiety disorder Depression BPPV (benign paroxysmal positional vertigo) Angioedema Earache, left Contraceptive management Constipation Sinusitis, acute, maxillary Acute otitis media, right Abdominal pain URI (upper respiratory infection) Encounter for screening for COVID-19 GERD (gastroesophageal reflux disease) Anxiety Asthma Environmental allergies Home Medications ???Medication ???Instructions ???Recorded ???Last Taken ???Type clonazepam 0.5 mg tablet 0.5 mg PO DAILY PRN anxiety 09/15/24 History propranolol 20 mg tablet 20 mg PO BID 11/11/23 09/15/24 His tory diphenhydramine HCl 25 mg capsule 25 mg PO TID PRN itching 03/25/24 Unknown History (Benadryl) drospirenone 3 mg-ethinyl 1 tab PO QDAY #84 tabs 06/07/24 Un known Rx estradiol 0.02 mg tablet (Jaimie (28)) ondansetron 4 mg disintegrating 4 mg PO Q8H PRN PRN Nausea #15 tab s 07/07/24 Unknown Rx tablet linaclotide 145 mcg capsule 145 mcg PO .COMPLEX #90 caps 07/15 Unknown Rx (Linzess) dextroamphetamine-amphetamine 5 mg 5 mg PO BID 30 days #60 tabs 09/15/24 Rx tablet (Adderall) escitalopram oxalate 20 mg tablet 20 mg PO DAILY 30 days #30 tabs 0 09/07/24 Unknown Rx Allergy/AdvReac Type Severity Reaction Status Date / Time cyclobenzaprine (From Allergy Hives Verified 09/16/24 10:26 Flexeril) pineapple Allergy Hives Verified 09/16/24 10:26 Sulfa (Sulfonamide Allergy Hives Verified 09/16/24 10:26 Antibiotics) sulfamethoxazole (From Allergy Hives Verified 09/16/24 10:26 Bactrim) trimethoprim (From Bactrim) Allergy Hives Verified 09/16/24 10:26 amoxicillin (From Augmentin) AdvReac Diarrhea Verified 09/16/24 10:26 clavulanic acid (From AdvReac Diarrhea Verified 09/16/24 10:26 Augmentin) Family History Father Afib Other Breast cancer Hypertension Thyroid disorder Surgical History History of esophagogastroduodenoscopy (EGD) Social History Smoking Status: Never smoker alcohol intake: current alcohol intake frequency: a few ti (more content not included)... [facility] 09-06-2024 Note SARS-COV-2 (AGENT OF COVID-19) RNA: Not detected INFLUENZA A RNA: Not detected INFLUENZA B RNA: Not detected RESPIRATORY SYNCYTIAL VIRUS (RSV) RNA: Not detected [facility] Comment on above: Performed By: #### 9 [id number] #### [facility] [place] [id number] [address] [place] [id number] [place] 10-16-2022 Note HNO ID: [id number] Author: Micky Gamino MD Service: ? Author Type: Physician Type: Progress Notes Filed: 10/16/2022 5:37 PM Note Text: [place] 10-16-2022 Note HNO ID: [id number] Author: Micky Gamino MD Service: ? Author Type: Physician Type: Progress Notes Filed: 10/16/2022 5:37 PM Note Text: cc lump behind right ear and increased heart rate (for years Sees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 using it in the provision of clinical care. This summary normalizes information from multiple sources, and as a consequence, information in this document may materially change the coding, format and clinical context of patient data. In addition, data may be omitted in some cases. CLINICAL DECISIONS SHOULD BE BASED ON THE PRIMARY CLINICAL RECORDS. [facility] [employer] [facility]. provides no warranty or guarantee of the accuracy or completeness of information in this document.
[2025-04-08 06:11] LABS: Internal QC Validated? YES +Cl - CLEAR BKGD; Pregnancy, Urine Negative Negative
[2025-04-08] MEDS: Lactated Ringers 1,000 ML 15 ML IV (06:11)
[2025-04-08 06:12] LABS: Record Kit Lot#,Urine Preg 0000962302
--- NOTE | 2025-04-08 06:29 | PCM.PRE.AN2 ---
ASA Classification* ASA Classification ASA Classification: 2 Assessment & Plan Anesthesia* Anesthesia Assessment Anesthesia Assessment: Discussed sedation and/or anesthesia options, risks, benefits, and alternatives with patient/parents/legal guardian/POA. Questions invited. The patient/parents/legal guardian/POA seems to understand and agrees to proceed with anesthesia plan. Reviewed the physical assessment, medical history, allergy history and patient home medications list prior to surgery/procedure/anesthetic and documented any changes. Performed airway and anesthesia risk assessments. Anesthesia Type Anesthesia Type: MAC Anesthesia Focused Assessment* Temperature: 97.5 F Pulse Rate: 71 Blood Pressure: 110/74 Respiratory Rate: 18 Pulse Ox: 100 Airway Assessment Mouth opens: >3 cm Mallampati Score: II Labs Anesthesia Preop lab: CBC WBC 8.8 K/mm3 (4.4-11.0) 02/01/25 08:52 02/01/25 RBC 4.48 M/mm3 (4.2-5.4) 02/01/25 08:52 02/01/25 Hgb 12.7 g/dL (12.0-15.0) 02/01/25 08:52 02/01/25 Hct 36.8 % (37-47) L 02/01/25 08:52 02/01/25 Plt Count 372 K/mm3 (150-450) 02/01/25 08:52 02/01/25 CHEMISTRY Potassium 3.9 mmol/L (3.3-5.1) 02/01/25 08:52 02/01/25 Sodium 137 mmol/L (133-145) 02/01/25 08:52 02/01/25 Magnesium 1.9 mg/dL (1.5-2.2) 02/01/25 08:52 02/01/25 BUN 13 mg/dL (4-19) 02/01/25 08:52 02/01/25 Creatinine 0.60 mg/dL (0.70-1.20) L 02/01/25 08:52 02/01/25 Glucose 92 mg/dL (70-99) 02/01/25 08:52 02/01/25 TSH 3.580 uIU/mL (0.300-4.200) 02/01/25 08:52 02/01/25 COAG Urine Test Negative Negative 04/08/25 05:50 04/08/25 Tst Clinic Negative 03/25/24 14:32 03/25/24 Pre-Assessment Diagnosis/Proposed Procedure Planned Operative Procedure(s): egd Anesthesia History 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 When Was Last Pacemaker Check QUESTION #4 FULL TEXT: You/Your Family Experience fever (hyperthermia) with Anesthesia Last Oral Intake Last Oral intake: Last Oral Intake NPO since 18:30 04/08/25 06:02 Meds taken in AM with sips of No 04/08/25 06:02 water? Meds patient instructed to take am of surgery PONV PONV - hedge fund principal: PONV - hedge fund principal Female Yes 04/07/25 12:37 HX of Motion Sickness No 04/07/25 12:37 HX of N/V After Surgery No 04/07/25 12:37 Non-Smoker Yes 04/07/25 12:37 Duration of Surgery greater No 04/07/25 12:37 than 60 minutes Number of Risk Factors 2 04/07/25 12:37 PONV Score Moderate Risk 04/07/25 12:37 Height & Weight Height & Weight: Anesthesia: Height & Weight Height 5 ft 2 in 04/08/25 06:02 Weight: 59.602 kg 04/08/25 06:02 Body Mass Index (BMI) 24.0 04/08/25 06:02 Respiratory Assessment Respiratory Assessment - hedge fund principal: Respiratory Tract Infection Hx - hedge fund principal Hx Respiratory Tract Infection No 04/07/25 12:37 STOP Sleep Apnea STOP Sleep Apnea - hedge fund principal: STOP Sleep Apnea - hedge fund principal Hx Hypertension No 04/07/25 12:37 Hx Sleep Apnea No 04/07/25 12:37 CPAP BIPAP Do you snore loudly (louder No 04/07/25 12:37 than talking or can be heard Do you often feel tired/ No 04/07/25 12:37 fatigued/ sleepy during daytime? Has anyone observed you stop No 04/07/25 12:37 breathing during sleep? STOP Results Negative 04/07/25 12:37 QUESTION #5 FULL TEXT : Do you snore loudly (louder than talking or can be heard through closed doors)? 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 Specify any problems Hx of Preganancy in last 3 No 04/07/25 12:37 Months Nurse Filling Out Transfusion JZOLLINGE 04/07/25 12:37 & Questions: Date: 04/07/25 04/07/25 12:37 Time: 12:38 04/07/25 12:37 Patient unable to answer at this time (ie. confused, unrespo /Reproduction History /Reproductive History - hedge fund principal: /Reproductive Hx- hedge fund principal Hx Now No 04/07/25 12:37 Gestational Age (in weeks): EDC: Hx Hx Para Hx Section SAB No 04/07/25 12:37 Active Medications Active Medications: Current Medications Generic Name Dose Route Start Last Admin Trade Name Freq PRN Reason Stop Dose Admin Lactated Ringer's 1,000 mls @ 15 mls/hr 04/08/25 05:45 04/08/25 06:11 IV 15 mls/hr .Q48H SAKINA Administration PFSH Medical History Alcohol use Wears glasses ADHD Depression Anxiety Migraine headache Gastric reflux Non-smoker History of Holter monitoring Hypertension Sprain of left foot Left ankle sprain ADHD Generalized anxiety disorder Depression BPPV (benign paroxysmal positional vertigo) Angioedema Earache, left Contraceptive management Constipation Sinusitis, acute, maxillary Acute otitis media, right Abdominal pain URI (upper respiratory infection) Encounter for screening for COVID-19 GERD (gastroesophageal reflux disease) Anxiety Environmental allergies Home Medications ?Medication ?Instructions ?Recorded ?Last Taken ?Type linaclotide 145 mcg capsule 145 mcg PO .qd PRN constipation 09/30/24 04/06/25 History (Linzess) propranolol 20 mg tablet 20 mg PO .QD 09/30/24 04/06/25 History escitalopram oxalate 20 mg tablet 30 mg (1.5 x 20 mg) PO DAILY 30 01/06/25 04/06/25 Rx days #45 tabs clonazepam 0.5 mg tablet 0.5 mg PO DAILY PRN anxiety #30 02/15/25 Unknown Rx tabs famotidine 40 mg tablet (Pepcid) 40 mg PO QHS #90 tabs 02/16/25 04/06/25 Rx ondansetron 4 mg disintegrating 4 mg PO Q8H PRN PRN Nausea #30 tabs 02/16/25 Unknown Rx tablet pantoprazole 40 mg tablet,delayed 40 mg PO QDAY #90 tabs 02/16/25 04/06/25 Rx release drospirenone 3 mg-ethinyl 1 tab PO QDAY #84 tabs 03/31/25 04/07/25 Rx estradiol 0.02 mg tablet (Jaimie (28)) dextroamphetamine-amphetamine 5 mg 10 mg PO .qd 04/07/25 Unknown History tablet Allergy/AdvReac Type Severity Reaction Status Date / Time cyclobenzaprine (From Allergy Hives Verified 04/08/25 05:57 Flexeril) pineapple Allergy Hives Verified 04/08/25 05:57 Sulfa (Sulfonamide Allergy Hives Verified 04/08/25 05:57 Antibiotics) sulfamethoxazole (From Allergy Hives Verified 04/08/25 05:57 Bactrim) trimethoprim (From Bactrim) Allergy Hives Verified 04/08/25 05:57 amoxicillin (From Augmentin) AdvReac Diarrhea Verified 04/08/25 05:57 clavulanic acid (From AdvReac Diarrhea Verified 04/08/25 05:57 Augmentin) Family History Father Afib Other Breast cancer Hypertension Thyroid disorder Surgical History Hx of colonoscopy History of esophagogastroduodenoscopy (EGD) Social History Smoking Status: Never smoker alcohol intake: current alcohol intake frequency: a few times a week Alcohol type: wine substance use type: does not use what type of physical activity do you participate in: none Review of Systems (Anesthesia) ROS Narrative System reviewed and no additional complaints, except as documented.
--- NOTE | 2025-04-08 06:30 | EGD_PTH ---
PATIENT: CHER ANTONIO LOC: EN U#:[id number] AGE/SX: 20/F ROOM: RE04/08/[address]: Dr. Colt Jackson DO : 2005 BED: DIS: 04/08/2025 SPEC #: [id number] RECD: 04/08/25 10:20 STATUS: KEANU REBiju #: [id number] AKASH: 04/08/25 06:[address]: Colt Jackson DEPT: SURGICAL PATHOLOGY RECD BY: Sterling Leger ENTERED: 04/08/25 13:17 SP TYPE: EGD BIOPSY OT DR: Gini Rodríguez, [facility], DO Tissues: A - Duodenum, NOS B - Gastric mucous membrane C - Esophagus, NOS Procedures: Special Stain Group I Surgery Specimen Level IV GMS Stain (control) HEADER OPERATION: EGD with biopsy PRE-OP DIAGNOSIS: Constipation, irritable bowel syndrome, nausea, GERD TISSUE SUBMITTED: A- Duodenum biopsy, B- Gastric body biopsy, C- Random esophagus biopsy MICROSCOPIC DIAGNOSIS A. Duodenum, biopsy: Normal villous morphology. Negative for increased intraepithelial lymphocytes. B. Gastric body, biopsy: Oxyntic mucosa with no specific pathologic change. Negative for Helicobacter-like organisms (H&E). C. Esophagus, random biopsy: Squamous mucosa with reactive changes. No eosinophils noted. PASD stain is negative for fungal organisms. MICROSCOPIC DESCRIPTION Slides are reviewed. ?All matched controls reacted appropriately. These tests were developed and their performance characteristics determined by [facility]. They may not have been cleared or approved by the U.S. Food and Drug Administration. The FDA has determined that such clearance or approval is not necessary.? The above immunohistochemical?markers and/or special stains have been reviewed by the Pathologist. GROSS DESCRIPTION A. Received in fixative is one container labeled with the patient's name and designated Duodenum biopsy. The specimen consists of multiple irregular fragments of light young soft tissue that in aggregate measure 0.7 x 0.5 x 0.1 cm. The specimen is totally submitted in one cassette. B. Received in fixative is one container labeled with the patient's name and designated Gastric body biopsy. The specimen consists of four irregular fragments of light young soft tissue that measure <0.1 to 0.4 cm. Smallest fragment may not survive processing. The specimen is totally submitted in one cassette. C. Received in fixative is one container labeled with the patient's name and designated Random esophagus biopsy. The specimen consists of three irregular fragments of light young soft tissue that measure 0.2 to 0.5 cm. The specimen is totally submitted in one cassette. [place] 04/08/2025 CPT:41516k2,76047
--- NOTE | 2025-04-08 06:47 | PCM.HP.STD ---
HPI - General General Date of Admission: 04/08/25 Date of Service: 04/08/25 Chief Complaint: nausea, vomitng and constipation HPI Narrative CHER ANTONIO, is a 20 F who presents with Chief Complaint: nausea, vomiting, constipation OV 09/30/2024 19y/o female presents for follow-up post procedure. Colonoscopy was unremarkable 09/16/2024, biopsies consistent with melanosis coli. She was initially seen in the office 07/19/2024 with complaints of abdominal pain and constipation. Esophagram was unremarkable. She is continuing to experience chronic nausea and occasional breakthrough reflux but has reduced use of ondansetron to once a week. She discontinued Voquezna and sucralfate, and resumed pantoprazole 20mg daily at HS. I have increased pantoprazole to 40mg daily and recommended she take every morning before breakfast. She recently started Adderall and has noted a 10lb weight loss. She reports resolution in constipation with Linzess, but has reduced dosing to QOD due to causing diarrhea. I have provided her samples of Linzess 72mcg to take daily. SHe will provide symptom update in one week and follow-up in three months. Patient Instructions: Take pantoprazole 40mg once every day in the morning 30 minutes before breakfast Linzess 72mcg samples provided, takes once daily in the morning at least 30 minutes before food Contact office in 1 week with symptom update, and will send in RX of Linzess pending update Continue daily probiotic Follow-up in the office in 3 months - weight is down 3lbs in past three months - constant sore throat, scratchy voice - pantoprazole 40mg once daily - coughing more at HS when laying down, worse the past month - Linzess 72mcg once a day - has a BM 2-3x a week - stools are formed - can have an increase in mucus with stools - reports she never vomits - but reports she has severe emitophobioa - reports it is physically impossible for her to belch MBS 08/17/2024 Mild-moderate esophageal retention of cookie, which fully cleared w/ thin liquid wash. Esophagram: Normal plain film x-ray examination (barium swallow) of the esophagus. - reports she is pain all the time - I get a new pain everyday - ER September 12 confusion, migraine - reports all providers just think her symptoms are related to anxiety and never try to find out what is really wrong - every test comes back normal [facility] Medical History Alcohol use Wears glasses ADHD Depression Anxiety Migraine headache Gastric reflux Non-smoker History of Holter monitoring Hypertension Sprain of left foot Left ankle sprain ADHD Generalized anxiety disorder Depression BPPV (benign paroxysmal positional vertigo) Angioedema Earache, left Contraceptive management Constipation Sinusitis, acute, maxillary Acute otitis media, right Abdominal pain URI (upper respiratory infection) Encounter for screening for COVID-19 GERD (gastroesophageal reflux disease) Anxiety Environmental allergies Home Medications ?Medication ?Instructions ?Recorded ?Last Taken ?Type linaclotide 145 mcg capsule 145 mcg PO .qd PRN constipation 09/30/24 04/06/25 History (Linzess) propranolol 20 mg tablet 20 mg PO .QD 09/30/24 04/06/25 History escitalopram oxalate 20 mg tablet 30 mg (1.5 x 20 mg) PO DAILY 30 01/06/25 04/06/25 Rx days #45 tabs clonazepam 0.5 mg tablet 0.5 mg PO DAILY PRN anxiety #30 02/15/25 Unknown Rx tabs famotidine 40 mg tablet (Pepcid) 40 mg PO QHS #90 tabs 02/16/25 04/06/25 Rx ondansetron 4 mg disintegrating 4 mg PO Q8H PRN PRN Nausea #30 tabs 02/16/25 Unknown Rx tablet pantoprazole 40 mg tablet,delayed 40 mg PO QDAY #90 tabs 02/16/25 04/06/25 Rx release drospirenone 3 mg-ethinyl 1 tab PO QDAY #84 tabs 03/31/25 04/07/25 Rx estradiol 0.02 mg tablet (Jaimie (28)) dextroamphetamine-amphetamine 5 mg 10 mg PO .qd 04/07/25 Unknown History tablet Allergy/AdvReac Type Severity Reaction Status Date / Time cyclobenzaprine (From Allergy Hives Verified 04/08/25 05:57 Flexeril) pineapple Allergy Hives Verified 04/08/25 05:57 Sulfa (Sulfonamide Allergy Hives Verified 04/08/25 05:57 Antibiotics) sulfamethoxazole (From Allergy Hives Verified 04/08/25 05:57 Bactrim) trimethoprim (From Bactrim) Allergy Hives Verified 04/08/25 05:57 amoxicillin (From Augmentin) AdvReac Diarrhea Verified 04/08/25 05:57 clavulanic acid (From AdvReac Diarrhea Verified 04/08/25 05:57 Augmentin) Family History Father Afib Other Breast cancer Hypertension Thyroid disorder Surgical History Hx of colonoscopy History of esophagogastroduodenoscopy (EGD) Social History Smoking Status: Never smoker alcohol intake: current alcohol intake frequency: a few times a week Alcohol type: wine substance use type: does not use what type of physical activity do you participate in: none ROS Constitutional Constitutional: Denies fatigue, fever(s), poor appetite, weight gain or weight loss Gastrointestinal Gastrointestinal: Denies belching, bloating, change in bowel habits, change in stool character, chewing difficulty, coffee ground emesis, constipation, cramping, diarrhea, dyspepsia, dysphagia, early satiety, excessive flatus, fecal incontinence, heartburn, hematemesis, hematochezia, hemorrhoids, loose stools, melena, nausea, odynophagia, rectal bleeding, tenesmus, vomiting or weight changes Vital Signs Vital Signs Vital Signs: 04/08/25 06:00 04/08/25 06:02 04/08/25 06:29 Temperature 97.5 F L 97.5 F L Temperature Source Temporal Pulse Rate 71 71 Respiratory Rate 18 18 Respiratory Pattern Normal Blood Pressure 110/74 110/74 Blood Pressure Mean 86 Blood Pressure Source Monitor Blood Pressure Position Semi-Fowlers Blood Pressure Location Left Arm Pulse Ox 100 100 Oxygen Delivery Method Room Air Weight Weight: 131 lb 6.4 oz Body Mass Index (BMI) 24.0 Physical Exam Const alert, oriented x3, no apparent distress and healthy appearing General Appearance: cooperative GI normal to inspection, nondistended, normoactive bowel sounds, soft to palpation, non-tender and non-distended Percussion: normal to percussion Rectal Exam: deferred Results Lab / Micro Data Labs: Laboratory Results - last 24 hr 08/29/25 05:50: Urine Test Negative Assessment & Plan Assessment/Plan (1) Nausea: (2) IBS (irritable bowel syndrome): (3) Constipation: QUALIFIERS: Constipation type: chronic idiopathic constipation Qualified Code(s): K59.04 - Chronic idiopathic constipation (4) Dysphagia: (5) Diarrhea: PLAN: Assessment and Plan Assessment and Plan (1) Constipation: Status: Acute Qualifiers: Constipation type: chronic idiopathic constipation Qualified Code(s): K59.04 - Chronic idiopathic constipation (2) IBS (irritable bowel syndrome): Status: Acute (3) Nausea: Status: Acute (4) GERD (gastroesophageal reflux disease): Status: Acute Qualifiers: Esophagitis presence: esophagitis presence not specified Qualified Code(s): K21.9 - Gastro-esophageal reflux disease without esophagitis Orders: Orders Gastric Emptying Study - 4 HR Today K58.9 - Irritable bowel syndrome, unspecified, K59.04 - Chronic idiopathic constipation, R11.0 - Nausea Medications: New famotidine (Pepcid) 40 mg PO QHS 90 tabs 1RF Plan 19-year-old female presents for follow-up of constipation. She was last seen in the office on 09/30/2024 and had reported improvement in constipation with Linzess. I increased her pantoprazole to 40 mg daily due to complaints of constant nausea after meals. She is continuing to do well on her current dose of Linzess 72 mcg once daily with intermittent bouts of constipation. We have discussed increasing dose of Linzess to 145 mcg as needed for constipation. She is continuing to experience chronic abdominal pain, nausea and heartburn; despite pantoprazole 40 mg once daily. I have added Pepcid 40 mg at bedtime and scheduled her for a gastric emptying study and EGD. She will follow-up in the office post procedure. Note: [employer] speech recognition cytology technologist software was used to create portions of this document. Sound-alike and misspelled words, as well as other cytology technologist errors may be contained in the documentation. Patient Instructions: Continue pantoprazole 40mg every morning 30 minutes before breakfast Add pepcid 40mg at HS Continue Linzess 72mcg once daily - samples provided ot increase dose PRN GES and EGD Discuss billing concerns with financial services
[2025-04-08] MEDS: Lactated Ringers 500 ML IV (06:58)
[2025-04-08] MEDS: Lidocaine 1% (5 ml sdv) 5 ML Vial 10 ML IV (06:59)
--- NOTE | 2025-04-08 07:07 | PCM.POST.ANE ---
Anesthesia: Postop Eval I Current Vital Signs Temperature: 97.1 F Pulse Rate: 61 Blood Pressure: 102/61 Respiratory Rate: 18 Pulse Ox: 99 Oxygen Delivery Method: Room Air Assessment Airway patent: Yes Spontaneous unlabored respirations: Yes Mental status: Asleep nausea: No Vomiting: No Anesthesia Complication: No Fluid Hydration Crystalloid volume administer (ml): 500 Total IV fluid infused: 500 Progress Note Anesthesia document: Postop Eval 1 completed: Yes
--- NOTE | 2025-04-08 07:09 | OP.PROVAT_ITS ---
04/08/2025 Gini Rodríguez Do Re : Upper GI endoscopy procedure for Nona Brownlee Dear Marcos This procedure was performed on Tuesday, April 08, 2025. My impressions and recommendations are as follows: Impressions : - No gross lesions in the entire esophagus. - Erythematous mucosa in the gastric body and antrum. Biopsied. - Erythematous duodenopathy. Biopsied. - Biopsies were taken with a cold forceps for evaluation of eosinophilic esophagitis. Recommendations : - Discharge patient to home. - Resume previous diet. - Continue present medications. - Await pathology results. My findings are described in the full procedure note, which is enclosed. If I can be of further assistance, please feel free to contact me at . Sincerely, Colt Jackson, 04/08/2025 7:08:21 AM This report has been signed electronically.
--- NOTE | 2025-04-08 07:09 | OP.EGD_ITS ---
Patient Name: Nona Brownlee Procedure Date: 04/08/2025 6:21 AM Date of : 2005 Age: 20 Procedure: Upper GI endoscopy Indications: Epigastric abdominal pain, Abdominal pain in the left upper quadrant, Functional Dyspepsia, Indigestion, Failure to respond to medical treatment Providers: Colt Jackson DO Referring MD: Gini Rodríguez Do Medicines: Monitored Anesthesia Care Patient Profile: This is a 20 year old female. Refer to note in patient chart for documentation of history and physical. Patient has symptoms of chronic abdominal cramping, chronic abdominal distention, acute left upper quadrant abdominal pain, chronic epigastric abdominal pain, chronic dyspepsia, chronic nausea and chronic vomiting. Complications: No immediate complications. Procedure: Pre-Anesthesia Assessment: - Prior to the procedure, a History and Physical was performed, and patient medications and allergies were reviewed. The patient is competent. The risks and benefits of the procedure and the sedation options and risks were discussed with the patient. All questions were answered and informed consent was obtained. Patient identification and proposed procedure were verified by the physician in the pre-procedure area. Mental Status Examination: alert and oriented. Airway Examination: normal oropharyngeal airway and neck mobility. Respiratory Examination: clear to auscultation. CV Examination: normal. Prophylactic Antibiotics: The patient does not require prophylactic antibiotics. Prior Anticoagulants: The patient has taken no anticoagulant or antiplatelet agents. ASA Grade Assessment: II - A patient with mild systemic disease. After reviewing the risks and benefits, the patient was deemed in satisfactory condition to undergo the procedure. The anesthesia plan was to use monitored anesthesia care (MAC). Immediately prior to administration of medications, the patient was re-assessed for adequacy to receive sedatives. The heart rate, respiratory rate, oxygen saturations, blood pressure, adequacy of pulmonary ventilation, and response to care were monitored throughout the procedure. The physical status of the patient was re-assessed after the procedure. After obtaining informed consent, the endoscope was passed under direct vision. Throughout the procedure, the patient's blood pressure, pulse, and oxygen saturations were monitored continuously. The Endoscope was introduced through the mouth, and advanced to the third part of the duodenum. Small bowel enteroscopy was deemed necessary. The upper GI endoscopy was accomplished without difficulty. The patient tolerated the procedure well. Scope In: 6:58:41 AM Scope Out: 7:03:32 AM Total Procedure Duration Time 0 hours 4 minutes 51 seconds Findings: No gross lesions were noted in the entire esophagus. Biopsies were obtained from the proximal and distal esophagus with cold forceps for histology of suspected eosinophilic esophagitis. Striped mildly erythematous mucosa without bleeding was found in the gastric body and in the gastric antrum. Biopsies were taken with a cold forceps for histology. Biopsies were taken with a cold forceps for Helicobacter pylori testing. Verification of patient identification for the specimen was done. Estimated blood loss was minimal. Patchy mildly erythematous mucosa without active bleeding and with no stigmata of bleeding was found in the entire duodenum. Biopsies were taken with a cold forceps for histology. Verification of patient identification for the specimen was done. Estimated blood loss was minimal. Impression: - No gross lesions in the entire esophagus. - Erythematous mucosa in the gastric body and antrum. Biopsied. - Erythematous duodenopathy. Biopsied. - Biopsies were taken with a cold forceps for evaluation of eosinophilic esophagitis. Recommendation: - Discharge patient to home. - Resume previous diet. - Continue present medications. - Await pathology results. Procedure Code(s): --- Professional --- 41999, Small intestinal endoscopy, enteroscopy beyond second portion of duodenum, not including ileum; with biopsy, single or multiple CPT copyright 2021 [employer]. All rights reserved. The codes documented in this report are preliminary and upon oceanographer geological review may be revised to meet current compliance requirements. Colt Jackson DO 04/08/2025 7:08:21 AM This report has been signed electronically. Number of Addenda: 0 Note Initiated On: 04/08/2025 6:21 AM
--- NOTE | 2025-04-08 07:45 | POSTOPAN2_ITS ---
Anesthesia Postop Eval I Sum Postop Eval Completion status Anesthesia document: Postop Eval 1 completed: Yes Anesthesia Postop Eval I Summary Anesthesia Postop Eval I Summary: Anesthesia Postop Eval I: Assessment Summary Airway patent Yes 04/08/25 07:08 [email or web address] Spontaneous unlabored Yes 04/08/25 07:08 [email or web address] respirations Mental status Asleep 04/08/25 07:08 [email or web address] nausea No 04/08/25 07:08 [email or web address] Vomiting No 04/08/25 07:08 [email or web address] Anesthesia Postop Eval I: Fluid Summary Crystalloid volume administer 500 04/08/25 07:08 [email or web address] (ml) Colloids volume administered ( ml) Blood Product volume administered (ml) Total IV fluid infused 500 04/08/25 07:08 [email or web address] Anesthesia Postop Eval I: Summary Notes Anesthesia Complication No 04/08/25 07:08 [email or web address] Anesthesia Complication Comment: Post-operative progress note Anesthesia: Postop Eval II Evaluation Mental status: Awake Pain Level: 0 nausea: No Vomiting: No
--- NOTE | 2025-04-08 07:45 | PCM.POSTANE2 ---
Anesthesia Postop Eval I Sum Postop Eval Completion status Anesthesia document: Postop Eval 1 completed: Yes Anesthesia Postop Eval I Summary Anesthesia Postop Eval I Summary: Anesthesia Postop Eval I: Assessment Summary Airway patent Yes 04/08/25 07:08 GROUND SERVICE EQUIPMENT [email or web address] Spontaneous unlabored Yes 04/08/25 07:08 GROUND SERVICE EQUIPMENT [email or web address].[email or web address] respirations Mental status Asleep 04/08/25 07:08 GROUND SERVICE EQUIPMENT [email or web address] nausea No 04/08/25 07:08 GROUND SERVICE EQUIPMENT [email or web address] Vomiting No 04/08/25 07:08 GROUND SERVICE EQUIPMENT [email or web address].[email or web address] Anesthesia Postop Eval I: Fluid Summary Crystalloid volume administer 500 04/08/25 07:08 GROUND SERVICE EQUIPMENT [email or web address].ACAR (ml) Colloids volume administered ( ml) Blood Product volume administered (ml) Total IV fluid infused 500 04/08/25 07:08 GROUND SERVICE EQUIPMENT [email or web address].[email or web address] Anesthesia Postop Eval I: Summary Notes Anesthesia Complication No 04/08/25 07:08 GROUND SERVICE EQUIPMENT [email or web address].[email or web address] Anesthesia Complication Comment: Post-operative progress note Anesthesia: Postop Eval II Evaluation Mental status: Awake Pain Level: 0 nausea: No Vomiting: No
== END 2025-04-08 07:48 | disposition home or self-care (01) ==
LOC: EN 05:35 → AC 05:36
PROVIDERS: Anesthesiology; PCP Family Medicine; Referring Provider Family Medicine; Visit Provider Internal Medicine Gastroenterology
PROC: 0DJ08ZZ Inspection of Upper Intestinal Tract, Via Natural or Artificial Opening Endoscopic (ICD-10-PCS; CPT 43235; principal; 2025-04-08 06:25)
DX: K30 Functional dyspepsia (principal); K31.89 Other diseases of stomach and duodenum; K21.9 Gastro-esophageal reflux disease without esophagitis; K58.1 Irritable bowel syndrome with constipation; K59.04 Chronic idiopathic constipation; G89.29 Other chronic pain; Z79.899 Other long term (current) drug therapy
CPT/HCPCS: 43239; 81025; 88305; 88312; J2405